=== PATIENT | female | born 1985 | race Caucasian/White ===

== ENCOUNTER → 2020-11-03 10:30 | Outpatient (BNVA) | payer MEDICAID, SELFPAY | PROVIDERS: PCP Student in an Organized Health Care Education/Training Program; Referring Provider Student in an Organized Health Care Education/Training Program; Visit Provider Student in an Organized Health Care Education/Training Program | DX: Z76.89 Persons encountering health services in other specified circumstances (principal) ==

== ENCOUNTER 2020-11-10 14:18 | Outpatient (REF) | payer MEDICAID, SELFPAY ==
[2020-11-10 16:01] LABS: Hematocrit 33.9 % (37-47); MANUAL DIFF FLAG NO; Mean Corpuscular Volume 71.2 fL (80-98); Red Blood Count 4.76 X10*6/uL (4.20-5.50); SCAN SMEAR FLAG 1
[2020-11-10 16:03] LABS: Basophils Percent Auto 0.5 % (0-2); Eosinophils Absolute Auto 0.2 X10*3/uL (0.0-0.4); Eosinophils Percent Auto 2.4 % (0-4); Hemoglobin 10.8 g/dl (12.0-16.0); Imm Gran Abs Auto 0.01 X10*3/uL (0.00-0.03); Imm Gran Pct Auto 0.2 % (0.0-0.4); Lymphocytes Absolute Auto 1.6 X10*3/uL (1.2-4.9); Lymphocytes Percent Auto 24.1 % (20-40); Mean Corpuscular HGB Conc 31.9 g/dl (31.0-35.0); Mean Corpuscular Hemoglobin 22.7 pg (27.0-33.0); Monocytes Absolute Auto 0.5 X10*3/uL (0.1-1.2); Monocytes Percent Auto 7.5 % (2-11); Neutrophils Absolute Auto 4.4 X10*3/uL (2.0-8.3); Neutrophils Percent Auto 65.3 % (45-73); Platelet Count 258 X10*3/uL (160-400); Red Cell Distribution Width 15.6 % (11.0-16.0); White Blood Count 6.7 X10*3/uL (4.8-10.8)
[2020-11-10 16:25] LABS: PLT ABN DIST 1
[2020-11-10 17:06] LABS: Alanine Aminotransferase 19 U/L (0-31); Albumin Level 4.7 g/dL (3.5-5.0); Alkaline Phosphatase 68 U/L (39-117); Anion Gap 14 (12-20); Aspartate Amino Transferase 19 U/L (5-31); Bilirubin Total 0.5 mg/dL (0.0-1.0); Blood Urea Nitrogen 11 mg/dL (9-16); C Reactive Protein 0.03 mg/dL (< or = 0.50); Calcium 8.7 mg/dL (8.4-10.2); Carbon Dioxide 24 mmol/L (22-29); Chloride 107 mmol/L (96-108); Estimated Glomerular Filt Rate > 60; Glucose Random 87 mg/dL (60-115); Potassium 4.3 mmol/l (3.3-5.1); Sodium 141 mmol/L (135-145)
[2020-11-10 17:19] LABS: Erythrocyte Sedimentation Rate 1 MM/HR (0-20)
== END 2020-11-10 14:19 | disposition home or self-care (01) ==
LOC: HO.LAB 14:18
PROVIDERS: PCP Student in an Organized Health Care Education/Training Program; Visit Provider Student in an Organized Health Care Education/Training Program
DX: M05.9 Rheumatoid arthritis with rheumatoid factor, unspecified (principal)
CPT/HCPCS: 36415; 80053; 85025; 85652; 86140

== ENCOUNTER 2021-02-02 10:13 | Outpatient (REF) | payer MEDICAID, SELFPAY ==
--- NOTE | ~2021-02-02 | XR_ITS ---
EXAMINATION: XR LUMBOSACRAL SPINE CLINICAL INFORMATION: Rheumatoid arthritis with rheumatoid factor COMPARISON: None TECHNIQUE: Three views of the lumbosacral spine. FINDINGS: No acute fracture or subluxation. Vertebral body height and alignment is maintained. Disc spaces are maintained. The sacroiliac joints are symmetric. The visualized sacrum is intact. XR/XR lumbar spine 2-3V IMPRESSION: Unremarkable appearance of the lumbar spine.
--- NOTE | ~2021-02-02 | XR_ITS ---
EXAMINATION: XR PELVIS CLINICAL INFORMATION: Rheumatoid arthritis with rheumatoid factor COMPARISON: None TECHNIQUE: AP view of the pelvis. FINDINGS: IUD in place. No fracture or dislocation. The hips are well aligned. The sacroiliac joints are symmetric. There may be very early sclerosis along the sacroiliac joints. The bowel gas pattern is unremarkable. XR/XR pelvis 1-2V IMPRESSION: There may be very early sclerosis along the sacroiliac joints. Otherwise unremarkable appearance of the pelvis.
[2021-02-02 11:34] LABS: Imm Gran Abs Auto 0.01 X10*3/uL (0.00-0.03); Imm Gran Pct Auto 0.2 % (0.0-0.4); MANUAL DIFF FLAG SCAN; Red Cell Distribution Width 16.8 % (11.0-16.0); SCAN SMEAR FLAG 1
[2021-02-02 11:36] LABS: Basophils Percent Auto 0.7 % (0-2); Eosinophils Absolute Auto 0.2 X10*3/uL (0.0-0.4); Eosinophils Percent Auto 2.9 % (0-4); Hematocrit 33.4 % (37-47); Hemoglobin 11.1 g/dl (12.0-16.0); Lymphocytes Percent Auto 18.5 % (20-40); Mean Corpuscular HGB Conc 33.2 g/dl (31.0-35.0); Mean Corpuscular Hemoglobin 23.7 pg (27.0-33.0); Mean Corpuscular Volume 71.2 fL (80-98); Monocytes Absolute Auto 0.4 X10*3/uL (0.1-1.2); Monocytes Percent Auto 7.7 % (2-11); Neutrophils Absolute Auto 3.8 X10*3/uL (2.0-8.3); Platelet Count 223 X10*3/uL (160-400); Red Blood Count 4.69 X10*6/uL (4.20-5.50); White Blood Count 5.5 X10*3/uL (4.8-10.8)
[2021-02-02 11:39] LABS: PLT ABN DIST 1
[2021-02-02 12:17] LABS: Alanine Aminotransferase 21 U/L (0-31); Albumin Level 4.7 g/dL (3.5-5.0); Alkaline Phosphatase 51 U/L (39-117); Anion Gap 13 (12-20); Aspartate Amino Transferase 20 U/L (5-31); Blood Urea Nitrogen 11 mg/dL (9-16); C Reactive Protein 0.03 mg/dL (< or = 0.50); Calcium 8.6 mg/dL (8.4-10.2); Carbon Dioxide 22 mmol/L (22-29); Chloride 106 mmol/L (96-108); Estimated Glomerular Filt Rate > 60; Glucose Random 97 mg/dL (60-115); Potassium 4.2 mmol/L (3.3-5.1); Sodium 137 mmol/L (135-145); Total Protein 7.8 g/dL (6.5-8.0)
[2021-02-02 13:43] LABS: Erythrocyte Sedimentation Rate 1 MM/HR (0-20)
== END 2021-02-02 10:14 | disposition home or self-care (01) ==
LOC: HO.LAB 10:13
PROVIDERS: PCP Student in an Organized Health Care Education/Training Program; Visit Provider Student in an Organized Health Care Education/Training Program
DX: M05.9 Rheumatoid arthritis with rheumatoid factor, unspecified (principal); B18.1 Chronic viral hepatitis B without delta-agent; Z79.899 Other long term (current) drug therapy
CPT/HCPCS: 36415; 72100; 72170; 80053; 85025; 85652; 86140; 99212

== ENCOUNTER 2021-07-20 11:13 | Outpatient (REF) | payer MEDICAID, SELFPAY ==
[2021-07-20 14:14] LABS: Basophils Percent Auto 0.4 % (0-2); MANUAL DIFF FLAG SCAN; Mean Corpuscular HGB Conc 32.5 g/dl (31.0-35.0); SCAN SMEAR FLAG 1
[2021-07-20 14:16] LABS: Eosinophils Absolute Auto 0.2 X10*3/uL (0.0-0.4); Hematocrit 32.9 % (37-47); Hemoglobin 10.7 g/dl (12.0-16.0); Imm Gran Abs Auto 0.02 X10*3/uL (0.00-0.03); Imm Gran Pct Auto 0.3 % (0.0-0.4); Lymphocytes Absolute Auto 1.2 X10*3/uL (1.2-4.9); Lymphocytes Percent Auto 16.6 % (20-40); Mean Corpuscular Hemoglobin 23.3 pg (27.0-33.0); Mean Corpuscular Volume 71.7 fL (80-98); Monocytes Absolute Auto 0.6 X10*3/uL (0.1-1.2); Neutrophils Percent Auto 71.7 % (45-73); Platelet Count 223 X10*3/uL (160-400); Red Blood Count 4.59 X10*6/uL (4.20-5.50); Red Cell Distribution Width 16.4 % (11.0-16.0)
[2021-07-20 14:22] LABS: PLT ABN DIST 1
[2021-07-20 14:40] LABS: Alanine Aminotransferase 15 U/L (0-31); Albumin Level 4.3 g/dL (3.5-5.0); Alkaline Phosphatase 44 U/L (39-117); Anion Gap 10 (12-20); Aspartate Amino Transferase 17 U/L (5-31); Bilirubin Total 0.9 mg/dL (0.0-1.0); Blood Urea Nitrogen 9 mg/dL (9-16); C Reactive Protein 0.04 mg/dL (< or = 0.50); Calcium 8.9 mg/dL (8.4-10.2); Carbon Dioxide 26 mmol/L (22-29); Chloride 107 mmol/L (96-108); Estimated Glomerular Filt Rate > 60; Glucose Random 89 mg/dL (60-115); Potassium 4.4 mmol/L (3.3-5.1); Sodium 139 mmol/L (135-145); Total Protein 7.2 g/dL (6.5-8.0)
[2021-07-20 15:03] LABS: Erythrocyte Sedimentation Rate 2 MM/HR (0-20)
== END 2021-07-20 11:14 | disposition home or self-care (01) ==
LOC: HO.LAB 11:13
PROVIDERS: PCP Student in an Organized Health Care Education/Training Program; Visit Provider Nurse Practitioner Family
DX: M05.9 Rheumatoid arthritis with rheumatoid factor, unspecified (principal); B18.1 Chronic viral hepatitis B without delta-agent; M54.5 Low back pain; Z79.899 Other long term (current) drug therapy
CPT/HCPCS: 36415; 80053; 85025; 85652; 86140; 99212

== ENCOUNTER 2021-10-04 10:00 | Outpatient (RCR) | payer MEDICAID, SELFPAY | END 2021-11-22 07:32 | disposition home or self-care (01) | LOC: HO.PTWFD 10:00 | PROVIDERS: PCP Student in an Organized Health Care Education/Training Program; Visit Provider Nurse Practitioner Family | DX: M54.5 Low back pain (principal) | CPT/HCPCS: 97110; 97140; 97161; 97530; 97535 ==

== ENCOUNTER 2021-10-25 09:28 | Outpatient (REF) | payer MEDICAID, SELFPAY ==
[2021-10-25 10:44] LABS: MANUAL DIFF FLAG NO
[2021-10-25 10:59] LABS: Basophils Percent Auto 0.8 % (0-2); Eosinophils Absolute Auto 0.1 X10*3/uL (0.0-0.4); Eosinophils Percent Auto 2.5 % (0-4); Hematocrit 32.7 % (37.0-47.0); Hemoglobin 10.5 g/dl (12.0-16.0); Imm Gran Abs Auto 0.02 X10*3/uL (0.00-0.03); Imm Gran Pct Auto 0.4 % (0.0-0.4); Lymphocytes Absolute Auto 1.2 X10*3/uL (1.2-4.9); Lymphocytes Percent Auto 22.2 % (20-40); Mean Corpuscular HGB Conc 32.1 g/dl (31.0-35.0); Mean Corpuscular Hemoglobin 23.1 pg (27.0-33.0); Mean Corpuscular Volume 71.9 fL (80.0-98.0); Monocytes Absolute Auto 0.4 X10*3/uL (0.1-1.2); Monocytes Percent Auto 7.5 % (2-11); Neutrophils Absolute Auto 3.5 x10*3/uL (2.0-8.3); Neutrophils Percent Auto 66.6 % (45-73); Platelet Count 222 X10*3/uL (160-400); Red Blood Count 4.55 X10*6/uL (4.20-5.50); Red Cell Distribution Width 16.5 % (11.0-16.0); White Blood Count 5.2 X10*3/uL (4.8-10.8)
[2021-10-25 11:29] LABS: Alanine Aminotransferase 16 U/L (0-31); Albumin Level 4.5 g/dL (3.5-5.0); Alkaline Phosphatase 41 U/L (39-117); Anion Gap 8 (12-20); Aspartate Amino Transferase 17 U/L (5-31); Blood Urea Nitrogen 8 mg/dL (9-16); C Reactive Protein 0.03 mg/dL (< or = 0.50); Calcium 9.6 mg/dL (8.4-10.2); Carbon Dioxide 28 mmol/L (22-29); Chloride 107 mmol/L (96-108); Estimated Glomerular Filt Rate > 60; Glucose Random 90 mg/dL (60-115); Iron 219 mcg/dL (30-160); Percent Iron Saturation 82 % (15-50); Sodium 139 mmol/L (135-145); Total Iron Binding Capacity 266 mcg/dL (228-428); Total Protein 7.5 g/dL (6.5-8.0); Unsaturated Iron Binding 47 ug/dL
[2021-10-25 11:39] LABS: Erythrocyte Sedimentation Rate 2 MM/HR (0-20)
[2021-10-25 11:55] LABS: Ferritin 272 ng/mL (10-122)
== END 2021-10-25 09:29 | disposition home or self-care (01) ==
LOC: HO.LAB 09:28
PROVIDERS: PCP Student in an Organized Health Care Education/Training Program; Visit Provider Nurse Practitioner Family
DX: M05.9 Rheumatoid arthritis with rheumatoid factor, unspecified (principal); B18.1 Chronic viral hepatitis B without delta-agent; M54.50 Low back pain, unspecified
CPT/HCPCS: 36415; 80053; 82728; 83540; 85025; 85652; 86140; 99212

== ENCOUNTER → 2021-11-03 14:34 | Outpatient (BNV) | payer MEDICAID, SELFPAY | PROVIDERS: PCP Student in an Organized Health Care Education/Training Program; Referring Provider Nurse Practitioner Family; Visit Provider Internal Medicine | DX: D64.9 Anemia, unspecified (principal) | CPT/HCPCS: 99203; 99213; 99214 ==

== ENCOUNTER 2021-12-29 12:59 | Outpatient (REF) | payer MEDICAID, SELFPAY ==
--- NOTE | ~2021-12-29 | XR_ITS ---
EXAMINATION: LEFT KNEE AND RIGHT HAND. CLINICAL INFORMATION: Rheumatoid arthritis with rheumatoid factor. COMPARISON: None TECHNIQUE: Left knee 4 views. Right hand 3 views. FINDINGS: Left knee: The tricompartment joint space is maintained normal. No visible acute fracture, dislocation or loose body seen. No abnormal joint effusion seen. The soft tissues are normal. Right hand: The PIP, DIP and MCP joint spaces are maintained normal. There is consent was short fifth metacarpal. No visible acute fracture, dislocation or subluxation seen. Especially as no abnormality involving the first digit. The intercarpal and radial-ulnar carpal joint space is maintained normal as well. XR/XR knee LT 3V IMPRESSION: Unremarkable left knee exam. 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
--- NOTE | ~2021-12-29 | XR_ITS ---
EXAMINATION: LEFT KNEE AND RIGHT HAND. CLINICAL INFORMATION: Rheumatoid arthritis with rheumatoid factor. COMPARISON: None TECHNIQUE: Left knee 4 views. Right hand 3 views. FINDINGS: Left knee: The tricompartment joint space is maintained normal. No visible acute fracture, dislocation or loose body seen. No abnormal joint effusion seen. The soft tissues are normal. Right hand: The PIP, DIP and MCP joint spaces are maintained normal. There is consent was short fifth metacarpal. No visible acute fracture, dislocation or subluxation seen. Especially as no abnormality involving the first digit. The intercarpal and radial-ulnar carpal joint space is maintained normal as well. XR/XR hand RT min 3V IMPRESSION: Unremarkable left knee exam. 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
[2021-12-29 14:37] LABS: MANUAL DIFF FLAG NO
[2021-12-29 14:58] LABS: Basophils Percent Auto 0.4 % (0-2); Imm Gran Abs Auto 0.02 X10*3/uL (0.00-0.03); Imm Gran Pct Auto 0.3 % (0.0-0.4); Mean Corpuscular Volume 71.2 fL (80.0-98.0); SCAN SMEAR FLAG 1
[2021-12-29 15:00] LABS: Eosinophils Absolute Auto 0.2 X10*3/uL (0.0-0.4); Eosinophils Percent Auto 2.4 % (0-4); Hematocrit 33.6 % (37.0-47.0); Hemoglobin 10.9 g/dl (12.0-16.0); Lymphocytes Absolute Auto 1.5 X10*3/uL (1.2-4.9); Mean Corpuscular HGB Conc 32.4 g/dl (31.0-35.0); Mean Corpuscular Hemoglobin 23.1 pg (27.0-33.0); Monocytes Absolute Auto 0.6 X10*3/uL (0.1-1.2); Monocytes Percent Auto 8.8 % (2-11); Neutrophils Absolute Auto 4.8 x10*3/uL (2.0-8.3); Neutrophils Percent Auto 67.1 % (45-73); Platelet Count 239 X10*3/uL (160-400); Red Blood Count 4.72 X10*6/uL (4.20-5.50); Red Cell Distribution Width 16.8 % (11.0-16.0); White Blood Count 7.2 X10*3/uL (4.8-10.8)
[2021-12-29 15:28] LABS: PLT ABN DIST 1
[2021-12-29 15:33] LABS: Alanine Aminotransferase 15 U/L (0-31); Albumin Level 4.6 g/dL (3.5-5.0); Alkaline Phosphatase 45 U/L (39-117); Anion Gap 10 (12-20); Aspartate Amino Transferase 18 U/L (5-31); Bilirubin Total 1.2 mg/dL (0.0-1.0); Blood Urea Nitrogen 12 mg/dL (9-16); C Reactive Protein 0.03 mg/dL (< or = 0.50); Calcium 9.6 mg/dL (8.4-10.2); Carbon Dioxide 27 mmol/L (22-29); Chloride 105 mmol/L (96-108); Estimated Glomerular Filt Rate > 60; Glucose Random 89 mg/dL (60-115); Potassium 4.2 mmol/L (3.3-5.1); Sodium 138 mmol/L (135-145)
[2021-12-29 15:35] LABS: Erythrocyte Sedimentation Rate 2 MM/HR (0-20)
== END 2021-12-29 13:00 | disposition home or self-care (01) ==
LOC: HO.LAB 12:59
PROVIDERS: PCP Student in an Organized Health Care Education/Training Program; Visit Provider Nurse Practitioner Family
DX: M05.9 Rheumatoid arthritis with rheumatoid factor, unspecified (principal); M25.562 Pain in left knee; M54.50 Low back pain, unspecified; B18.1 Chronic viral hepatitis B without delta-agent
CPT/HCPCS: 36415; 73130; 73562; 80053; 85025; 85652; 86140; 99212

== ENCOUNTER 2022-01-13 11:31 | Outpatient (REF) | payer MEDICAID, SELFPAY ==
[2022-01-13 12:42] LABS: MANUAL DIFF FLAG NO
[2022-01-13 13:37] LABS: Basophils Percent Auto 0.5 % (0-2); Eosinophils Absolute Auto 0.1 X10*3/uL (0.0-0.4); Eosinophils Percent Auto 2.2 % (0-4); Hemoglobin 10.5 g/dl (12.0-16.0); Imm Gran Abs Auto 0.01 X10*3/uL (0.00-0.03); Imm Gran Pct Auto 0.2 % (0.0-0.4); Lymphocytes Absolute Auto 1.4 X10*3/uL (1.2-4.9); Lymphocytes Percent Auto 22.8 % (20-40); Mean Corpuscular HGB Conc 31.8 g/dl (31.0-35.0); Mean Corpuscular Hemoglobin 23.1 pg (27.0-33.0); Mean Corpuscular Volume 72.5 fL (80.0-98.0); Monocytes Absolute Auto 0.4 X10*3/uL (0.1-1.2); Neutrophils Absolute Auto 4.1 x10*3/uL (2.0-8.3); Neutrophils Percent Auto 67.3 % (45-73); Platelet Count 230 X10*3/uL (160-400); Red Blood Count 4.55 X10*6/uL (4.20-5.50); Red Cell Distribution Width 16.6 % (11.0-16.0)
[2022-01-13 13:58] LABS: Alanine Aminotransferase 19 U/L (0-31); Albumin Level 4.5 g/dL (3.5-5.0); Alkaline Phosphatase 42 U/L (39-117); Anion Gap 10 (12-20); Aspartate Amino Transferase 20 U/L (5-31); Bilirubin Total 0.9 mg/dL (0.0-1.0); Blood Urea Nitrogen 10 mg/dL (9-16); Calcium 9.4 mg/dL (8.4-10.2); Carbon Dioxide 27 mmol/L (22-29); Chloride 106 mmol/L (96-108); Estimated Glomerular Filt Rate > 60; Glucose Random 96 mg/dL (60-115); Sodium 139 mmol/L (135-145); Total Protein 7.7 g/dL (6.5-8.0)
[2022-01-13 14:21] LABS: Ferritin 242 ng/mL (10-122)
[2022-01-13 14:39] LABS: Folate > 20.0 ng/mL (> or = 4.0); Vitamin B12 750 pg/mL (200-900)
[2022-01-16 04:39] LABS: HBS Num1 0.03 mIU/mL (0-7.99); HBc Num1 12.32 S/CO (0.00-0.79); ~HepC Num1 0.06 S/CO (0.00-0.79); ~Hepatitis B Surface Antibody NONREACTIVE (Nonreactive); ~Hepatitis C Antibody Nonreactive (Nonreactive)
[2022-01-16 05:25] LABS: HBc Num2 12.65 S/CO; HBc Num3 12.12 S/CO; Hepatitis B Core Antibody Reactive (Nonreactive)
[2022-01-16 05:41] LABS: HBsAGNum2 Reactive; HBsAGNum3 Reactive; Hepatitis B Surface Antigen Retest CNFM (Negative)
[2022-01-16 05:44] LABS: Hepatitis B Surface Antigen Rep Reactive (Negative)
[2022-01-16 14:46] LABS: Hepatitis B Viral DNA Qn - cp 3.89 Log IU/mL (NOT DETECTED); Hepatitis B Viral DNA Qn-IU/mL 7700 IU/mL (NOT DETECTED)
[2022-01-16 16:26] LABS: Transglutaminase Ab IgG <1.0 U/mL; Transglutaminase IgA <1.0 U/mL
[2022-01-16 20:21] LABS: HCV Log PCR <1.18 NOT DETECTED Log IU/mL (NOT DETECTED); HepC Viral Load <15 NOT DETECTED IU/mL (NOT DETECTED)
[2022-01-16 22:40] LABS: Hematocrit 34.4 % (35.0-45.0); Hemoglobin 10.5 g/dL (11.7-15.5); MCH 22.5 pg (27.0-33.0); MCV 73.8 fL (80.0-100.0); RBC 4.66 Million/uL (3.80-5.10); RDW 18.1 % (11.0-15.0)
[2022-01-18 04:18] LABS: Hepatitis A Antibody IgM 0.27 Index (0-0.79); ~Hepatitis A Antibody IgM Nonreactive (Nonreactive)
[2022-01-18 13:02] LABS: Hepatitis BE Antibody REACTIVE (NON-REACTIVE); Hepatitis BE Antigen NON-REACTIVE (NON-REACTIVE)
== END 2022-01-13 11:32 | disposition home or self-care (01) ==
LOC: HO.LAB 11:31
PROVIDERS: PCP Student in an Organized Health Care Education/Training Program; Visit Provider Internal Medicine Gastroenterology
DX: B18.1 Chronic viral hepatitis B without delta-agent (principal); D50.9 Iron deficiency anemia, unspecified; G89.29 Other chronic pain; R10.33 Periumbilical pain; K75.81 Nonalcoholic steatohepatitis (NASH)
CPT/HCPCS: 36415; 80053; 82607; 82728; 82746; 83020; 85014; 85018; 85025; 85041; 86364; 86704; 86706; 86707; 86709; 86803; 87340; 87350; 87517; 87522; 99202

== ENCOUNTER 2022-02-01 11:00 | Outpatient (RCR) | payer MEDICAID, SELFPAY ==
--- NOTE | 2022-01-16 14:57 | MHC.OT.OEV ---
[address] [phone] F: [phone] Occupational Therapy Evaluation Diagnosis: RIGHT HAND PAIN Date of Onset: 12/26/21 Attending Provider: KANWAL ARMENDARIZ Prescribed Treatment: EVAL AND TREAT History of Current Condition: PT REPORTS 2-3 WEEKS OF PAIN IN RIGHT HAND THAT RADIATES THROUGH THE ELBOW AND SHOULDER. PT RIGHT HAND X-RAY ON 12/29/21 SHOWS NORMAL JOINT SPACE IN PIPs, DIPs, AND MCPs AND SHORT 5TH METACARPAL. 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 DIFFICULTY WITH COOKING, CLEANING, OPENING JARS, AND LIFTING KIDS UP. Sleep: DIFFICULTY SLEEPING DUE TO PAIN Driving: DIFFICULTY DRIVING. PT REPORTS DRIVING WITH LEFT HAND ONLY Pain Assessment Pain Score: 4 Pain Scale Used: Numeric (0 - 10) Pain Location and Description: PAIN MAINLY IN THENAR EMINENCE, THUMB WEB SPACE, AND MCP JOINTS. WHEN PAIN BECOMES INTENSE IT RADIATES UP THROUGH LATERAL ELBOW AND SHOULDER. PAIN AT REST: 3-4/10 PAIN WHEN AGGRAVATED: 7-8/10 Aggravating Factors: GRIPPING/GRABBING, LIFTING CHILDREN, COOKING AND CLEANING Alleviating Factors: TRIALED IBEPROFEN AND TYLENOL FOR PAIN RELIEF, MINIMAL RELIEF TRIALED HEAT, SOME PAIN RELIEF TRAILED COLD, NO RELIEF Skin and Soft Tissue Assessment Skin and Soft Tissue: Swelling Comments: PT RIGHT D2 PIP LARGER THAN LEFT D2 PIP, PT REPORTS IT WAS FROM A CHILDHOOD INJURY. PT PRESENTS WITH SHORTENED B/L D5. Nerve assessment Ulnar Nerve: WNL Median Nerve: WNL Radial Nerve: WNL Comments: Sensory Assessment Temperature: Light Touch: Proprioception: Vibration: Comments: REPORTS SOME TINGLING IN RIGHT HAND. SEMMES JASMEET: RIGHT THENAR EMINENCE 3.61 LEFT THENAR EMINENCE 2.83 Edema Assessment Upper Extremity: Right Impaired Lower Extremity: Comments: SOME EDEMA IN RIGHT THENAR EMINENCE. Dexterity Assessment Dexterity: Not Tested Comments: DENIES DIFFICULTIES WITH FINE MOTOR TASKS WITH ADLs OR IADLs Special Tests Comments: FINKLESTEINS (+) EMPTY CAN TEST (+) AROM(PROM) Strength Cervical Cervical Flexion: Cervical Extension: Cervical Lateral Flexion: Cervical Rotation: Comments: WFL Shoulder Flexion: Extension: Abduction: Internal Rotation: External Rotation: Comments: WFL Flexion: Extension: Abduction: Internal Rotation: External Rotation: Comments: Elbow Flexion: Extension: Pronation: Supination: Comments: WFL Flexion: Extension: Pronation: Supination: Comments: Wrist Flexion: Extension: Ulnar Deviation: Radial Deviation: Comments: WFL Flexion: Extension: Ulnar Deviation: Radial Deviation: Comments: Thumb Thumb CMC Flexion: Thumb MCP Flexion: Thumb IP Flexion: Radial Abduction: Palmar Abduction: [place] (Kapandji 0-10): Comments: WFL Digits Index MCP: PIP: DIP: Long MCP: PIP: DIP: Ring MCP: PIP: DIP: Small MCP: PIP: DIP: Comments: WFL Gross Grasp: R 15 L 35 Lateral Pinch: R 10 L 14 Two-Point Pinch: Three-Jaw Roberto: Comments: Patient Education Primary Language: Nigerian Rn Home Care Required: Yes Current Knowledge: Understands information with skills for self-management Teaching Method: Audio/Video Demonstration Handouts Education Needs Identified on Evaluation: ADL's Disease Information Equipment Use Exercise Pain Safety How did patient/family demonstrate learning? Patient demonstrates Patient verbalizes Barriers to Learning: None Readiness for Learning: Accepting Who was educated? Patient Comments: [facility] [place] ENGINEER PRESENT FOR EVAL Plan of Care Assessment: 36 YO FEMALE REFERRED TO OT FOR RIGHT HAND PAIN. PT REPORTS PAIN HAS BEEN HIGH FOR THE PAST 3 WEEKS. PT HAD AN X-RAY ON 12/29/21 OF THE RIGHT HAND SHOWING NO FX OR DISLOCATION, AND NORMAL JOINT SPACE IN PIPs, DIPs AND MCPs. CURRENTLY, PT PRESENTS WITH RIGHT DECREASED WATCHER LOOKOUT TOWER STRENGTH AND PAIN THROUGHOUT THE RIGHT HAND, SPECIFICALLY IN THE THENAR EMINENCE, WEB SPACE AND MCPS. PT REPORTS SOMETIMES PAIN RADIATES THROUGH THE LATERAL ELBOW AND UP INTO THE SHOULDER, WITH SOME TINGLING IN THE RIGHT HAND. PT HAD (+) FINKLESTEINS TEST AND (+) EMPTY CAN TEST. 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 PT TO CONT OT SERVICES FOR PAIN MANAGEMENT, PT EDUCATION AND TO IMPROVE STRENGTH AND FUNCTION TO PROMOTE BEST ABILITY TO FUNCTION. STG Duration: 2 WEEKS Short Term Goals: IND WITH HEP PT TO REPORT IND WITH JOINT PROTECTION TECHNIQUES PT TO REPORT IND WITH HEAT MODALITY FOR PAIN RELIEF PT TO REPORT <2/10 PAIN AT REST PT WATCHER LOOKOUT TOWER STRENGTH >25 LBS LTG Duration: 4 WEEKS Logistics Officer Goals: PT TO REPORT PAIN <3/10 DURING LIGHT ACTIVITY PT WATCHER LOOKOUT TOWER STRENGTH >30 LBS QUICKDASH < 15 DEMO PROPER LIFTING TECHNIQUES UP TO 10 POUNDS WITH <4/10 PAIN Frequency and Duration: The patient will be seen 2X/WEEK FOR 4 WEEKS Treatment Plan: Therapeutic Exercise Therapeutic Activity Home Exercise Program Splinting Patient Education Edema Control ADL Training Ultrasound Iontophoresis Paraffin Fluidotherapy MHP Joint Mobilization Soft Tissue Mobilization Kinesiotaping EDUCATE AND PRACTICE TENDON GLIDES, TINNEL TEST TO LATERAL ELBOW FOR LATERAL EPICONDYLITIS Electronically Signed By: Christelle Marrero OT/s Reviewed/agree with student documentation: Yes Therapist: HANSA AGUIRRE OTR/L Please sign and return to therapist, Thank you for your referral.
--- NOTE | 2022-02-07 11:34 | MHC.OT.DC ---
[address] [phone] F: [phone] Occupational Therapy Discharge Note Provider: Inga Green Diagnosis: RIGHT HAND PAIN Date of Evaluation: 01/16/22 Date of Discharge: 02/07/22 Treatments to Date: 4 Cancellations to Date: 3 No Shows to Date: 0 Discharge Status: Improved Function Independent with HEP Patient Elected to Stop Discharge Summary: MS SAHU PRESENTED TO OT FOR HAND PAIN. A HAND BASED ORTHOSIS WAS FABRICATED FOR USE DURING IADLs, AND Pt WAS EDUCATED ON A HEP INCLUDING ISOMETRIC EXERCISES FOR THE HANDS AND PROXIMAL STRENGTHENING. Pt HAD DECREASED PAIN WITH USE OF HEAT MODALITIES, INCLUDING PARAFFIN WAX. Pt HAS ELECTED TO DISCONTINUE OT AND CONTINUE WITH A HOME BASED PROGRAM. D/C OT SERVICES. Electronically Signed By: GUNNER ROSAS/Katja Reviewed/agree with student documentation: N/A Therapist: Please Sign and return to therapist, thank you for your referral.
== END 2022-02-07 11:35 | disposition home or self-care (01) ==
LOC: HO.OT 11:00
PROVIDERS: PCP Student in an Organized Health Care Education/Training Program; Visit Provider Nurse Practitioner Family
DX: M05.9 Rheumatoid arthritis with rheumatoid factor, unspecified (principal); M79.641 Pain in right hand
CPT/HCPCS: 29130; 97110; 97140; 97165; 97760

== ENCOUNTER 2022-03-28 10:43 | Outpatient (REF) | payer MEDICAID, SELFPAY ==
[2022-03-28 13:36] LABS: Erythrocyte Sedimentation Rate 2 MM/HR (0-20)
[2022-03-28 13:44] LABS: Alanine Aminotransferase 14 U/L (0-31); Albumin Level 4.3 g/dL (3.5-5.0); Alkaline Phosphatase 43 U/L (39-117); Anion Gap 11 (12-20); Aspartate Amino Transferase 16 U/L (5-31); Bilirubin Total 0.7 mg/dL (0.0-1.0); Blood Urea Nitrogen 10 mg/dL (9-16); C Reactive Protein 0.04 mg/dL (< or = 0.50); Calcium 9.4 mg/dL (8.4-10.2); Carbon Dioxide 27 mmol/L (22-29); Chloride 106 mmol/L (96-108); Estimated Glomerular Filt Rate > 60; Glucose Random 86 mg/dL (60-115); Sodium 140 mmol/L (135-145); Total Protein 7.5 g/dL (6.5-8.0)
== END 2022-03-28 10:44 | disposition home or self-care (01) ==
LOC: HO.LAB 10:43
PROVIDERS: PCP Student in an Organized Health Care Education/Training Program; Visit Provider Nurse Practitioner Family
DX: M05.9 Rheumatoid arthritis with rheumatoid factor, unspecified (principal); M54.50 Low back pain, unspecified; M25.562 Pain in left knee; B18.1 Chronic viral hepatitis B without delta-agent
CPT/HCPCS: 36415; 80053; 85652; 86140; 99212

== ENCOUNTER 2022-07-27 12:42 | Outpatient (REF) | payer MEDICAID, SELFPAY ==
[2022-07-27 14:00] LABS: MANUAL DIFF FLAG NO
[2022-07-27 14:17] LABS: Basophils Absolute Auto 0.1 X10*3/uL (0.0-0.2); Basophils Percent Auto 0.7 % (0-2); Eosinophils Absolute Auto 0.2 X10*3/uL (0.0-0.4); Eosinophils Percent Auto 2.4 % (0-4); Hematocrit 32.7 % (37.0-47.0); Hemoglobin 10.7 g/dl (12.0-16.0); Imm Gran Abs Auto 0.02 X10*3/uL (0.00-0.03); Imm Gran Pct Auto 0.3 % (0.0-0.4); Lymphocytes Absolute Auto 1.7 X10*3/uL (1.2-4.9); Lymphocytes Percent Auto 22.2 % (20-40); Mean Corpuscular HGB Conc 32.7 g/dl (31.0-35.0); Mean Corpuscular Hemoglobin 22.9 pg (27.0-33.0); Monocytes Absolute Auto 0.6 X10*3/uL (0.1-1.2); Neutrophils Absolute Auto 5.1 x10*3/uL (2.0-8.3); Neutrophils Percent Auto 66.4 % (45-73); Platelet Count 267 X10*3/uL (160-400); Red Blood Count 4.67 X10*6/uL (4.20-5.50); Red Cell Distribution Width 16.5 % (11.0-16.0); White Blood Count 7.7 X10*3/uL (4.8-10.8)
[2022-07-27 14:26] LABS: Alanine Aminotransferase 16 U/L (0-31); Aspartate Amino Transferase 18 U/L (5-31); C Reactive Protein 0.13 mg/dL (< or = 0.50); Estimated Glomerular Filt Rate > 60
[2022-07-27 15:04] LABS: Erythrocyte Sedimentation Rate 5 MM/HR (0-20)
== END 2022-07-27 12:43 | disposition home or self-care (01) ==
LOC: HO.10HDL 12:42
PROVIDERS: Visit Provider Nurse Practitioner Family
DX: M05.9 Rheumatoid arthritis with rheumatoid factor, unspecified (principal); M25.562 Pain in left knee; B18.1 Chronic viral hepatitis B without delta-agent; M54.50 Low back pain, unspecified; Z79.899 Other long term (current) drug therapy
CPT/HCPCS: 36415; 82565; 84450; 84460; 85025; 85652; 86140; 99212

== ENCOUNTER 2022-10-23 12:35 | Outpatient (REF) | payer MEDICAID, SELFPAY ==
[2022-10-23 13:00] LABS: MANUAL DIFF FLAG NO
[2022-10-23 14:22] LABS: Basophils Percent Auto 0.4 % (0-2); Eosinophils Absolute Auto 0.1 X10*3/uL (0.0-0.4); Eosinophils Percent Auto 1.3 % (0-4); Hematocrit 30.9 % (37.0-47.0); Imm Gran Abs Auto 0.02 X10*3/uL (0.00-0.03); Imm Gran Pct Auto 0.3 % (0.0-0.4); Lymphocytes Absolute Auto 1.1 X10*3/uL (1.2-4.9); Lymphocytes Percent Auto 14.6 % (20-40); Mean Corpuscular HGB Conc 32.4 g/dl (31.0-35.0); Mean Corpuscular Hemoglobin 22.7 pg (27.0-33.0); Mean Corpuscular Volume 70.1 fL (80.0-98.0); Monocytes Absolute Auto 0.5 X10*3/uL (0.1-1.2); Neutrophils Absolute Auto 5.9 x10*3/uL (2.0-8.3); Neutrophils Percent Auto 76.4 % (45-73); Platelet Count 285 X10*3/uL (160-400); Red Blood Count 4.41 X10*6/uL (4.20-5.50); Red Cell Distribution Width 16.6 % (11.0-16.0); White Blood Count 7.7 X10*3/uL (4.8-10.8)
[2022-10-23 14:39] LABS: Alanine Aminotransferase 12 U/L (0-31); Albumin Level 4.2 g/dL (3.5-5.0); Alkaline Phosphatase 60 U/L (39-117); Anion Gap 10 (12-20); Aspartate Amino Transferase 15 U/L (5-31); Bilirubin Total 0.8 mg/dL (0.0-1.0); Blood Urea Nitrogen 10 mg/dL (9-16); Calcium 8.9 mg/dL (8.4-10.2); Carbon Dioxide 25 mmol/L (22-29); Chloride 108 mmol/L (96-108); Estimated Glomerular Filt Rate > 60; Glucose Random 88 mg/dL (60-115); Potassium 3.9 mmol/L (3.3-5.1); Sodium 139 mmol/L (135-145); Total Protein 7.6 g/dL (6.5-8.0)
[2022-10-24 16:03] LABS: Hepatitis B Viral DNA Qn - cp 3.59 Log IU/mL (NOT DETECTED); Hepatitis B Viral DNA Qn-IU/mL 3910 IU/mL (NOT DETECTED)
[2022-10-25 13:14] LABS: HBsAGNum2 Reactive; HBsAGNum3 Reactive
[2022-10-25 13:22] LABS: Hepatitis B Surface Antigen Reactive (Negative); Hepatitis B Surface Antigen Retest CNFM (Negative)
[2022-10-25 13:23] LABS: Neutralization % 97
[2022-10-25 23:23] LABS: Hepatitis BE Antibody REACTIVE (NON-REACTIVE); Hepatitis BE Antigen NON-REACTIVE (NON-REACTIVE)
[2022-10-28 10:48] LABS: Hepatitis B Core Antibody IgM NON-REACTIVE (NON-REACTIVE)
== END 2022-10-23 12:36 | disposition home or self-care (01) ==
LOC: HO.LAB 12:35
PROVIDERS: PCP Student in an Organized Health Care Education/Training Program; Visit Provider Internal Medicine Gastroenterology
DX: K75.81 Nonalcoholic steatohepatitis (NASH) (principal); B18.1 Chronic viral hepatitis B without delta-agent
CPT/HCPCS: 36415; 80053; 85025; 86705; 86707; 87340; 87350; 87517; 99212

== ENCOUNTER 2022-11-27 11:02 | Outpatient (REF) | payer MEDICAID, SELFPAY ==
[2022-11-27 13:36] LABS: C Reactive Protein < 0.10 mg/dL (< or = 0.50)
[2022-11-27 13:45] LABS: Erythrocyte Sedimentation Rate 2 MM/HR (0-20)
== END 2022-11-27 11:03 | disposition home or self-care (01) ==
LOC: HO.LAB 11:02
PROVIDERS: PCP Student in an Organized Health Care Education/Training Program; Visit Provider Nurse Practitioner Family
DX: M05.9 Rheumatoid arthritis with rheumatoid factor, unspecified (principal); M25.562 Pain in left knee; B18.1 Chronic viral hepatitis B without delta-agent
CPT/HCPCS: 36415; 85652; 86140; 99212

== ENCOUNTER 2022-12-04 09:10 | Outpatient (REF) | payer MEDICAID, SELFPAY ==
--- NOTE | ~2022-12-04 | US_ITS ---
EXAMINATION: US ABDOMEN LIMITED WITH LIVER ELASTOGRAPHY CLINICAL INFORMATION: Nonalcoholic steatohepatitis. COMPARISON: Abdominal ultrasound dated 09/24/1718. TECHNIQUE: Real-time imaging of the abdominal viscera. Noninvasive ultrasound liver fibrosis assessment is performed using Jerman ElastPQ point quantification shear wave elastography (2D-SWE) with a C5-2 MHz transducer. Multiple elastography samples are obtained. FINDINGS: PANCREAS: Normal. The visualized pancreatic head and body are normal in appearance. The remainder of the pancreas is obscured from visualization by the overlying bowel gas. LIVER: The liver demonstrates normal size, contour and generally increased echogenicity. No focal lesion or intrahepatic biliary duct dilatation. The right lobe measures 14.9 cm in length. The left lobe measures 9.4 cm in length. Portal flow is towards the liver (hepatopetal). Shear wave liver elastography median stiffness is 1.29 m/s (reference: normal median stiffness is 1.3 m/s or less). IQR/median stiffness to assess sampling precision is 0.13 (reference: good quality data set is IQR/median stiffness of 0.15 or less). GALLBLADDER: Normal. The gallbladder is physiologically distended without evidence of stones, sludge, polyps, wall thickening or pericholecystic fluid. COMMON BILE DUCT: Normal in caliber measuring 0.2 cm in diameter. RIGHT KIDNEY: Normal. No hydronephrosis. No renal calculi or focal parenchymal lesions. The kidney measures 12.4 cm in maximum dimension. FREE FLUID: None. US/US abdomen dockery w elastography IMPRESSION: 1. There is generalized increase in hepatic echotexture, consistent with fatty infiltration or hepatocellular disease. Please correlate clinically. No focal hepatic mass or intrahepatic biliary dilatation is seen. 2. Liver elastography: Measurements are consistent with a high probability of normal liver stiffness. REFERENCE: Society of Radiologists in Ultrasound Liver Stiffness Thresholds (2020): LIVER STIFFNESS THRESHOLDS: *Liver Stiffness equal or less than 1.3 m/s: High probability of being normal. *Liver Stiffness less than 1.7 m/s: In the absence of other known clinical signs, rules out compensated advanced chronic liver disease. *Liver Stiffness 1.7-2.1 m/s: Suggestive of compensated advanced chronic liver disease but need further test for confirmation. *Liver Stiffness over 2.1 m/s: Rules in compensated advanced chronic liver disease. *Liver Stiffness over 2.4 m/s: Suggestive of clinically significant portal hypertension. QUALITY OF DATA SET: *IQR/Median value equal or less than 0.15 implies a quality data set. *IQR/Median value over 0.15 implies a poor quality data set. SIGNIFICANT CHANGE FROM PRIOR EXAM: Significant change if liver stiffness measurement is 10% or greater from prior exam. OTHER CONSIDERATIONS: The stage of liver fibrosis may be overestimated in the setting of acute hepatitis, liver inflammation, elevated liver function tests, hepatic vascular congestion, obstructive cholestasis, non-fasting state, and infiltrative diseases such as amyloidosis and lymphoma. In some patients with NAFLD, the liver stiffness thresholds for compensated advanced chronic liver disease may be lower. In causes other than viral hepatitis and NAFLD, liver stiffness thresholds are not well established.
== END 2022-12-04 09:11 | disposition home or self-care (01) ==
LOC: HO.US 09:10
PROVIDERS: PCP Student in an Organized Health Care Education/Training Program; Visit Provider Internal Medicine Gastroenterology
DX: K75.81 Nonalcoholic steatohepatitis (NASH) (principal); K74.60 Unspecified cirrhosis of liver
CPT/HCPCS: 76705; 76981

== ENCOUNTER → 2023-01-15 11:55 | Outpatient (BNVA) | payer MEDICAID, SELFPAY | PROVIDERS: PCP Student in an Organized Health Care Education/Training Program; Visit Provider Nurse Practitioner Family | DX: M05.9 Rheumatoid arthritis with rheumatoid factor, unspecified (principal); M25.512 Pain in left shoulder; R20.0 Anesthesia of skin; R20.2 Paresthesia of skin; B18.1 Chronic viral hepatitis B without delta-agent | CPT/HCPCS: 99212 ==

== ENCOUNTER 2023-03-23 10:09 | Outpatient (REF) | payer MEDICAID, SELFPAY ==
[2023-03-23 11:29] LABS: MANUAL DIFF FLAG NO
[2023-03-23 12:08] LABS: Basophils Absolute Auto 0.1 X10*3/uL (0.0-0.2); Eosinophils Absolute Auto 0.5 X10*3/uL (0.0-0.4); Eosinophils Percent Auto 7.3 % (0-4); Hematocrit 31.5 % (37.0-47.0); Hemoglobin 10.3 g/dl (12.0-16.0); Imm Gran Abs Auto 0.02 X10*3/uL (0.00-0.03); Imm Gran Pct Auto 0.3 % (0.0-0.4); Lymphocytes Absolute Auto 1.1 X10*3/uL (1.2-4.9); Lymphocytes Percent Auto 17.2 % (20-40); Mean Corpuscular HGB Conc 32.7 g/dl (31.0-35.0); Mean Corpuscular Hemoglobin 23.1 pg (27.0-33.0); Mean Corpuscular Volume 70.8 fL (80.0-98.0); Monocytes Absolute Auto 0.5 X10*3/uL (0.1-1.2); Monocytes Percent Auto 8.3 % (2-11); Neutrophils Absolute Auto 4.1 x10*3/uL (2.0-8.3); Neutrophils Percent Auto 65.9 % (45-73); Platelet Count 238 X10*3/uL (160-400); Red Blood Count 4.45 X10*6/uL (4.20-5.50); Red Cell Distribution Width 16.4 % (11.0-16.0); White Blood Count 6.2 X10*3/uL (4.8-10.8)
[2023-03-23 12:48] LABS: Erythrocyte Sedimentation Rate 2 MM/HR (0-20)
[2023-03-23 13:11] LABS: Alanine Aminotransferase 15 U/L (0-31); Albumin Level 4.4 g/dL (3.5-5.0); Alkaline Phosphatase 48 U/L (39-117); Anion Gap 9 (12-20); Aspartate Amino Transferase 18 U/L (5-31); Bilirubin Total 0.8 mg/dL (0.0-1.0); Blood Urea Nitrogen 9 mg/dL (9-16); C Reactive Protein < 0.10 mg/dL (< or = 0.50); Calcium 9.7 mg/dL (8.4-10.2); Carbon Dioxide 27 mmol/L (22-29); Chloride 108 mmol/L (96-108); Estimated Glomerular Filt Rate > 60; Glucose Random 82 mg/dL (60-115); Potassium 4.1 mmol/L (3.3-5.1); Sodium 140 mmol/L (135-145); Total Protein 7.4 g/dL (6.5-8.0)
[2023-03-23 13:31] LABS: Folate > 20.0 ng/mL (> or = 4.0); Vitamin B12 1237 pg/mL (200-900)
[2023-03-26 04:38] LABS: HBc Num1 10.65 S/CO (0.00-0.79)
[2023-03-26 05:16] LABS: HBc Num2 10.52 S/CO; HBc Num3 10.47 S/CO; Hepatitis B Core Antibody Reactive (Nonreactive)
[2023-03-26 08:38] LABS: Hepatitis B Viral DNA Qn - cp 3.61 Log IU/mL (NOT DETECTED); Hepatitis B Viral DNA Qn-IU/mL 4070 IU/mL (NOT DETECTED)
[2023-03-26 23:28] LABS: Hepatitis BE Antibody REACTIVE (NON-REACTIVE)
[2023-03-27 01:24] LABS: Hepatitis BE Antigen NON-REACTIVE (NON-REACTIVE)
[2023-03-27 12:09] LABS: Hepatitis B Core Antibody IgM NON-REACTIVE (NON-REACTIVE)
== END 2023-03-23 10:10 | disposition home or self-care (01) ==
LOC: HO.LAB 10:09
PROVIDERS: Nurse Practitioner Family; PCP Student in an Organized Health Care Education/Training Program; Visit Provider Internal Medicine Gastroenterology
DX: K75.81 Nonalcoholic steatohepatitis (NASH) (principal); M05.9 Rheumatoid arthritis with rheumatoid factor, unspecified; B18.1 Chronic viral hepatitis B without delta-agent
CPT/HCPCS: 36415; 80053; 82607; 82746; 85025; 85652; 86140; 86704; 86705; 86707; 87350; 87517; 99212

== ENCOUNTER → 2023-03-29 09:43 | Outpatient (BNVA) | payer MEDICAID, SELFPAY | PROVIDERS: PCP Student in an Organized Health Care Education/Training Program; Visit Provider Nurse Practitioner Family | DX: M05.9 Rheumatoid arthritis with rheumatoid factor, unspecified (principal); B18.1 Chronic viral hepatitis B without delta-agent | CPT/HCPCS: 99212 ==

== ENCOUNTER 2023-09-13 08:35 | Outpatient (REF) | payer MEDICAID, SELFPAY ==
[2023-09-13 09:08] LABS: Eosinophils Absolute Auto 0.2 X10*3/uL (0.0-0.4); Monocytes Absolute Auto 0.5 X10*3/uL (0.1-1.2); SCAN SMEAR FLAG 1
[2023-09-13 09:10] LABS: Basophils Percent Auto 0.5 % (0-2); Eosinophils Percent Auto 2.9 % (0-4); Hematocrit 30.7 % (37.0-47.0); Hemoglobin 9.9 g/dl (12.0-16.0); Imm Gran Abs Auto 0.08 X10*3/uL (0.00-0.03); Imm Gran Pct Auto 1.1 % (0.0-0.4); Lymphocytes Percent Auto 13.1 % (20-40); Mean Corpuscular HGB Conc 32.2 g/dl (31.0-35.0); Mean Corpuscular Hemoglobin 22.9 pg (27.0-33.0); Mean Corpuscular Volume 71.1 fL (80.0-98.0); Monocytes Percent Auto 6.8 % (2-11); Neutrophils Absolute Auto 5.5 x10*3/uL (2.0-8.3); Neutrophils Percent Auto 75.6 % (45-73); Platelet Count 229 X10*3/uL (160-400); Red Blood Count 4.32 X10*6/uL (4.20-5.50); Red Cell Distribution Width 16.3 % (11.0-16.0); White Blood Count 7.3 X10*3/uL (4.8-10.8)
[2023-09-13 09:24] LABS: PLT ABN DIST 1
[2023-09-13 09:25] LABS: MANUAL DIFF FLAG NO
[2023-09-13 09:52] LABS: Erythrocyte Sedimentation Rate 2 MM/HR (0-20)
[2023-09-13 11:26] LABS: Alanine Aminotransferase 10 U/L (0-31); Aspartate Amino Transferase 16 U/L (5-31); C Reactive Protein < 0.10 mg/dL (< or = 0.50); Estimated Glomerular Filt Rate > 60
== END 2023-09-13 08:36 | disposition home or self-care (01) ==
LOC: HO.LAB 08:35
PROVIDERS: PCP Student in an Organized Health Care Education/Training Program; Visit Provider Nurse Practitioner Family
DX: M05.9 Rheumatoid arthritis with rheumatoid factor, unspecified (principal); Z79.899 Other long term (current) drug therapy
CPT/HCPCS: 36415; 82565; 84450; 84460; 85025; 85652; 86140

== ENCOUNTER 2023-09-18 09:45 | Outpatient (AMB) | payer MEDICAID, SELFPAY ==
[2023-09-18 09:47] VITALS: BP 98/86; PULSE 85; TEMP 36.1; O2SAT 97; BMI 22.3
--- NOTE | 2023-09-18 09:47 | MHC.OFFVIS ---
Intake Vital Signs 09/18/23 09:47 Height 5 ft 2 in Weight 122 lb BMI 22.3 BP 98/86 Blood Pressure Location Rt brachial Position Sitting Pulse 85 Pulse Source Pulse Oximeter Temp 97 F Temp Source Skin Pulse Oximetry (%) 97 Oxygen Delivery Method Room Air Intake Visit Reasons: rheumatoid arhritis Intake Note: Patient presents today to follow up on RA. Last seen by Inga Green on 03/29/23. c/o left knee pain Rocket Motor Tester Required: Yes Rocket Motor Tester Language: [place] Citizen Rocket Motor Tester Name: Ankit Pierce Information Interpreted: non-clinical & clinical Accompanied by: Self / Same As Patient Allergies dust Allergy (Mild, Uncoded 09/18/23 09:50) Itchy Eyes pollen Allergy (Mild, Uncoded 09/18/23 09:50) Itchy Eyes HPI HPI Comments History of Present Illness Details Patient is a 37yoF who presents for follow-up on seropositive RA (RF+ CCP+). Last seen in January 2023. On Plaquenil 200 mg daily. Up-to-date with Ophthalmology exam, last visit was July 2022 and she has an upcoming appointment scheduled. Patient states she is feeling well today. She denies any joint pain or swelling. At last visit she was having some numbness in both arms and hands after lifting heavy boxes while moving. She states her numbness and tingling have resolved. She did not end up purchasing the cock-up splints. She denies any concerns today. She follows with GI for chronic hepatitis-B. Follows with Hematology for microcytic anemia, beta thalassemia trait. [facility] Medical History (Updated 09/18/23 @ 13:34 by NACHO Patten) Long-term use of hydroxychloroquine Chronic hepatitis B Seropositive rheumatoid arthritis Surgical History No pertinent past surgical history Social History Household Members: Spouse and Children Housing: Apartment Are you a primary neonatal intensive care nurse to a significant other at home: No Do you presently have visiting nurse or other home services: No Alcohol intake: never Patient Tobacco Use Status: Never used Tobacco e-Cigarette/Vaping Use: Never Used service: No Current occupational status: unemployed Review of Systems Const All systems reviewed & are unremarkable except as noted in HPI and below Physical Exam Vital Signs: Last Vital Signs Temp 97 F 09/18/23 09:47 Pulse 85 09/18/23 09:47 BP 98/86 09/18/23 09:47 Pulse Ox 97 09/18/23 09:47 Oxygen Delivery Method Room Air 09/18/23 09:47 BMI result Body Mass Index 22.3 APPEARANCE: Patient in no acute distress EYES: no redness, pupils equal, round and reactive to light, eyelids normal EARS: External ear normal. NOSE/SINUS: Airflow through both nares, no nasal discharge, no bleeding THROAT: Oral mucosa moist, no ulcerations NECK: No thyromegaly or masses, no adenopathy, trachea midline. HEART: Regular rhythm, S1-S2 heard, no murmurs, rubs or gallops. LUNG: Clear to auscultation throughout bilaterally, respiratory rate regular and non-labored. EXTREMITIES: No edema, no calf tenderness, normal peripheral pulses. NEURO: Oriented and alert x3. No focal weakness. Gait normal. SKIN: No inflammatory or neoplastic lesions. Normal color and turgor JOINT EXAM:? Cervical Spine: Full range of motion without pain; no tenderness. Thoracic Spine:? No tenderness on palpation. Lumbar Spine:? Alignment normal.? Full range of motion without pain, no tenderness to palpation of the lumbar spine. Hands:? Normal pain-free range of motion without tenderness, swelling, increased warmth or erythema. Able to make a full fist and has a good ticket scheduler strength. Wrists:? Normal pain-free range of motion without tenderness, swelling, increased warmth or erythema. Elbows: Normal pain-free range of motion without tenderness, swelling, increased warmth or erythema. Shoulders:?? LEFT: Full range of motion without pain. No tenderness, weakness, swelling, increased warmth or erythema. RIGHT: Full range of motion without pain. No tenderness, weakness, swelling, increased warmth or erythema. Knees:??LEFT: Normal pain-free range of motion without tenderness. RIGHT: Normal pain-free range of motion without tenderness. Ankles:? Normal pain-free range of motion without tenderness, swelling, increased warmth or erythema. Feet: Normal pain-free range of motion without tenderness, swelling, increased warmth or erythema Results Reviewed Results Reviewed: Laboratory Tests 0403/23/23 03/23/23 13:53 11:27 11:27 Hgb Hct MCV MCH Immature Gran % (Auto) ESR Creatinine Ferritin 241 H AST ALT C-Reactive Protein Vitamin B12 1237 H Hep B DNA copies/mL 3.61 H Hep B DNA (IU/mL) 4070 H Hepatitis Be Antibody REACTIVE A 09/13/23 09/13/23 09/13/23 08:48 08:48 08:48 Hgb 9.9 L Hct 30.7 L MCV 71.1 L MCH 22.9 L Immature Gran % (Auto) 1.1 H ESR 2 Creatinine Ferritin AST 16 ALT 10 C-Reactive Protein < 0.10 Vitamin B12 Hep B DNA copies/mL Hep B DNA (IU/mL) Hepatitis Be Antibody 09/13/23 08:48 Hgb Hct MCV MCH Immature Gran % (Auto) ESR Creatinine 0.65 Ferritin AST ALT C-Reactive Protein Vitamin B12 Hep B DNA copies/mL Hep B DNA (IU/mL) Hepatitis Be Antibody Assessment & Plan Assessment & Plan (1) Seropositive rheumatoid arthritis: Comment: Plaquenil: November 2018-present Code(s): M05.9 - Rheumatoid arthritis with rheumatoid factor, unspecified (2) Chronic hepatitis B: Comment: Previously followed with ID, had been cleared to start DMARD therapy. Now following with GI. If in the future there is need to advance her Rheumatoid arthritis treatment to a biologic, she would require treatment to prevent acute hep B flare. Code(s): B18.1 - Chronic viral hepatitis B without delta-agent (3) Long-term use of hydroxychloroquine: Code(s): Z79.899 - Other adjunct faculty for medical terminology (current) drug therapy (4) Beta thalassemia trait: Code(s): D56.3 - Thalassemia minor (5) Microcytic anemia: Code(s): D50.9 - Iron deficiency anemia, unspecified Plan #Seropositive RA (RF+ CCP+). Ms Barragan has been taking Plaquenil 200 mg daily for approximately 3 years for RA. When I review her medical records, oral history and diagnostics, I could not identify active RA disease. Rheumatology workup labs from 2018 shows weakly positive CCP at 27 and +RF 17.7, all else WNL including ESR/CRP which continues to be WNL over the years. Subsequent Xrays of hand. knees and elbows were unremarkable. Patient denies all symptoms of RA to include prolonged morning stiffness, joint tenderness, swelling and redness to the hands, feet, knees, elbow or shoulders. She denies ever having respiratory concerns, joint swelling or joint tenderness. She has had thumb pain which started when she was moving and carry large boxes. This was helped and resolved by PT. What she also described is sciatic pain which she experienced mainly at night while laying on her side. She stated that the pain started from her left buttock (mild tenderness) and travels down to the side of her left knee where it hurts more. Since she started taking the Plaquenil she did say it does not wake her up at night anymore. She does continue to experience fatigue in her legs when she stands up for longer periods of time but she has no other significant complaint. I have discussed with the patient that since she finds improvement for her sciatic nerve pain using Plaquenil then it is reasonable that she should continue, though she seem asymptomatic for RA. In addition, she does have +CCP from 2018, The Anti-CCP has a high specificity to RA. It is also ashley to continue to HCQ which could be modulating the immune system and delaying active onset. She also has chronic Hep B infection. If this were to become symptomatic,, it is important to differentiate any HBV related arthropathy from that of RA. # Chronic hep B: Found to have chronic Hep B on screening labs and was previously cleared by ID to start DMARD therapy. ? Now following with GI. If in the future there is need to advance her Rheumatoid arthritis treatment to a biologic, she would require treatment to prevent acute hep B flare. #Seismographer Use of HCQ/Anmeia: Sometimes the use of HCQ can cause blood dyscrasias. There has been a slight in her hemoglobin from 10.3 to 9.9 since last visit. Given that she has longstanding anemia we will continue to keep an eye on this. She does follow with Hematology. Additionally, she needs annual eye exam with the drapery estimator. Patient is up-to-date with Ophthalmology exams. Patient is up-to-date with eye exam Follow-up in 6 months with labs prior or sooner if needed. Orders: Orders C Reactive Protein Today M05.9 - Rheumatoid arthritis with rheumatoid factor, unspecified Cyclic Citrullinated Peptide Today M05.9 - Rheumatoid arthritis with rheumatoid factor, unspecified Erythrocyte Sedimentation Rate Today M05.9 - Rheumatoid arthritis with rheumatoid factor, unspecified Complete Blood Count Auto Diff Today M05.9 - Rheumatoid arthritis with rheumatoid factor, unspecified Comprehensive Met. Panel Today M05.9 - Rheumatoid arthritis with rheumatoid factor, unspecified Rheumatoid Factor Today M05.9 - Rheumatoid arthritis with rheumatoid factor, unspecified Coding Level of Care Code Est Pt Level 4 (56406) Diagnoses Seropositive rheumatoid arthritis M05.9 Chronic hepatitis B B18.1 Long-term use of hydroxychloroquine Z79.899 Beta thalassemia trait D56.3 Microcytic anemia D50.9
== END 2023-09-18 10:40 | disposition home or self-care (01) ==
PROVIDERS: PCP Student in an Organized Health Care Education/Training Program; Visit Provider Nurse Practitioner Family
DX: M05.79 Rheumatoid arthritis with rheumatoid factor of multiple sites without organ or systems involvement (principal); B18.1 Chronic viral hepatitis B without delta-agent; Z79.899 Other long term (current) drug therapy; D56.3 Thalassemia minor; D50.9 Iron deficiency anemia, unspecified
CPT/HCPCS: 99214

== ENCOUNTER → 2023-09-18 09:45 | Outpatient (BNVA) | payer MEDICAID, SELFPAY | PROVIDERS: PCP Student in an Organized Health Care Education/Training Program; Visit Provider Nurse Practitioner Family | DX: M05.9 Rheumatoid arthritis with rheumatoid factor, unspecified (principal); B18.1 Chronic viral hepatitis B without delta-agent; D56.3 Thalassemia minor; D50.9 Iron deficiency anemia, unspecified; Z79.899 Other long term (current) drug therapy | CPT/HCPCS: 99212 ==

== ENCOUNTER 2023-11-12 10:32 | Outpatient (AMB) | payer MEDICAID, SELFPAY ==
[2023-11-12 10:38] VITALS: BP 101/59; PULSE 85; BMI 22.3
--- NOTE | 2023-11-12 10:38 | A.OFFVIS_ITS ---
Intake Vital Signs 11/12/23 10:38 Height 5 ft 2 in Weight 122 lb BMI 22.3 BP 101/59 L Blood Pressure Location Lt brachial Position Sitting Pulse 85 Intake Visit Reasons: follow up PT R/S from 07/20/23 Intake Note: Kiki presents in the office as a follow up. CC: She states that she is not having any concerns today. Patient seen the Retail Client Solutions Analyst and the notes state something to discuss with the GI provider. It Infrastructure Project Manager Required: Yes It Infrastructure Project Manager Name: Ankit Allergies dust Allergy (Mild, Uncoded 11/12/23 10:41) Itchy Eyes pollen Allergy (Mild, Uncoded 11/12/23 10:41) Itchy Eyes HPI follow up PT R/S from 07/20/23 HPI Details 38 yr old f with hx of RA being seen for f/u for Hep B RECAP: she has been on plaquenil for RA Hep b labs positive, Hep d negative LFT normal she says she knew she had hep b from she does not drink alcohol LABS: 01/2022--LFt nml, HBV VL--7700, HBe Ag--neg, Hep C neg US: 12/04/22 -normal elastography, increased echogenicity -- INTERIM: discussed US with likely fatty liver laureano mostly in her diet, niot much exercise she denies abdominal pain no nausea or vomiting denies rectal bleeding, no melena joints are okl with plaquenil she has blaoting a lot EXAM: GENERAL: The patient is well developed and nontoxic. VITAL SIGNS:see workflow HEENT: Nonicteric sclerae, PERRLA, EOMI. Oropharynx clear. Moist mucous membranes. Conjunctivae appear well perfused. No thyroid mass. CHEST: Chest wall is nontender. HEART: Regular rate and rhythm without murmurs. LUNGS: Clear to auscultation bilaterally. ABDOMEN: Soft, positive bowel sounds, nontender, no organomegaly.no flank tenderness SKIN: No rash, no excessive bruising, petechiae, or purpura. NEUROLOGIC: Cranial nerves II-XII intact without motor/sensory deficit. A/P: 1/ Chronic Hep B, e Ag neg, nml LFt -- i mmune tolerant phase. 2/ Chronic anemia, microcytosis, prob th alaseemia 3/ RA: On plaquenil and is controlling h er disease right now PLAN: 1/recheck labs today, make sure not ente ring immune active phase 2/ As noted before---If she has to escal ate RA treatment to biologics then she would need treatment to prevent acute hep B flare 3/ US liver for monitoring 4/ given diet advise, low fat diet, more fish less red meat also increase black coffee or green tea intake 2-4 cups to reduce risks of liver fibrosis in future, vacc 5/ bloating --trial of rifaximin, advise d to watch for dairy intolerance [facility] Medical History Long-term use of hydroxychloroquine Chronic hepatitis B Seropositive rheumatoid arthritis Surgical History No pertinent past surgical history Social History Household Members: Spouse and Children Housing: Apartment Are you a primary student career development specialist to a significant other at home: No Do you presently have visiting nurse or other home services: No Alcohol intake: never Patient Tobacco Use Status: Never used Tobacco e-Cigarette/Vaping Use: Never Used service: No Current occupational status: unemployed Physical Exam Vital Signs: Last Vital Signs Pulse 85 11/12/23 10:38 BP 101/59 L 11/12/23 10:38 BMI result Body Mass Index 22.3 Assessment & Plan Assessment & Plan (1) Chronic hepatitis B: Comment: Code(s): B18.1 - Chronic viral hepatitis B without delta-agent Plan: PLAN: 1/recheck labs today, make sure not entering immune active phase 2/ As noted before---If she has to escalate RA treatment to biologics then she would need treatment to prevent acute hep B flare 3/ US liver for monitoring 4/ given diet advise, low fat diet, more fish less red meat also increase black coffee or green tea intake 2-4 cups to reduce risks of liver fibrosis in future, vacc 5/ bloating --trial of rifaximin, advised to watch for dairy intolerance Orders: Orders Complete Blood Count Auto Diff 11/12/23 B18.1 - Chronic viral hepatitis B without delta-agent US abdomen dockery w elastography 11/12/23 B18.1 - Chronic viral hepatitis B without delta-agent, K74.60 - Unspecified cirrhosis of liver, K75.81 - Nonalcoholic steatohepatitis (CHENG) Comprehensive Met. Panel 11/12/23 B18.1 - Chronic viral hepatitis B without delta-agent, K75.81 - Nonalcoholic steatohepatitis (CHENG) Hepatitis B Viral DNA Qn 11/12/23 B18.1 - Chronic viral hepatitis B without delta-agent Medications: New rifaximin 550 mg PO TID 2 weeks 42 tabs 0RF Coding Level of Care Code Est Pt Level 4 (19038) Diagnoses Chronic hepatitis B B18.1
== END 2023-11-12 11:24 | disposition home or self-care (01) ==
PROVIDERS: PCP Student in an Organized Health Care Education/Training Program; Referring Provider Student in an Organized Health Care Education/Training Program; Visit Provider Internal Medicine Gastroenterology
DX: B18.1 Chronic viral hepatitis B without delta-agent (principal)
CPT/HCPCS: 99214

== ENCOUNTER → 2023-11-12 10:32 | Outpatient (BNVA) | payer MEDICAID, SELFPAY | PROVIDERS: PCP Student in an Organized Health Care Education/Training Program; Visit Provider Internal Medicine Gastroenterology | DX: B18.1 Chronic viral hepatitis B without delta-agent (principal) | CPT/HCPCS: 99212 ==

== ENCOUNTER 2023-12-14 09:46 | Outpatient (REF) | payer MEDICAID, SELFPAY ==
--- NOTE | ~2023-12-14 | US_ITS ---
EXAMINATION: US ABDOMEN LIMITED WITH LIVER ELASTOGRAPHY CLINICAL INFORMATION: Nonalcoholic steatohepatitis. COMPARISON: None available. TECHNIQUE: Real-time imaging of the abdominal viscera. Noninvasive ultrasound liver fibrosis assessment is performed using Jerman ElastPQ point quantification shear wave elastography (2D-SWE) with a C5-2 MHz transducer. Multiple elastography samples are obtained. FINDINGS: PANCREAS: Normal. The visualized pancreatic head and body are normal in appearance. The remainder of the pancreas is obscured from visualization by the overlying bowel gas. LIVER: Normal. The liver demonstrates normal size, contour and echogenicity. No focal lesion or intrahepatic biliary duct dilatation. The right lobe measures 14.2 cm in length. The left lobe measures 11.1 cm in length. Portal flow is towards the liver (hepatopetal). Shear wave liver elastography median stiffness is 1.27 m/s (reference: normal median stiffness is 1.3 m/s or less). IQR/median stiffness to assess sampling precision is 0.09 (reference: good quality data set is IQR/median stiffness of 0.15 or less). GALLBLADDER: Multiple nonmobile polyps are seen, the largest measuring 3 mm. The gallbladder is physiologically distended without evidence of stones, sludge, polyps, wall thickening or pericholecystic fluid. COMMON BILE DUCT: Normal in caliber measuring 0.6 cm in diameter. RIGHT KIDNEY: Normal. No hydronephrosis. No renal calculi or focal parenchymal lesions. The kidney measures 13.0 cm in maximum dimension. FREE FLUID: None. US/US abdomen dockery w elastography IMPRESSION: 1. Multiple tiny gallbladder polyps are seen, likely cholesterol polyps. The largest of these measures only 3 mm. No specific imaging follow-up is recommended. 2. Liver elastography: Measurements are consistent with a high probability of normal liver stiffness. REFERENCE: Society of Radiologists in Ultrasound Liver Stiffness Thresholds (2020): LIVER STIFFNESS THRESHOLDS: *Liver Stiffness equal or less than 1.3 m/s: High probability of being normal. *Liver Stiffness less than 1.7 m/s: In the absence of other known clinical signs, rules out compensated advanced chronic liver disease. *Liver Stiffness 1.7-2.1 m/s: Suggestive of compensated advanced chronic liver disease but need further test for confirmation. *Liver Stiffness over 2.1 m/s: Rules in compensated advanced chronic liver disease. *Liver Stiffness over 2.4 m/s: Suggestive of clinically significant portal hypertension. QUALITY OF DATA SET: *IQR/Median value equal or less than 0.15 implies a quality data set. *IQR/Median value over 0.15 implies a poor quality data set. SIGNIFICANT CHANGE FROM PRIOR EXAM: Significant change if liver stiffness measurement is 10% or greater from prior exam. OTHER CONSIDERATIONS: The stage of liver fibrosis may be overestimated in the setting of acute hepatitis, liver inflammation, elevated liver function tests, hepatic vascular congestion, obstructive cholestasis, non-fasting state, and infiltrative diseases such as amyloidosis and lymphoma. In some patients with NAFLD, the liver stiffness thresholds for compensated advanced chronic liver disease may be lower. In causes other than viral hepatitis and NAFLD, liver stiffness thresholds are not well established.
[2023-12-14 10:41] LABS: MANUAL DIFF FLAG NO
[2023-12-14 11:10] LABS: Basophils Percent Auto 0.6 % (0-2); Eosinophils Absolute Auto 0.1 X10*3/uL (0.0-0.4); Eosinophils Percent Auto 1.3 % (0-4); Hematocrit 29.7 % (37.0-47.0); Hemoglobin 9.6 g/dl (12.0-16.0); Imm Gran Abs Auto 0.03 X10*3/uL (0.00-0.03); Imm Gran Pct Auto 0.5 % (0.0-0.4); Lymphocytes Absolute Auto 1.3 X10*3/uL (1.2-4.9); Lymphocytes Percent Auto 20.5 % (20-40); Mean Corpuscular HGB Conc 32.3 g/dl (31.0-35.0); Mean Corpuscular Hemoglobin 22.7 pg (27.0-33.0); Mean Corpuscular Volume 70.4 fL (80.0-98.0); Mean Platelet Volume 11.6 fL (9.4-12.3); Monocytes Absolute Auto 0.5 X10*3/uL (0.1-1.2); Monocytes Percent Auto 7.6 % (2-11); Neutrophils Absolute Auto 4.4 x10*3/uL (2.0-8.3); Neutrophils Percent Auto 69.5 % (45-73); Platelet Count 229 X10*3/uL (160-400); Red Blood Count 4.22 X10*6/uL (4.20-5.50); Red Cell Distribution Width 16.1 % (11.0-16.0); White Blood Count 6.4 X10*3/uL (4.8-10.8)
[2023-12-14 11:37] LABS: Alanine Aminotransferase 16 U/L (0-31); Albumin Level 4.1 g/dL (3.5-5.0); Alkaline Phosphatase 47 U/L (39-117); Anion Gap 11 (12-20); Aspartate Amino Transferase 17 U/L (5-31); Bilirubin Total 0.5 mg/dL (0.0-1.0); Blood Urea Nitrogen 7 mg/dL (9-16); Carbon Dioxide 26 mmol/L (22-29); Chloride 106 mmol/L (96-108); Estimated Glomerular Filt Rate > 60; Glucose Random 84 mg/dL (60-115); Potassium 3.8 mmol/L (3.3-5.1); Sodium 139 mmol/L (135-145); Total Protein 7.7 g/dL (6.5-8.0)
[2023-12-18 14:48] LABS: Hepatitis B Viral DNA Qn - cp 3.69 Log IU/mL (NOT DETECTED); Hepatitis B Viral DNA Qn-IU/mL 4910 IU/mL (NOT DETECTED)
== END 2023-12-14 09:47 | disposition home or self-care (01) ==
LOC: HO.US 09:46
PROVIDERS: PCP Student in an Organized Health Care Education/Training Program; Visit Provider Internal Medicine Gastroenterology
DX: K75.81 Nonalcoholic steatohepatitis (NASH) (principal); K74.60 Unspecified cirrhosis of liver; B18.1 Chronic viral hepatitis B without delta-agent
CPT/HCPCS: 36415; 76705; 76981; 80053; 85025; 87517

== ENCOUNTER 2024-01-16 09:44 | Outpatient (REF) | payer MEDICAID, SELFPAY ==
[2024-01-16 14:18] LABS: MANUAL DIFF FLAG NO
[2024-01-16 14:40] LABS: Basophils Percent Auto 0.6 % (0-2); Eosinophils Absolute Auto 0.2 X10*3/uL (0.0-0.4); Eosinophils Percent Auto 2.4 % (0-4); Hematocrit 31.4 % (37.0-47.0); Hemoglobin 10.4 g/dl (12.0-16.0); Imm Gran Abs Auto 0.02 X10*3/uL (0.00-0.03); Imm Gran Pct Auto 0.3 % (0.0-0.4); Lymphocytes Absolute Auto 1.5 X10*3/uL (1.2-4.9); Lymphocytes Percent Auto 22.4 % (20-40); Mean Corpuscular HGB Conc 33.1 g/dl (31.0-35.0); Mean Corpuscular Hemoglobin 23.3 pg (27.0-33.0); Mean Corpuscular Volume 70.4 fL (80.0-98.0); Monocytes Absolute Auto 0.6 X10*3/uL (0.1-1.2); Monocytes Percent Auto 9.2 % (2-11); Neutrophils Absolute Auto 4.4 x10*3/uL (2.0-8.3); Neutrophils Percent Auto 65.1 % (45-73); Red Blood Count 4.46 X10*6/uL (4.20-5.50); Red Cell Distribution Width 17.6 % (11.0-16.0); White Blood Count 6.7 X10*3/uL (4.8-10.8)
[2024-01-16 15:08] LABS: Thyroid Stimulating Hormone 1.41 uIU/mL (0.32-4.0)
[2024-01-16 16:05] LABS: Platelet Count 269 X10*3/uL (160-400)
[2024-01-17 04:33] LABS: ~HepC Num1 0.12 S/CO (0.00-0.79); ~Hepatitis C Antibody Nonreactive (Nonreactive)
[2024-01-19 17:58] LABS: HIV RNA PCR Qn Copies Not Detected Copies/mL; HIV RNA PCR Qn Log Copies Not Detected Log cps/mL
== END 2024-01-16 09:45 | disposition home or self-care (01) ==
LOC: HO.CHCLDS 09:44
PROVIDERS: Visit Provider Student in an Organized Health Care Education/Training Program
DX: Z00.00 Encounter for general adult medical examination without abnormal findings (principal); L65.8 Other specified nonscarring hair loss
CPT/HCPCS: 36415; 84443; 85025; 86803; 87536; 87900

== ENCOUNTER 2024-02-01 09:11 | Outpatient (REF) | payer MEDICAID, SELFPAY ==
--- NOTE | ~2024-02-01 | MM_ITS ---
EXAMINATION: MM SCREENING DIGITAL BREAST TOMOSYNTHESIS, BILATERAL CLINICAL INFORMATION: Screening. Asymptomatic. COMPARISON: Mammography: This is a baseline mammogram. TECHNIQUE: Digital breast tomosynthesis is performed in both the craniocaudal and mediolateral oblique views along with computer-aided detection (CAD). Synthesized 2D images are generated from the tomosynthesis. FINDINGS: The breasts are heterogeneously dense, which may obscure small masses (ACR BI-RADS breast composition Category c). There are no significant masses, abnormal calcifications, or other abnormalities. MM/MM tomosynthesis screening BI IMPRESSION: No mammographic evidence of malignancy. ASSESSMENT: BI-RADS BI-RADS 1 - Negative RECOMMENDATION: Routine annual mammography screening. 1 year F/U This examination should not preclude the clinical evaluation of a suspicious palpable abnormality. This patient's information was entered into a reminder system with a target due date for their next mammogram.
== END 2024-02-01 09:12 | disposition home or self-care (01) ==
LOC: HO.MAMMO 09:11
PROVIDERS: PCP Student in an Organized Health Care Education/Training Program; Visit Provider Student in an Organized Health Care Education/Training Program
DX: Z12.31 Encounter for screening mammogram for malignant neoplasm of breast (principal)
CPT/HCPCS: 77063; 77067

== ENCOUNTER → 2024-02-01 09:15 | Outpatient (BNV) | payer MEDICAID, SELFPAY | PROVIDERS: PCP Student in an Organized Health Care Education/Training Program; Visit Provider Radiology Diagnostic Radiology | DX: Z12.31 Encounter for screening mammogram for malignant neoplasm of breast (principal) | CPT/HCPCS: 77063; 77067 ==

== ENCOUNTER 2024-02-05 11:27 | Outpatient (REF) | payer MEDICAID, SELFPAY ==
[2024-02-07 05:48] LABS: C. trachomatis RNA TMA NOT DETECTED (NOT DETECTED); Candida glabrata RNA NOT DETECTED (NOT DETECTED); Candida species RNA NOT DETECTED (NOT DETECTED); N. gonorrhoeae RNA TMA NOT DETECTED (NOT DETECTED); Trichomonas vaginalis RNA NOT DETECTED (NOT DETECTED)
[2024-02-12 04:18] LABS: HPV mRNA E6/E7 rflx Not Detected (Not Detected)
== END 2024-02-05 11:28 | disposition home or self-care (01) ==
LOC: HO.CHCLDS 11:27
PROVIDERS: Visit Provider Advanced Practice Midwife
DX: N89.8 Other specified noninflammatory disorders of vagina (principal); N91.5 Oligomenorrhea, unspecified
CPT/HCPCS: 36415; 81513; 84443; 87481; 87491; 87591; 87624; 87661; 88142

== ENCOUNTER 2024-04-04 13:41 | Outpatient (REF) | payer MEDICAID, SELFPAY ==
[2024-04-04 13:53] LABS: MANUAL DIFF FLAG NO
[2024-04-04 14:07] LABS: Basophils Absolute Auto 0.1 X10*3/uL (0.0-0.2); Basophils Percent Auto 0.7 % (0-2); Eosinophils Absolute Auto 0.3 X10*3/uL (0.0-0.4); Eosinophils Percent Auto 3.3 % (0-4); Hematocrit 30.5 % (37.0-47.0); Hemoglobin 10.4 g/dl (12.0-16.0); Imm Gran Abs Auto 0.03 X10*3/uL (0.00-0.03); Imm Gran Pct Auto 0.4 % (0.0-0.4); Lymphocytes Absolute Auto 1.6 X10*3/uL (1.2-4.9); Lymphocytes Percent Auto 21.7 % (20-40); Mean Corpuscular HGB Conc 34.1 g/dl (31.0-35.0); Mean Corpuscular Hemoglobin 23.7 pg (27.0-33.0); Mean Corpuscular Volume 69.6 fL (80.0-98.0); Monocytes Absolute Auto 0.6 X10*3/uL (0.1-1.2); Monocytes Percent Auto 7.4 % (2-11); Neutrophils Percent Auto 66.5 % (45-73); Platelet Count 251 X10*3/uL (160-400); Red Blood Count 4.38 X10*6/uL (4.20-5.50); White Blood Count 7.6 X10*3/uL (4.8-10.8)
[2024-04-04 14:28] LABS: Rheumatoid Factor 32.8 IU/mL (<15.0)
[2024-04-04 14:36] LABS: Alanine Aminotransferase 13 U/L (0-31); Albumin Level 4.5 g/dL (3.5-5.0); Alkaline Phosphatase 44 U/L (39-117); Anion Gap 10 (12-20); Aspartate Amino Transferase 18 U/L (5-31); Bilirubin Total 0.8 mg/dL (0.0-1.0); Blood Urea Nitrogen 11 mg/dL (9-16); C Reactive Protein < 0.04 mg/dL (< or = 0.50); Calcium 9.3 mg/dL (8.4-10.2); Carbon Dioxide 26 mmol/L (22-29); Chloride 106 mmol/L (96-108); Estimated Glomerular Filt Rate > 60; Glucose Random 99 mg/dL (60-115); Potassium 3.5 mmol/L (3.3-5.1); Sodium 138 mmol/L (135-145); Total Protein 7.8 g/dL (6.5-8.0)
[2024-04-04 14:45] LABS: Erythrocyte Sedimentation Rate 3 MM/HR (0-20)
[2024-04-07 16:38] LABS: Cyclic Citrullinated Peptide <16 UNITS
== END 2024-04-04 13:42 | disposition home or self-care (01) ==
LOC: HO.LAB 13:41
PROVIDERS: PCP Student in an Organized Health Care Education/Training Program; Visit Provider Nurse Practitioner Family
DX: M05.9 Rheumatoid arthritis with rheumatoid factor, unspecified (principal)
CPT/HCPCS: 36415; 80053; 85025; 85652; 86140; 86200; 86431

== ENCOUNTER 2024-04-09 09:25 | Outpatient (AMB) | payer MEDICAID, SELFPAY ==
[2024-04-09 09:29] VITALS: BP 104/62; PULSE 70; O2SAT 99; BMI 22.8
--- NOTE | 2024-04-09 09:29 | MHC.OFFVIS ---
Vital Signs 04/09/24 09:29 Height 5 ft 2 in Weight 124 lb 8.979 oz BMI 22.8 BP 104/62 Blood Pressure Location Rt brachial Position Sitting Pulse 70 Pulse Source Pulse Oximeter Pulse Oximetry (%) 99 Oxygen Delivery Method Room Air Intake Visit Reasons: +CCP, Beta Thal Anemia, Chronic Hep B. Intake Note: Patient last seen 09/18/23 by Darren, presents today for follow up and test results. Theater Projectionist Required: Yes Theater Projectionist Name: Ankit Pierce Information Interpreted: non-clinical & clinical Accompanied by: Child Allergies dust Allergy (Mild, Uncoded 04/09/24 09:37) Itchy Eyes pollen Allergy (Mild, Uncoded 04/09/24 09:37) Itchy Eyes HPI Comments Details: Ms. Barragan 37yoF presents for follow-up on seropositive RA (RF+ CCP+). She remains on Plaquenil 200 mg daily. Patient states she is feeling well today. She does get sciatic pain and fatigue when she works too hard. The pain is helped by OTC medications, tylenol or NSAIDs. She also expresses fatigue that is worrisome to her. She would like to stop the HCQ given she never had RA symptoms and watch to see what happens. She would also like to do labs for B12 and D. She follows with GI for chronic hepatitis-B. Follows with Hematology for microcytic anemia, beta thalassemia trait. --elevated B12 - 03/2023; 09/18/2023: Dimple Patient is a 37yoF who presents for follow-up on seropositive RA (RF+ CCP+). Last seen in January 2023. On Plaquenil 200 mg daily. Up-to-date with Ophthalmology exam, last visit was July 2022 and she has an upcoming appointment scheduled. Patient states she is feeling well today. She denies any joint pain or swelling. At last visit she was having some numbness in both arms and hands after lifting heavy boxes while moving. She states her numbness and tingling have resolved. She did not end up purchasing the cock-up splints. She denies any concerns today. She follows with GI for chronic hepatitis-B. Follows with Hematology for microcytic anemia, beta thalassemia trait. [facility], [facility] Medical History Long-term use of hydroxychloroquine Chronic hepatitis B Seropositive rheumatoid arthritis Surgical History No pertinent past surgical history Social History Household Members: Spouse and Children Housing: Apartment Are you a primary neonatal intensive care nurse to a significant other at home: No Do you presently have visiting nurse or other home services: No Alcohol intake: never Patient Tobacco Use Status: Never used Tobacco e-Cigarette/Vaping Use: Never Used service: No Current occupational status: unemployed Review of Systems Const All systems reviewed & are unremarkable except as noted in HPI and below Physical Exam Vital Signs: Last Vital Signs Pulse 70 04/09/24 09:29 BP 104/62 04/09/24 09:29 Pulse Ox 99 04/09/24 09:29 Oxygen Delivery Method Room Air 04/09/24 09:29 BMI result Body Mass Index 22.8 APPEARANCE: Patient in no acute distress EYES: no redness, eyelids normal EARS: External ear normal. NOSE/SINUS: Airflow through both nares, no nasal discharge, no bleeding THROAT: Oral mucosa moist, no ulcerations NECK: No thyromegaly or masses, no adenopathy, trachea midline. HEART: Regular rhythm, S1-S2 heard, no murmurs, rubs or gallops. LUNG: Clear to auscultation throughout bilaterally, respiratory rate regular and non-labored. EXTREMITIES: No edema, no calf tenderness, normal peripheral pulses. NEURO: Oriented and alert x3. No focal weakness. Gait normal. SKIN: No inflammatory or neoplastic lesions. Normal color and turgor JOINT EXAM:? Cervical Spine: Full range of motion without pain; no tenderness. Thoracic Spine:? No tenderness on palpation. Lumbar Spine:? Alignment normal.? Full range of motion without pain, no tenderness to palpation of the lumbar spine. Hands:? Normal pain-free range of motion without tenderness, swelling, increased warmth or erythema. Able to make a full fist and has a good automatic buffer strength. Wrists:? Normal pain-free range of motion without tenderness, swelling, increased warmth or erythema. Elbows: Normal pain-free range of motion without tenderness, swelling, increased warmth or erythema. Shoulders:?? LEFT: Full range of motion without pain. No tenderness, weakness, swelling, increased warmth or erythema. RIGHT: Full range of motion without pain. No tenderness, weakness, swelling, increased warmth or erythema. Knees:??LEFT: Normal pain-free range of motion without tenderness. RIGHT: Normal pain-free range of motion without tenderness. Ankles:? Normal pain-free range of motion without tenderness, swelling, increased warmth or erythema. Feet: Normal pain-free range of motion without tenderness, swelling, increased warmth or erythema Results Reviewed Results Reviewed: Laboratory Tests 04/04/24 13:53 WBC 7.6 RBC 4.38 Hgb 10.4 L Hct 30.5 L MCV 69.6 L MCH 23.7 L ESR 3 Creatinine 0.67 AST 18 ALT 13 C-Reactive Protein < 0.04 Total Protein 7.8 Albumin 4.5 Rheumatoid Factor 32.8 H Cycl Citrul Peptide IgG <16 Assessment & Plan Assessment & Plan (1) Seropositive rheumatoid arthritis: Comment: Plaquenil: November 2018-present Code(s): M05.9 - Rheumatoid arthritis with rheumatoid factor, unspecified Category: Medical (2) Chronic hepatitis B: Comment: Code(s): B18.1 - Chronic viral hepatitis B without delta-agent Category: Medical (3) Long-term use of hydroxychloroquine: Code(s): Z79.899 - Other termite treater helper (current) drug therapy Category: Medical (4) Beta thalassemia trait: Code(s): D56.3 - Thalassemia minor Category: Medical (5) Microcytic anemia: Code(s): D50.9 - Iron deficiency anemia, unspecified Category: Medical Plan #Seropositive RA (RF+ CCP+). Today, at this point we are agreeing to hold the HCQ and monitor for RA Symptoms. #Microcytic Anemia:--elevated B12 - 03/2023; Currently takes Cyanocobalamin 1000 mcg QD. I will order labs B12 and Vitamin D. I recommend she discuss the fatigue with Heme and see what her options are. I spent 20 minutes reviewing chart, evaluating patient and documenting. f/u 6 months Prior Assessment: Ms Barragan has been taking Plaquenil 200 mg daily for approximately 3 years for RA. When I review her medical records, oral history and diagnostics, I could not identify active RA disease. Rheumatology workup labs from 2018 shows weakly positive CCP at 27 and +RF 17.7, all else WNL including ESR/CRP which continues to be WNL over the years. Subsequent Xrays of hand. knees and elbows were unremarkable. Patient denies all symptoms of RA to include prolonged morning stiffness, joint tenderness, swelling and redness to the hands, feet, knees, elbow or shoulders. She denies ever having respiratory concerns, joint swelling or joint tenderness. She has had thumb pain which started when she was moving and carry large boxes. This was helped and resolved by PT. What she also described is sciatic pain which she experienced mainly at night while laying on her side. She stated that the pain started from her left buttock (mild tenderness) and travels down to the side of her left knee where it hurts more. Since she started taking the Plaquenil she did say it does not wake her up at night anymore. She does continue to experience fatigue in her legs when she stands up for longer periods of time but she has no other significant complaint. I have discussed with the patient that since she finds improvement for her sciatic nerve pain using Plaquenil then it is reasonable that she should continue, though she seem asymptomatic for RA. In addition, she does have +CCP from 2018, The Anti-CCP has a high specificity to RA. It is also ashley to continue to HCQ which could be modulating the immune system and delaying active onset. She also has chronic Hep B infection. If this were to become symptomatic, it is important to differentiate any HBV related arthropathy from that of RA. #Chronic hep B: Found to have chronic Hep B on screening labs and was previously cleared by ID to start DMARD therapy. ? Now following with GI. If in the future there is need to advance her Rheumatoid arthritis treatment to a biologic, she would require treatment to prevent acute hep B flare. #Donor Processor Use of HCQ/Anmeia: Sometimes the use of HCQ can cause blood dyscrasias. There has been a slight drop in her hemoglobin from 10.3 to 9.9 since last visit. Given that she has longstanding anemia we will continue to keep an eye on this. She does follow with Hematology. Additionally, she needs annual eye exam with the high school coordinator. Patient is up-to-date with Ophthalmology exams. Patient is up-to-date with eye exam Follow-up in 6 months with labs prior or sooner if needed. Orders: Orders Vitamin B12 Today D56.3 - Thalassemia minor, E55.9 - Vitamin D deficiency, unspecified, Z79.899 - Other retirement (current) drug therapy Vitamin D 25-OH (D2 and D3) Today D56.3 - Thalassemia minor, E55.9 - Vitamin D deficiency, unspecified, Z79.899 - Other retirement (current) drug therapy Coding Level of Care Code Est Pt Level 3 (43821) Complex EM visit Add On G2211 Diagnoses Seropositive rheumatoid arthritis M05.9 Chronic hepatitis B B18.1 Long-term use of hydroxychloroquine Z79.899 Beta thalassemia trait D56.3 Microcytic anemia D50.9
== END 2024-04-09 10:01 | disposition home or self-care (01) ==
PROVIDERS: PCP Student in an Organized Health Care Education/Training Program; Visit Provider Nurse Practitioner Family
DX: M05.79 Rheumatoid arthritis with rheumatoid factor of multiple sites without organ or systems involvement (principal); B18.1 Chronic viral hepatitis B without delta-agent; Z79.899 Other long term (current) drug therapy; D56.3 Thalassemia minor; D50.9 Iron deficiency anemia, unspecified
CPT/HCPCS: 99213; G2211

== ENCOUNTER → 2024-04-09 09:25 | Outpatient (BNVA) | payer MEDICAID, SELFPAY | PROVIDERS: PCP Student in an Organized Health Care Education/Training Program; Visit Provider Nurse Practitioner Family | DX: M05.9 Rheumatoid arthritis with rheumatoid factor, unspecified (principal); B18.1 Chronic viral hepatitis B without delta-agent; D56.3 Thalassemia minor; D50.9 Iron deficiency anemia, unspecified; Z79.899 Other long term (current) drug therapy | CPT/HCPCS: 99212 ==

== ENCOUNTER 2024-04-09 10:22 | Outpatient (REF) | payer MEDICAID, SELFPAY ==
[2024-04-09 14:27] LABS: Vitamin B12 666 pg/mL (200-900)
[2024-04-13 17:10] LABS: Vitamin D 25-OH, D2 <4 ng/mL; Vitamin D 25-OH, D3 13 ng/mL; Vitamin D 25-OH, Total 13 ng/mL (30-100)
== END 2024-04-09 10:23 | disposition home or self-care (01) ==
LOC: HO.10HDL 10:22
PROVIDERS: Visit Provider Nurse Practitioner Family
DX: D56.3 Thalassemia minor (principal); E55.9 Vitamin D deficiency, unspecified; Z79.899 Other long term (current) drug therapy
CPT/HCPCS: 36415; 82306; 82607; 99212

== ENCOUNTER 2024-05-12 10:50 | Outpatient (AMB) | payer MEDICAID, SELFPAY ==
[2024-05-12 11:04] VITALS: BP 98/47; PULSE 70; BMI 22.7
--- NOTE | 2024-05-12 11:04 | A.OFFVIS_ITS ---
Vital Signs 05/12/24 11:04 Height 5 ft 2 in Weight 124 lb BMI 22.7 BP 98/47 L Blood Pressure Location Lt brachial Position Sitting Pulse 70 Intake Visit Reasons: 6 month f/u Intake Note: Patient follow up chronic Hep B Patient cc: abdominal bloating with or with out eating at night time, denies any other GI issues. Safety Director Required: Yes Safety Director Name: Torsten [id number] Allergies dust Allergy (Mild, Uncoded 04/09/24 09:37) Itchy Eyes pollen Allergy (Mild, Uncoded 04/09/24 09:37) Itchy Eyes HPI HPI 6 month f/u: Details: 38 yr old f with hx of RA being seen for f/u for Hep B RECAP: she conts on plaquenil for RA Hep b labs positive, Hep d negative LFT normal she says she knew she had hep b from she does not drink alcohol LABS: 01/2022--LFt nml, HBV VL--7700, HBe Ag--neg, Hep C neg US: 12/04/22 -normal elastography, increased echogenicity -- INTERIM: discussed US with likely fatty liver but repeat was normal she denies abdominal pain no nausea or vomiting denies rectal bleeding, no melena she never got the rifaximin prescribed for bloating last time, still has bloating EXAM: GENERAL: The patient is well developed and nontoxic. VITAL SIGNS:see workflow HEENT: Nonicteric sclerae, PERRLA, EOMI. Oropharynx clear. Moist mucous membranes. Conjunctivae appear well perfused. No thyroid mass. CHEST: Chest wall is nontender. HEART: Regular rate and rhythm without murmurs. LUNGS: Clear to auscultation bilaterally. ABDOMEN: Soft, positive bowel sounds, nontender, no organomegaly.no flank tenderness SKIN: No rash, no excessive bruising, petechiae, or purpura. NEUROLOGIC: Cranial nerves II-XII intact without motor/sensory deficit. A/P: 1/ Chronic Hep B, e Ag neg, nml LFt -- immune tolerant phase. 2/ Chronic anemia, microcytosis, prob thalaseemia 3/ RA: On plaquenil and is controlling her disease right now PLAN: 1/recheck labs today, make sure not entering immune active phase 2/ As noted before---If she has to escalate RA treatment to biologics then she would need treatment to prevent acute hep B flare 3/ liver for monitoring --will get in 2024 4/ resent rifaximin, if no response then will try FODMAP diet [facility] Medical History (Updated 04/09/24 @ 09:54 [facility] Hypovitaminosis D Long-term use of hydroxychloroquine Chronic hepatitis B Seropositive rheumatoid arthritis Surgical History No pertinent past surgical history Social History Household Members: Spouse and Children Housing: Apartment Are you a primary personal carer to a significant other at home: No Do you presently have visiting nurse or other home services: No Alcohol intake: never Patient Tobacco Use Status: Never used Tobacco e-Cigarette/Vaping Use: Never Used service: No Current occupational status: unemployed Physical Exam Vital Signs: Last Vital Signs Pulse 70 05/12/24 11:04 BP 98/47 L 05/12/24 11:04 BMI result Body Mass Index 22.7 Assessment & Plan Assessment & Plan (1) Chronic hepatitis B: Comment: Code(s): B18.1 - Chronic viral hepatitis B without delta-agent Category: Medical Plan: see above Orders: Orders Hepatitis B Viral DNA Qn Today B18.1 - Chronic viral hepatitis B without delta- agent Comprehensive Met. Panel Today B18.1 - Chronic viral hepatitis B without delta- agent, K75.81 - Nonalcoholic steatohepatitis (CHENG) Hepatitis BE Antigen Today B18.1 - Chronic viral hepatitis B without delta- agent Complete Blood Count Auto Diff Today B18.1 - Chronic viral hepatitis B without delta-agent Hepatitis BE Antibody Today B18.1 - Chronic viral hepatitis B without delta- agent Hepatitis A,B,C Profile Today B18.1 - Chronic viral hepatitis B without delta- agent Medications: New rifaximin 550 mg PO TID 2 weeks 42 tabs 0RF Coding Level of Care Code Est Pt Level 3 (19008) Diagnoses Chronic hepatitis B B18.1
== END 2024-05-12 11:28 | disposition home or self-care (01) ==
PROVIDERS: PCP Student in an Organized Health Care Education/Training Program; Referring Provider Student in an Organized Health Care Education/Training Program; Visit Provider Internal Medicine Gastroenterology
DX: B18.1 Chronic viral hepatitis B without delta-agent (principal)
CPT/HCPCS: 99213

== ENCOUNTER 2024-05-12 10:50 | Outpatient (REF) | payer MEDICAID, SELFPAY ==
[2024-05-12 11:48] LABS: MANUAL DIFF FLAG NO
[2024-05-12 12:00] LABS: Basophils Percent Auto 0.7 % (0-2); Eosinophils Absolute Auto 0.1 X10*3/uL (0.0-0.4); Eosinophils Percent Auto 1.3 % (0-4); Hematocrit 31.9 % (37.0-47.0); Hemoglobin 10.5 g/dl (12.0-16.0); Imm Gran Abs Auto 0.01 X10*3/uL (0.00-0.03); Imm Gran Pct Auto 0.2 % (0.0-0.4); Lymphocytes Absolute Auto 1.1 X10*3/uL (1.2-4.9); Lymphocytes Percent Auto 20.2 % (20-40); Mean Corpuscular HGB Conc 32.9 g/dl (31.0-35.0); Mean Corpuscular Hemoglobin 23.4 pg (27.0-33.0); Monocytes Absolute Auto 0.4 X10*3/uL (0.1-1.2); Monocytes Percent Auto 7.3 % (2-11); Neutrophils Absolute Auto 3.8 x10*3/uL (2.0-8.3); Neutrophils Percent Auto 70.3 % (45-73); Platelet Count 236 X10*3/uL (160-400); Red Blood Count 4.49 X10*6/uL (4.20-5.50); Red Cell Distribution Width 16.8 % (11.0-16.0); White Blood Count 5.4 X10*3/uL (4.8-10.8)
[2024-05-12 12:31] LABS: Alanine Aminotransferase 18 U/L (0-31); Albumin Level 4.4 g/dL (3.5-5.0); Alkaline Phosphatase 47 U/L (39-117); Anion Gap 10 (12-20); Aspartate Amino Transferase 19 U/L (5-31); Bilirubin Total 0.7 mg/dL (0.0-1.0); Blood Urea Nitrogen 9 mg/dL (9-16); Calcium 8.9 mg/dL (8.4-10.2); Carbon Dioxide 29 mmol/L (22-29); Chloride 106 mmol/L (96-108); Estimated Glomerular Filt Rate > 60; Glucose Random 89 mg/dL (60-115); Potassium 4.1 mmol/L (3.3-5.1); Sodium 141 mmol/L (135-145); Total Protein 7.6 g/dL (6.5-8.0)
[2024-05-12 12:55] LABS: HBS Num1 0.23 mIU/mL (0-7.99); HBc Num1 5.88 S/CO (0.00-0.79); Hepatitis A Antibody IgM 0.37 Index (0-0.79); ~HepC Num1 0.09 S/CO (0.00-0.79); ~Hepatitis A Antibody IgM Nonreactive (Nonreactive); ~Hepatitis B Surface Antibody NONREACTIVE (Nonreactive); ~Hepatitis C Antibody Nonreactive (Nonreactive)
[2024-05-13 11:58] LABS: Hepatitis B Viral DNA Qn - cp 3.86 Log IU/mL (NOT DETECTED); Hepatitis B Viral DNA Qn-IU/mL 7250 IU/mL (NOT DETECTED)
[2024-05-13 12:01] LABS: HBc Num2 6.08 S/CO; HBc Num3 5.75 S/CO; Hepatitis B Core Antibody Reactive (Nonreactive)
[2024-05-14 19:39] LABS: Hepatitis B Core Antibody IgM NON-REACTIVE (NON-REACTIVE)
[2024-05-15 05:43] LABS: Hepatitis BE Antibody REACTIVE (NON-REACTIVE); Hepatitis BE Antigen NON-REACTIVE (NON-REACTIVE)
== END 2024-05-12 10:51 | disposition home or self-care (01) ==
LOC: HO.LAB 10:50
PROVIDERS: PCP Student in an Organized Health Care Education/Training Program; Visit Provider Internal Medicine Gastroenterology
DX: B18.1 Chronic viral hepatitis B without delta-agent (principal); K75.81 Nonalcoholic steatohepatitis (NASH); R14.0 Abdominal distension (gaseous)
CPT/HCPCS: 36415; 80053; 85025; 86704; 86705; 86706; 86707; 86709; 86803; 87340; 87350; 87517; 99212

== ENCOUNTER 2024-06-10 13:09 | Outpatient (REF) | payer MEDICAID, SELFPAY | END 2024-06-10 13:10 | disposition home or self-care (01) | LOC: HO.CHCLNP 13:09 | PROVIDERS: Visit Provider Internal Medicine | DX: J02.9 Acute pharyngitis, unspecified (principal) | CPT/HCPCS: 36415; 87255 ==

== ENCOUNTER 2024-07-02 10:59 | Outpatient (REF) | payer MEDICAID, SELFPAY ==
[2024-07-02 15:20] LABS: Vitamin D 25-OH Total 31.5 ng/mL (>30)
== END 2024-07-02 11:00 | disposition home or self-care (01) ==
LOC: HO.CHCLDS 10:59
PROVIDERS: Visit Provider Student in an Organized Health Care Education/Training Program
DX: E55.9 Vitamin D deficiency, unspecified (principal)
CPT/HCPCS: 36415; 82306

== ENCOUNTER 2024-08-27 07:09 | Outpatient (AMB) | payer MEDICAID, SELFPAY ==
--- NOTE | 2024-08-27 07:26 | A.OFFVIS_ITS ---
Vital Signs 08/27/24 07:37 Height 5 ft 2 in Weight 128 lb 8.472 oz BMI 23.5 BP 90/54 L Blood Pressure Location Lt brachial Position Sitting Pulse 78 Pulse Source Pulse Oximeter Pulse Oximetry (%) 98 Oxygen Delivery Method Room Air Intake Visit Reasons: RT LEG PAIN Intake Note: Patient presents for right leg pain. Mechanic General Operational Test Required: Yes Mechanic General Operational Test Language: Persian Mechanic General Operational Test Services: Mechanic General Operational Test Present Mechanic General Operational Test Name: Ankit DOBBINS Information Interpreted: non-clinical & clinical Flotation Tender: Flotation Tender Present Allergies ibuprofen Allergy (Severe, Verified 08/27/24 07:34) Unknown dust Allergy (Mild, Uncoded 04/09/24 09:37) Itchy Eyes pollen Allergy (Mild, Uncoded 04/09/24 09:37) Itchy Eyes Medication List - Last Reconciled 08/27/24 by Ada Bennett MD cetirizine (Allergy Relief (cetirizine)) 10 mg PO QAM PRN cholecalciferol (vitamin D3) 50 mcg PO DAILY cyanocobalamin (vitamin B-12) (Vitamin B-12) 1,000 mcg PO DAILY folic acid 1 mg PO DAILY HPI Comments Details: Patient is a 37-year-old female with chronic hepatitis-B who is following up for seropositive rheumatoid arthritis (RF and CCP positive) Interval History: Last seen 04/09/2024 with Dimple Banks. At that time the discussion about continuing versus stopping Plaquenil and the decision was made to hold Plaquenil. Today patient reports that she has been well since her last visit. Has new complaints of right lower leg pain. Right lower leg pain: She states that she gets pain in her right lower leg after sitting for prolonged period of time or standing for prolonged period of time. The pain starts in the back of the knee and we will sometimes radiate down to the ankle or even up from the knee to the low back. This pain will improve with rest. Sometimes she does note that the pain is worse at the end of the day and makes it difficult for her to get comfortable to sleep. 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 Patient denies prolonged morning stiffness, swelling to the hands or feet. Rheumatologic History: Patient was 1st seen back in 2019. At that time she came with a diagnosis of rheumatoid arthritis and was started on Plaquenil 200 mg daily. She had been taking Plaquenil 200 mg daily for approximately 3 years for RA. However on review of the medical records there was no evidence of active RA disease. Rheumatology labs from 2018 showed weakly positive CCP at 27 and RF 17.7 with all other labs within normal limits including ESR/CRP. Subsequent x- rays of hands, knees and elbows were unremarkable and patient continues to deny any symptoms of prolonged morning stiffness, joint tenderness, swelling to hands, feet, knees, elbows shoulders. Plaquenil stopped 04/09/2024 Current Rheumatology Medication(s): [facility] Medical History (Updated 08/27/24 @ 08:42 by Ada Bennett MD) Knee pain Hypovitaminosis D Chronic hepatitis B Seropositive rheumatoid arthritis Surgical History No pertinent past surgical history Social History Household Members: Spouse and Children Housing: Apartment Are you a primary child care specialist to a significant other at home: No Do you presently have visiting nurse or other home services: No Alcohol intake: never Patient Tobacco Use Status: Never used Tobacco e-Cigarette/Vaping Use: Never Used service: No Current occupational status: unemployed Review of Systems Const Details: Review of Systems Constitutional: Denies fever, chills, weight loss ENT: Denies vision changes, eye pain or eye redness, dental caries, dry mouth GI: Denies nausea, vomiting, diarrhea, abdominal pain, change in BM Pulm: Denies SOB, GABRIEL, hemoptysis, wheezing Cards: Denies chest pain, palpitations Skin: Denies Raynaud's, rash, nail changes, photosensitivity, COURSE DEVELOPER: Denies headaches, weakness, paresthesias, recurrent falls MSK: as per HPI All other systems reviewed and are unremarkable except noted above Physical Exam Vital Signs: Last Vital Signs Pulse 78 08/27/24 07:37 BP 90/54 L 08/27/24 07:37 Pulse Ox 98 08/27/24 07:37 Oxygen Delivery Method Room Air 08/27/24 07:37 BMI result Body Mass Index 23.5 Physical Examination Patient well appearing and in no apparent painful distress Able to rise from chair without support. ?Gait normal. Constitutional Mucous membranes pink and moist patient alert and cooperative HEENT Conjunctiva and sclera clear. ?Pupils equal round and reactive to light. ?No lymphadenopathy. ?Normal dentition. Respiratory System Normal respiratory effort and able to speak in complete sentences. ?Clear to au scultation bilaterally. ?No crackles, rales, rhonchi, wheezes heard. Cardiac System Regular rate and rhythm. ?S1 and S2 heard no murmurs. ?Radial pulses intact bilaterally MSK No deformity, swelling, abnormalities noted to bilateral hands. ?No evidence of synovitis. ?Able to move all joints with full range of motion, without limitation. Hands:.??Normal pain-free range of motion without tenderness, swelling, increased warmth or erythema. 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 Wrists: Normal pain-free range of motion without tenderness, swelling, increased warmth or erythema. Elbows: Full range of motion without pain. No tenderness, weakness, swelling, increased warmth or erythema. Shoulders: Full range of motion without pain. No tenderness, weakness, swelling, increased warmth or erythema. Hips: Full range of motion without pain. Hip bursa:.??No tenderness. Knees:.???Normal pain-free range of motion without tenderness, swelling, increased warmth or erythema.?No effusion or crepitations Ankles:.??Normal pain-free range of motion without tenderness, swelling, increased warmth or erythema. Feet:.??Normal pain-free range of motion without tenderness, swelling, increased warmth or erythema. Tender points:??No tenderness to digital palpation at the occiput, trapezius, second rib, lateral epicondyle, knees, greater trochanter bilaterally, and left gluteal. Negative straight leg raise Results Reviewed Results Reviewed: Laboratory Tests 04/04/24 04/09/24 05/12/24 13:53 10:25 11:46 Sodium 141 Potassium 4.1 Chloride 106 Carbon Dioxide 29 BUN 9 Creatinine 0.64 Total Bilirubin 0.7 AST 19 ALT 18 Alkaline Phosphatase 47 C-Reactive Protein < 0.04 25-OH Vitamin D Total 13 L Rheumatoid Factor 32.8 H Cycl Citrul Peptide IgG <16 07/02/24 11:00 Sodium Potassium Chloride Carbon Dioxide BUN Creatinine Total Bilirubin AST ALT Alkaline Phosphatase C-Reactive Protein 25-OH Vitamin D Total 31.5 Rheumatoid Factor Cycl Citrul Peptide IgG Assessment & Plan Assessment & Plan (1) Low back pain: Code(s): M54.5 - Low back pain Category: Medical Qualifiers: Chronicity: chronic Back pain laterality: right Sciatica presence: without sciatica Qualified Code(s): M54.50 - Low back pain, unspecified; G89.29 - Other chronic pain Plan: #Low back pain/Knee pain Her pain sounds mechanical at this time. We will recommend physical therapy. Ordered placed. Meloxicam 7.5 mg p.r.n. for pain. Compression stockings while patient is on her feet all day. We will check x-rays of her back and also her knees. (2) Seropositive rheumatoid arthritis: Comment: Plaquenil: November 2018-April 2024 Code(s): M05.9 - Rheumatoid arthritis with rheumatoid factor, unspecified Category: Medical Plan: #RF positive Patient is RF positive without any signs or symptoms concerning for rheumatoid arthritis. She has been off her Plaquenil since April and has not had any prolonged morning stiffness or pain or swelling to her hands. We will continue to monitor. Plan I spent 25 minutes reviewing the record and labs, seeing the patient, discussing the treatment plan and documenting in the medical record ? For next visit: * Review if conservative management of her pain Orders: Orders XR lumbar spine 4V min Today M25.569 - Pain in unspecified knee, M54.5 - Low back pain XR knee LT 3V Today M25.569 - Pain in unspecified knee, M54.5 - Low back pain PT Evaluation and Treatment Today M25.569 - Pain in unspecified knee, M54.5 - Low back pain XR knee RT 3V Today M25.569 - Pain in unspecified knee, M54.5 - Low back pain Medications: New meloxicam 7.5 mg PO DAILY 60 days PRN 30 tabs 0RF pain Coding Level of Care Code Est Pt Level 3 (20274) Diagnoses Chronic right-sided low back pain without sciatica M54.50; G89.29 Chronicity: chronic Back pain laterality: right Sciatica presence: without sciatica Seropositive rheumatoid arthritis M05.9
[2024-08-27 07:37] VITALS: BP 90/54; PULSE 78; O2SAT 98; BMI 23.5
== END 2024-08-27 08:20 | disposition home or self-care (01) ==
PROVIDERS: PCP Student in an Organized Health Care Education/Training Program; Visit Provider Student in an Organized Health Care Education/Training Program
DX: M54.50 Low back pain, unspecified (principal); G89.29 Other chronic pain; M05.79 Rheumatoid arthritis with rheumatoid factor of multiple sites without organ or systems involvement
CPT/HCPCS: 99214

== ENCOUNTER 2024-08-27 07:09 | Outpatient (REF) | payer MEDICAID, SELFPAY | END 2024-08-27 07:10 | disposition home or self-care (01) | LOC: HO.XRAY 07:09 | PROVIDERS: PCP Student in an Organized Health Care Education/Training Program; Visit Provider Student in an Organized Health Care Education/Training Program | DX: M05.9 Rheumatoid arthritis with rheumatoid factor, unspecified (principal); M54.50 Low back pain, unspecified; G89.29 Other chronic pain; M79.604 Pain in right leg; M25.569 Pain in unspecified knee | CPT/HCPCS: 72110; 73562; 99212 ==

== ENCOUNTER 2024-09-15 11:38 | Outpatient (AMB) | payer MEDICAID, SELFPAY ==
--- NOTE | 2024-09-15 11:39 | A.OFFVIS_ITS ---
Vital Signs 09/15/24 11:41 Height 5 ft 2 in Weight 130 lb 1.164 oz BMI 23.8 BP 110/51 L Blood Pressure Location Lt brachial Position Sitting Pulse 79 Intake Visit Reasons: 4 month follow up Intake Note: Shahab presents in the office as a 4 month follow up. CC: She states that she is not having any concerns today. Allergies ibuprofen Allergy (Severe, Verified 09/15/24 11:41) Unknown dust Allergy (Mild, Uncoded 09/15/24 11:41) Itchy Eyes pollen Allergy (Mild, Uncoded 09/15/24 11:41) Itchy Eyes HPI HPI 4 month follow up: Details: 38 yr old f with hx of RA being seen for f/u for Hep B RECAP: she conts on plaquenil for RA Hep b labs positive, Hep d negative LFT normal she says she knew she had hep b from she does not drink alcohol LABS: 01/2022--LFt nml, HBV VL--7700, HBe Ag--neg, Hep C neg US: 12/04/22 -normal elastography, increased echogenicity -- INTERIM: she denies abdominal pain no nausea or vomiting denies rectal bleeding, no melena joints are playing up some times EXAM: GENERAL: The patient is well developed and nontoxic. VITAL SIGNS:see workflow HEENT: Nonicteric sclerae, PERRLA, EOMI. Oropharynx clear. Moist mucous membranes. Conjunctivae appear well perfused. No thyroid mass. CHEST: Chest wall is nontender. HEART: Regular rate and rhythm without murmurs. LUNGS: Clear to auscultation bilaterally. ABDOMEN: Soft, positive bowel sounds, nontender, no organomegaly.no flank tenderness SKIN: No rash, no excessive bruising, petechiae, or purpura. NEUROLOGIC: Cranial nerves II-XII intact without motor/sensory deficit. A/P: 1/ Chronic Hep B, e Ag neg, nml LFt -- immune tolerant phase. 2/ Chronic anemia, microcytosis, prob thalaseemia 3/ RA: On plaquenil PLAN: 1/recheck labs today, make sure not entering immune active phase 2/ As noted before---If she has to escalate RA treatment to biologics then she would need treatment to prevent acute hep B flare 3/ US liver for monitoring -- 4/ check vitamin levels PFSH Medical History Knee pain Hypovitaminosis D Chronic hepatitis B Seropositive rheumatoid arthritis Surgical History No pertinent past surgical history Social History Household Members: Spouse and Children Housing: Apartment Are you a primary manager medicare to a significant other at home: No Do you presently have visiting nurse or other home services: No Alcohol intake: never Patient Tobacco Use Status: Never used Tobacco e-Cigarette/Vaping Use: Never Used service: No Current occupational status: unemployed Physical Exam Vital Signs: Last Vital Signs Pulse 79 09/15/24 11:41 BP 110/51 L 09/15/24 11:41 BMI result Body Mass Index 23.8 Assessment & Plan Assessment & Plan (1) Chronic hepatitis B: Comment: Code(s): B18.1 - Chronic viral hepatitis B without delta-agent Category: Medical Plan: see above Orders: Orders US abdomen dockery w elastography Today K74.60 - Unspecified cirrhosis of liver, K75.81 - Nonalcoholic steatohepatitis (CHENG) Complete Blood Count Auto Diff Today B18.1 - Chronic viral hepatitis B without delta-agent Comprehensive Met. Panel Today B18.1 - Chronic viral hepatitis B without delta- agent, K75.81 - Nonalcoholic steatohepatitis (CHENG) C Reactive Protein Today B18.1 - Chronic viral hepatitis B without delta-agent Vitamin A Today B18.1 - Chronic viral hepatitis B without delta-agent Vitamin B1 Today B18.1 - Chronic viral hepatitis B without delta-agent Vitamin C Today B18.1 - Chronic viral hepatitis B without delta-agent Vitamin E Today B18.1 - Chronic viral hepatitis B without delta-agent Vitamin K1 Today B18.1 - Chronic viral hepatitis B without delta-agent Hepatitis BE Antibody Today B18.1 - Chronic viral hepatitis B without delta- agent Hepatitis B Core Antibody Today B18.1 - Chronic viral hepatitis B without delta-agent Vitamin B12 and Folate Today B18.1 - Chronic viral hepatitis B without delta- agent Vitamin B3 (Niacin) Today B18.1 - Chronic viral hepatitis B without delta-agent Vitamin B5 (Pantothenic Acid) Today B18.1 - Chronic viral hepatitis B without delta-agent Vitamin B6 Today B18.1 - Chronic viral hepatitis B without delta-agent Vitamin D 25-OH Total Today B18.1 - Chronic viral hepatitis B without delta- agent Zinc Today B18.1 - Chronic viral hepatitis B without delta-agent Ferritin Today B18.1 - Chronic viral hepatitis B without delta-agent Hepatitis B Viral DNA Qn Today B18.1 - Chronic viral hepatitis B without delta- agent Hepatitis BE Antigen Today B18.1 - Chronic viral hepatitis B without delta- agent Coding Level of Care Code Est Pt Level 4 (87481) Diagnoses Chronic hepatitis B B18.1
[2024-09-15 11:41] VITALS: BP 110/51; PULSE 79; BMI 23.8
== END 2024-09-15 12:47 | disposition home or self-care (01) ==
PROVIDERS: PCP Student in an Organized Health Care Education/Training Program; Visit Provider Internal Medicine Gastroenterology
DX: B18.1 Chronic viral hepatitis B without delta-agent (principal)
CPT/HCPCS: 99214

== ENCOUNTER 2024-09-15 11:38 | Outpatient (REF) | payer MEDICAID, SELFPAY ==
[2024-09-15 13:09] LABS: MANUAL DIFF FLAG NO
[2024-09-15 13:42] LABS: Basophils Percent Auto 0.7 % (0-2); Eosinophils Absolute Auto 0.2 X10*3/uL (0.0-0.4); Hematocrit 31.5 % (37.0-47.0); Hemoglobin 10.7 g/dl (12.0-16.0); Imm Gran Abs Auto 0.02 X10*3/uL (0.00-0.03); Imm Gran Pct Auto 0.4 % (0.0-0.4); Lymphocytes Absolute Auto 1.2 X10*3/uL (1.2-4.9); Lymphocytes Percent Auto 20.3 % (20-40); Mean Corpuscular Hemoglobin 23.9 pg (27.0-33.0); Mean Corpuscular Volume 70.5 fL (80.0-98.0); Monocytes Absolute Auto 0.5 X10*3/uL (0.1-1.2); Monocytes Percent Auto 7.9 % (2-11); Neutrophils Absolute Auto 3.8 x10*3/uL (2.0-8.3); Neutrophils Percent Auto 67.7 % (45-73); Platelet Count 225 X10*3/uL (160-400); Red Blood Count 4.47 X10*6/uL (4.20-5.50); Red Cell Distribution Width 17.2 % (11.0-16.0); White Blood Count 5.7 X10*3/uL (4.8-10.8)
[2024-09-15 14:01] LABS: Alanine Aminotransferase 22 U/L (0-31); Albumin Level 4.5 g/dL (3.5-5.0); Alkaline Phosphatase 43 U/L (39-117); Anion Gap 10 (12-20); Aspartate Amino Transferase 21 U/L (5-31); Bilirubin Total 0.9 mg/dL (0.0-1.0); Blood Urea Nitrogen 9 mg/dL (9-16); C Reactive Protein < 0.04 mg/dL (< or = 0.50); Calcium 9.2 mg/dL (8.4-10.2); Carbon Dioxide 24 mmol/L (22-29); Chloride 108 mmol/L (96-108); Estimated Glomerular Filt Rate > 60; Glucose Random 86 mg/dL (60-115); Potassium 4.2 mmol/L (3.3-5.1); Sodium 138 mmol/L (135-145); Total Protein 7.7 g/dL (6.5-8.0)
[2024-09-15 14:17] LABS: Ferritin 157 ng/mL (10-250); Vitamin D 25-OH Total 28.1 ng/mL (>30)
[2024-09-15 14:30] LABS: Folate 16.8 ng/mL (> or = 4.0); Vitamin B12 662 pg/mL (200-900)
[2024-09-16 08:21] LABS: HBc Num1 8.05 S/CO (0.00-0.79)
[2024-09-16 09:32] LABS: HBc Num3 7.93 S/CO; Hepatitis B Core Antibody Reactive (Nonreactive)
[2024-09-16 13:39] LABS: Hepatitis B Viral DNA Qn - cp 3.86 Log IU/mL (NOT DETECTED); Hepatitis B Viral DNA Qn-IU/mL 7170 IU/mL (NOT DETECTED)
[2024-09-17 18:24] LABS: Zinc 64 mcg/dL (60-130)
[2024-09-18 00:49] LABS: Hepatitis BE Antibody REACTIVE (NON-REACTIVE); Hepatitis BE Antigen NON-REACTIVE (NON-REACTIVE)
[2024-09-18 00:53] LABS: Hepatitis B Core Antibody IgM NON-REACTIVE (NON-REACTIVE)
[2024-09-19 11:28] LABS: Vitamin A 33 mcg/dL (38-98)
[2024-09-19 13:09] LABS: Vitamin C 1.1 mg/dL (0.3-2.7)
[2024-09-19 16:43] LABS: Vitamin B1 27 nmol/L (8-30); Vitamin B6 11.9 ng/mL (2.1-21.7)
[2024-09-19 18:58] LABS: Alpha-Tocopherol 6.5 mg/L (5.7-19.9); Beta-Gamma Tocopherol <1.0 mg/L (<=4.3)
[2024-09-19 21:07] LABS: Vitamin K1 742 pg/mL (130-1500)
[2024-09-20 15:43] LABS: Nicotinamide <20 ng/mL (see note); Vit B3 - Nicotinic Acid <20 ng/mL (see note); Vitamin B5 (Pantothenic Acid) <=40 ng/mL (<275)
== END 2024-09-15 11:39 | disposition home or self-care (01) ==
LOC: HO.LAB 11:38
PROVIDERS: PCP Student in an Organized Health Care Education/Training Program; Visit Provider Internal Medicine Gastroenterology
DX: K74.60 Unspecified cirrhosis of liver (principal); B18.1 Chronic viral hepatitis B without delta-agent; K75.81 Nonalcoholic steatohepatitis (NASH)
CPT/HCPCS: 36415; 80053; 82180; 82306; 82607; 82728; 82746; 84207; 84425; 84446; 84590; 84591; 84597; 84630; 85025; 86140; 86704; 86705; 86707; 87350; 87517; 99212

== ENCOUNTER 2024-10-27 08:08 | Outpatient (REF) | payer MEDICAID, SELFPAY | END 2024-10-27 08:09 | disposition home or self-care (01) | LOC: HO.US 08:08 | PROVIDERS: PCP Student in an Organized Health Care Education/Training Program; Visit Provider Internal Medicine Gastroenterology | DX: K75.81 Nonalcoholic steatohepatitis (NASH) (principal); K74.60 Unspecified cirrhosis of liver | CPT/HCPCS: 76705; 76981 ==

== ENCOUNTER → 2024-10-27 08:10 | Outpatient (BNV) | payer MEDICAID, SELFPAY | PROVIDERS: PCP Student in an Organized Health Care Education/Training Program; Visit Provider Radiology Diagnostic Radiology | DX: K75.81 Nonalcoholic steatohepatitis (NASH) (principal) | CPT/HCPCS: 76705 ==

== ENCOUNTER 2024-11-03 16:58 | Outpatient (RCR) | payer MEDICAID, SELFPAY ==
--- NOTE | 2024-09-19 13:10 | MHC.PT.EP ---
[facility] [place] Office [place] Office [place] Office [address] [phone] F: [phone] F: [phone] F: [phone] F: [phone] Physical Therapy Plan of Care Date of Evaluation: 09/18/24 Date of Surgery: Diagnosis: Knee pain (MD Dx) PT diagnosis is bilateral knee instability and bilateral sciatica (R worse than L) (PT Dx) RS Assessment: Shahab is a 38 yo Tajik speaking female who was referred by Ada Bennett MD of Rheumatology Clinic for Dx of bilateral knee pain. PT diagnosis is bilateral knee instability and bilateral sciatica (R worse than L). Impairments include painful and limited lumbar ROM, positive SLR, increased lateral trunk sway during gait, and weakness of glutes and quads resulting in her inability to run, stand, squat, or sit for long periods of time. 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 Pt will benefit from skilled PT to address impairments and meet their goals. Frequency and Duration: The patient will be seen 1-2x/week for 4 weeks Short Term Goals: 1 weeks Patient will be able to perform HEP to independently manage condition. Patient will be able to demonstrate proper squat form while lifting from the ground to decrease pain in low back. Nursing Home Goals: 4 weeks Patient will increase lumbar flexion ROM to 100 deg to be able to pickle cutter her kids without limitation. Patient will increase glute strength to 4/5 B to be able to stand for 20 minutes at a time without limitation. Treatment Plan: Modalities to reduce pain, spasms and effusion. Manual therapy to restore motion and function. Therapeutic exercise to improve strength and flexibility. Neuromuscular re-education for posture and balance. Therapeutic activities to return to functional activities of daily living. Electronically signed by: Kriss Coles, PT, DPT Please sign and return to therapist. Thank you for your referral.
--- NOTE | 2024-12-10 13:04 | MHC.PT.DC ---
[facility] [place] Office [place] Office [place] Office [address] [phone] F: [phone] F: [phone] F: [phone] F: [phone] Physical Therapy Discharge Report Diagnosis: Knee pain (MD Dx) PT diagnosis is bilateral knee instability and bilateral sciatica (R worse than L) (PT Dx) RS Date of Surgery: Date of Evaluation: 09/18/24 Date of Discharge: 12/10/24 Treatments to Date: 6 Cancellations to Date: 2 No Shows to Date: 0 Discharge Status: Independent with HEP Patient Elected to Stop Discharge Summary: Shahab was last treated in PT on 11/03/24, the assessment on that date reads, pt continued w/ strengthening program to daryl. She reported no increase in pain. Continue w/ plan. She cancelled her remaining PT visits after this session and is therefore discharged from PT at this time. Electronically signed by: Kriss Coles, PT, DPT Please sign and return to therapist. Thank you for your referral.
== END 2024-12-10 13:05 | disposition home or self-care (01) ==
LOC: HO.PT 16:58
PROVIDERS: PCP Student in an Organized Health Care Education/Training Program; Visit Provider Student in an Organized Health Care Education/Training Program
DX: M54.50 Low back pain, unspecified (principal); M25.561 Pain in right knee; M25.562 Pain in left knee
CPT/HCPCS: 97110; 97112; 97140; 97161; 97530; 97535

== ENCOUNTER 2024-11-27 16:11 | Outpatient (AMB) | payer MEDICAID, SELFPAY ==
--- NOTE | 2024-11-27 16:13 | A.OFFVIS_ITS ---
Vital Signs 11/27/24 16:26 Height 5 ft 2 in Weight 124 lb 12.506 oz BMI 22.8 BP 100/58 L Blood Pressure Location Lt brachial Position Sitting Pulse 77 Pulse Source Pulse Oximeter Pulse Oximetry (%) 98 Oxygen Delivery Method Room Air Intake Visit Reasons: follow up Intake Note: Patient presents for follow up. Diaper Machine Tender Required: Yes Diaper Machine Tender Language: British Diaper Machine Tender Services: Diaper Machine Tender Offered & Declined Diaper Machine Tender Name: Ankit Information Interpreted: non-clinical & clinical Svp Of Digital: Svp Of Digital Present (Ankit) Accompanied by: Diaper Machine Tender Allergies ibuprofen Allergy (Severe, Verified 11/27/24 16:18) Unknown almond Allergy (Severe, Uncoded 11/27/24 16:20) Swelling dust Allergy (Mild, Uncoded 09/15/24 11:41) Itchy Eyes pollen Allergy (Mild, Uncoded 09/15/24 11:41) Itchy Eyes Medication List - Last Reconciled 11/27/24 by Ada Bennett MD cetirizine (Allergy Relief (cetirizine)) 10 mg PO QAM PRN cholecalciferol (vitamin D3) (Vitamin D3) 50 mcg PO DAILY cyanocobalamin (vitamin B-12) (Vitamin B-12) 1,000 mcg PO DAILY folic acid 1 mg PO DAILY meloxicam 7.5 mg PO DAILY PRN multivitamin 1 tab PO DAILY oxybutynin chloride ER 5 mg PO DAILY HPI Comments Details: Patient is a 37-year-old female with chronic hepatitis-B who is following up for seropositive rheumatoid arthritis (RF and CCP positive) Interval History: Patient last seen 08/27/2024 with me. At that time she was off Plaquenil for several months without any worsening joint pain or stiffness to her hands. She was complaining of low back/knee pain at that time which sounded mechanical and I recommended physical therapy an order was placed. I also gave her meloxicam 7.5 mg p.r.n. for pain. Today, Patient remains off the plaquenil Meloxicam 7.5mg helped Also PT helped When the cold arrived the pain returned to the back of her leg Rheumatologic History: Patient was 1st seen back in 2019. At that time she came with a diagnosis of rheumatoid arthritis and was started on Plaquenil 200 mg daily. She had been taking Plaquenil 200 mg daily for approximately 3 years for RA. However on review of the medical records there was no evidence of active RA disease. Rheumatology labs from 2018 showed weakly positive CCP at 27 and RF 17.7 with all other labs within normal limits including ESR/CRP. Subsequent x- rays of hands, knees and elbows were unremarkable and patient continues to deny any symptoms of prolonged morning stiffness, joint tenderness, swelling to hands, feet, knees, elbows shoulders. Plaquenil stopped 04/09/2024 Current Rheumatology Medication(s): Meloxicam 7.5 mg p.r.n. [facility] Medical History Knee pain Hypovitaminosis D Chronic hepatitis B Seropositive rheumatoid arthritis Surgical History No pertinent past surgical history Social History Household Members: Spouse and Children Housing: Apartment Are you a primary care services manager to a significant other at home: No Do you presently have visiting nurse or other home services: No Alcohol intake: never Patient Tobacco Use Status: Never used Tobacco e-Cigarette/Vaping Use: Never Used service: No Current occupational status: unemployed Review of Systems Const Details: Review of Systems Constitutional: Denies fever, chills, weight loss ENT: Denies vision changes, eye pain or eye redness, dental caries, dry mouth GI: Denies nausea, vomiting, diarrhea, abdominal pain, change in BM Pulm: Denies SOB, GABRIEL, hemoptysis, wheezing Cards: Denies chest pain, palpitations Skin: Denies Raynaud's, rash, nail changes, photosensitivity, METAL HANGING 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 Well appearing and in no apparent painful distress HEENT Conjunctiva and sclera clear. ?Pupils equal round and reactive to light. ?No lymphadenopathy. ? CHEST/RESPIRATORY SYSTEM Normal respiratory effort and able to speak in complete sentences. ?Clear to auscultation bilaterally. ?No crackles, rales, rhonchi, wheezes heard. CARDIAC SYSTEM Regular rate and rhythm. ?S1 and S2 heard no murmurs. ?Radial pulses intact bilaterally MSK Hands: ?Good ladle filler strength bilaterally. No deformities noted. ?No synovitis noted to the MCPs, PIPs or DIPs. ?No tenderness to palpation of these joints. Wrists: ?Full range of motion at the wrists without pain. ?No tenderness to palpation or synovitis noted to the wrists. Elbows: Full range of motion without pain. No tenderness, weakness, swelling, increased warmth or erythema. Shoulders: Full range of motion without pain. No tenderness, weakness, swelling, increased warmth or erythema. Hips: Full range of motion without pain. Hip bursa: No tenderness to palpation Knees: ?Full range of motion. ?No tenderness, swelling, increased warmth or erythema.?No effusion or crepitations Ankles: Full range of motion. ?No tenderness, swelling, increased warmth or erythema.? Feet: ?Negative squeeze test. ?No tenderness to palpation or swelling of the MTPs. Tender points:?No tenderness to palpation of the bilateral trapezius, supraspinatus, greater trochanters, anterior costochondral junctions, bilateral gluteal areas, bilateral suboccipital muscle insertions SKIN Skin intact without rashes. Results Reviewed Results Reviewed: Laboratory Tests 04/04/24 04/09/24 05/12/24 13:53 10:25 11:46 Sodium 141 Potassium 4.1 Chloride 106 Carbon Dioxide 29 BUN 9 Creatinine 0.64 Total Bilirubin 0.7 AST 19 ALT 18 Alkaline Phosphatase 47 C-Reactive Protein < 0.04 25-OH Vitamin D Total 13 L Rheumatoid Factor 32.8 H Cycl Citrul Peptide IgG <16 07/02/24 11:00 Sodium Potassium Chloride Carbon Dioxide BUN Creatinine Total Bilirubin AST ALT Alkaline Phosphatase C-Reactive Protein 25-OH Vitamin D Total 31.5 Rheumatoid Factor Cycl Citrul Peptide IgG Assessment & Plan Assessment & Plan (1) Low back pain: Code(s): M54.5 - Low back pain Category: Medical Qualifiers: Chronicity: chronic Back pain laterality: right Sciatica presence: without sciatica Qualified Code(s): M54.50 - Low back pain, unspecified; G89.29 - Other chronic pain Plan: #Low back pain/Knee pain Patient's pain responded well to meloxicam p.r.n. and physical therapy Does report sometimes that she feels a swelling in the back of her knee which could be related to a Kiran's cyst. Sometimes the Kiran's cyst we will resolve spontaneously and does not require further treatment. I discussed with the patient that if the cyst ever remains she should contact the office for an aspiration procedure. Plan - RTC 1 year or sooner - Continue meloxicam 7.5mg (2) Seropositive rheumatoid arthritis: Comment: Plaquenil: November 2018-April 2024 Code(s): M05.9 - Rheumatoid arthritis with rheumatoid factor, unspecified Category: Medical Plan: #RF positive Patient is RF positive without any signs or symptoms concerning for rheumatoid arthritis. She has been off her Plaquenil since April and has not had any prolonged morning stiffness or pain or swelling to her hands. We will continue to monitor. Plan I spent 20 minutes reviewing the record and labs, seeing the patient, discussing the treatment plan and documenting in the medical record ? Medications: Refilled meloxicam 7.5 mg PO DAILY PRN 30 tabs 5RF for pain M05.9 - Rheumatoid arthritis with rheumatoid factor, unspecified Coding Level of Care Code Est Pt Level 3 (77048) Diagnoses Chronic right-sided low back pain without sciatica M54.50; G89.29 Chronicity: chronic Back pain laterality: right Sciatica presence: without sciatica Seropositive rheumatoid arthritis M05.9
[2024-11-27 16:26] VITALS: BP 100/58; PULSE 77; O2SAT 98; BMI 22.8
== END 2024-11-27 16:48 | disposition home or self-care (01) ==
PROVIDERS: PCP Student in an Organized Health Care Education/Training Program; Visit Provider Student in an Organized Health Care Education/Training Program
DX: M54.50 Low back pain, unspecified (principal); G89.29 Other chronic pain; M05.79 Rheumatoid arthritis with rheumatoid factor of multiple sites without organ or systems involvement
CPT/HCPCS: 99213

== ENCOUNTER → 2024-11-27 16:11 | Outpatient (BNVA) | payer MEDICAID, SELFPAY | PROVIDERS: PCP Student in an Organized Health Care Education/Training Program; Visit Provider Student in an Organized Health Care Education/Training Program | DX: M05.9 Rheumatoid arthritis with rheumatoid factor, unspecified (principal); M54.50 Low back pain, unspecified; M25.569 Pain in unspecified knee; G89.29 Other chronic pain | CPT/HCPCS: 99212 ==

== ENCOUNTER 2025-01-12 14:51 | Outpatient (AMB) | payer MEDICAID, SELFPAY ==
--- NOTE | 2025-01-12 15:09 | A.OFFVIS_ITS ---
Vital Signs 01/12/25 15:10 Height 5 ft 2 in Weight 122 lb 9.232 oz BMI 22.4 BP 113/52 L Blood Pressure Location Rt brachial Position Sitting Pulse 63 Intake Visit Reasons: 3 months follow up Intake Note: Patient in office today in follow up of constipation. 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 Required: Yes High School Admissions Representative Services: High School Admissions Representative Present Accompanied by: Self / Same As Patient Allergies ibuprofen Allergy (Severe, Verified 01/12/25 15:20) Unknown almond Allergy (Severe, Uncoded 11/27/24 16:20) Swelling dust Allergy (Mild, Uncoded 09/15/24 11:41) Itchy Eyes pollen Allergy (Mild, Uncoded 09/15/24 11:41) Itchy Eyes HPI HPI 3 months follow up: Details: 39 yr old f with hx of RA being seen for f/u for Hep B RECAP: she conts on plaquenil for RA Hep b labs positive, Hep d negative LFT normal she says she knew she had hep b from she does not drink alcohol LABS: 01/2022--LFt nml, HBV VL--7700, HBe Ag--neg, Hep C neg LFT nml, HBV VL--7000, Hbe neg 10/28-- nml INTERIM: her only problem is constipation had for few years, runs in the family she never tried any laxatives, just honey she denies abdominal pain no nausea or vomiting denies rectal bleeding, no melena EXAM: GENERAL: The patient is well developed and nontoxic. VITAL SIGNS:see workflow HEENT: Nonicteric sclerae, PERRLA, EOMI. Oropharynx clear. Moist mucous membranes. Conjunctivae appear well perfused. No thyroid mass. CHEST: Chest wall is nontender. HEART: Regular rate and rhythm without murmurs. LUNGS: Clear to auscultation bilaterally. ABDOMEN: Soft, positive bowel sounds, nontender, no organomegaly.no flank tenderness SKIN: No rash, no excessive bruising, petechiae, or purpura. NEUROLOGIC: Cranial nerves II-XII intact without motor/sensory deficit. A/P: 1/ Chronic Hep B, e Ag neg, nml LFt -- immune tolerant phase. 2/ Chronic anemia, microcytosis, prob thalaseemia 3/ RA: On plaquenil PLAN: 1/recheck labs today, make sure not entering immune active phase 2/ As noted before---If she has to escalate RA treatment to biologics then she would need treatment to prevent acute hep B flare 3/ liver for monitoring -- in 6 months 4/ try miralax --if worsening or no better then colonoscopy--check TSH PFS Medical History Knee pain Hypovitaminosis D Chronic hepatitis B Seropositive rheumatoid arthritis Surgical History No pertinent past surgical history Social History Household Members: Spouse and Children Housing: Apartment Are you a primary summer child caregiver to a significant other at home: No Do you presently have visiting nurse or other home services: No Alcohol intake: never Patient Tobacco Use Status: Never used Tobacco e-Cigarette/Vaping Use: Never Used service: No Current occupational status: unemployed Physical Exam Vital Signs: Last Vital Signs Pulse 63 01/12/25 15:10 BP 113/52 L 01/12/25 15:10 BMI result Body Mass Index 22.4 Assessment & Plan Assessment & Plan (1) Chronic hepatitis B: Comment: Code(s): B18.1 - Chronic viral hepatitis B without delta-agent Category: Medical Plan: as above Orders: Orders Comprehensive Met. Panel Today B18.1 - Chronic viral hepatitis B without delta- agent, K75.81 - Nonalcoholic steatohepatitis (CHENG) Vitamin D 25-OH Total Today B18.1 - Chronic viral hepatitis B without delta- agent Complete Blood Count Auto Diff Today B18.1 - Chronic viral hepatitis B without delta-agent Vitamin A Today B18.1 - Chronic viral hepatitis B without delta-agent Hepatitis B Viral DNA Qn Today B18.1 - Chronic viral hepatitis B without delta- agent Hepatitis BE Antibody Today B18.1 - Chronic viral hepatitis B without delta- agent Hepatitis BE Antigen Today B18.1 - Chronic viral hepatitis B without delta- agent TSH reflex Free T4 Today B18.1 - Chronic viral hepatitis B without delta-agent Medications: New polyethylene glycol 3350 (Miralax) 17 grams PO DAILY 100 ea 0RF Coding Level of Care Code Est Pt Level 4 (76041) Diagnoses Chronic hepatitis B B18.1
[2025-01-12 15:10] VITALS: BP 113/52; PULSE 63; BMI 22.4
--- OUTSIDE RECORDS SUMMARY | 2025-01-12 17:01 | XMS_ITS | Encounter Summary ---
Author Organization [employer] Address [address] [place] [address] Care Team Providers Care [employer] Name Role Phone Andria Gomez MD Primary Care Provider [phone] Reason for Visit * Reason Onset Date Comments pain and root left in gum 06/04/2024 Encounter Details Date Type Department Care Team (Late st Contact Info) Description 06/04/2024 Telephone [facility] [address], [place] [phone] Pravin Dykes DDS [address], [place] [phone] pain and root left in gum Social History Tobacco Use Types Packs/Day Years Used Date Smoking Tobacco: Never Smokeless Tobacco: Never Alcohol Use Standard Drinks/Week Comments Never 0 (1 standard drink = 0.6 oz pur e alcohol) Depression Answer Date Recorded Patient Health Questionnaire-9 Score 0 01/16/2024 Patient Health Questionnaire-9 Score 0 01/16/2024 Last PHQ-9: Questionnaire Data Not on file 0 01/16/2024 Housing Stability Answer Date Recorded What is your housing situation today? I have ramiro sullivan 01/16/[address] you li ve. Do you have problems with any of the following? None of the above 01/16/2024 Food Insecurity Answer Date Recorded Within the past 12 months, y ou worried that your food would run out before you got money to buy more: Never True 01/16/2024 Within the past 12 months,th e food you bought just didn't last and you didn't have enough money to get more: Never True Transportation Answer Date Recorded In the past 12 months, has l ack of transportation kept you from medical appts, meetings, work or from getting things needed for daily living? No 01/16/2024 Utilities Answer Date Recorded In the past 12 months, has t he electric, gas, oil or water company threatened to shut off services in your home? No 01/16/2024 Depression Answer Date Recorded Patient Health Questionnaire-2 Score 0 01/16/2024 Comments No Sex and Gender Information Value Date Recorded Sex Assigned at Female 09/04/2022 10:25 AM EDT Legal Sex Female 10:25 AM EDT Gender Identity Female 09/04/2022 10:25 AM EDT Sexual Orientation Straight 09/04/2022 10 :25 AM EDT documented as of this encounter Miscellaneous Notes * Telephone Encounter - Ramila Porter - 06/04/2024 2:[address] PM [address]T Message for Dr. Dykes Patient calling in stating that they had an extraction yesterday and states that root was still left in her gum. She is in pain . I informed patient that I would send message to provider as a follow up but that she is also able to call in early tomorrow morning to get on as an emergency patient. documented in this encounter Plan of Treatment Not on file documented as of this encounter Visit Diagnoses Not on filedocumented in this encounter Additional Health Concerns Assessment Noted Time PHQ-9 Depression Total Score: 0 01/16/20 24 9:16 AM EDT documented as of this encounter Care Teams [employer] Relationship Specialty Start Date End Date Andria Gomez MD [address] [place] [address] PCP - General Family Medicine 09/09/13 documented as of this encounter
--- OUTSIDE RECORDS SUMMARY | 2025-01-12 17:01 | XMS_ITS | Encounter Summary ---
Author Organization [employer] Address [address] [place] [address] Care Team Providers Care Amusement Ride Operator Name Role Phone Andria Gomez MD Primary Care Provider [phone] Encounter Details Date Type Department Care Team ([facility] st Contact Info) Description 12/07/2023 Telephone [facility] [address] [place] [address] Andria Gomez MD [address] [place], [place] [phone] Social History Tobacco Use Types Packs/Day Years Used Date Smoking Tobacco: Never Smokeless Tobacco: Never Comments Unknown Sex and Gender Information Value Date Recorded Sex Assigned at Female 09/04/2022 10:25 AM EDT Legal Sex Female 10:25 AM EDT Gender Identity Female 09/04/2022 10:25 AM EDT Sexual Orientation Straight 09/04/2022 10 :25 AM EDT documented as of this encounter Plan of Treatment Not on file documented as of this encounter Visit Diagnoses Not on filedocumented in this encounter Care Teams Amusement Ride Operator Relationship Specialty Start Date End Date Andria Gomez MD [address] [place] [address] PCP - General Family Medicine 09/09/13 documented as of this encounter
--- OUTSIDE RECORDS SUMMARY | 2025-01-12 17:01 | XMS_ITS | Clinical Summary ---
Author Organization [employer] Address [address] [place] [address] Care Team Providers Care Underground Utility Locator Name Role Phone Andria Gomez MD Primary Care Provider [phone] Allergies Active Allergy Reactions Criticality Noted Date Comments Dust Mite Extract 02/05/2024 Gramineae Pollens 09/17/2023 Medications hydroxychloroqu ine (Plaquenil) 200 MG tablet Take 1 tablet by mouth in the morning. 3 Active cyanocobalamin (Vitamin B-12) 1000 MCG tablet Take 1,000 mcg by mouth in the morning. 3 Active albuterol 108 (90 Base) MCG/ACT inhalerIndicati ons:Acute cough Inhale 2 puffs every 4 (four) hours if needed for wheezing. 18 g 3 Active biotin 10 MG capsule Take 1 capsule (10 mg) by mouth 2 times daily. 30 capsule 11 4 Active folic acid (Folvite) 1 MG tablet TAKE 1 TABLET BY MOUTH EVERY DAY 90 tablet 6 4 Active chlorhexidine (Peridex) 0.12 % solution Swish 15 mL morning and night for 1 minute. Spit, do not swallow. Do not eat or drink for 30 minutes following use. 473 mL 4 Active diphenhydrAMINE (BENADryl) 25 MG tablet Take 1 tablet (25 mg) by mouth every 8 (eight) hours if needed (mild allergic reaction). 30 tablet 3 4 Active fexofenadine (Kari) 180 MG tablet Take 1 tablet (180 mg) by mouth if needed each day (Allergies). 90 tablet 2 4 07/02/20 25 Active Active Problems Problem Noted Date Diagnosed Date Retained dental root 06/05/2024 Gingivitis, acute, plaque induced 04/04/2024 Acute pericoronitis 04/04/2024 Anemia affecting in third trimester Chronic hepatitis B 02/05/2024 exam 02/05/2024 High blood hemoglobin F 09/17/2023 09/17/20 Rheumatoid arteritis 09/17/2023 09/17/2023 Encounters Date Type Department Care Team Description 10/27/2024 Orders Only [facility] External Provider, [facility] from Last 3 Months Immunizations Name Administration Dates Next Due Influenza, IIV3, injectable 07/21/2019, 2 Tdap 05/05/2019,01/14/2018,02/12/2013 Social History Tobacco Use Types Packs/Day Years Used Date Smoking Tobacco: Never Passive Smoke Exposure: Never Smokeless Tobacco: Never Tobacco Cessation:Counseling Given: Not Answered Alcohol Use Standard Drinks/Week Comments Never 0 (1 standard drink = 0.6 oz pur e alcohol) Depression Answer Date Recorded Patient Health Questionnaire-9 Score 0 01/16/2024 Patient Health Questionnaire-9 Score 0 01/16/2024 Last PHQ-9: Questionnaire Data Not on file 0 01/16/2024 Housing Stability Answer Date Recorded What is your housing situation today? I have ramiroashley sullivan 01/16/[address] you [...] Orientation Straight 09/04/2022 10 :25 AM EDT Last Filed Vital Signs Vital Sign Reading Time Taken Comments Blood Pressure 109/66 07/02/2024 10:36 AM EDT Pulse 59 07/02/2024 10:36 AM EDT Temperature 37.1 ??C (98.7 ??F) 07/02/2024 10:36 AM E DT Respiratory Rate 16 07/02/2024 10:36 AM EDT Oxygen Saturation 100% 07/02/2024 10:36 AM EDT Inhaled Oxygen Concentration - - Weight 57.2 kg (126 lb) 07/02/2024 10:36 AM EDT Height 157.5 cm (5' 2 ) 07/02/2024 10:36 AM EDT Body Mass Index 23.05 07/02/2024 10:36 AM EDT Plan of Treatment Health Maintenance Due Date Last Done Comments HIV Screening 1985 Alcohol/Substance Use Screening 1995 Hepatitis A Vaccines (1 of 2 - Risk 2-dose series) 2002 Hepatitis B Vaccines (1 of 3 - 19+ 3-dose series) 2002 Pneumococcal Vaccine: Pediatrics (0 to 5 Years) and At-Risk Patients (6 to 49) Years) (1 of 2 - PCV) 2002 COVID-19 Vaccine ( - season) 2024 03/03/2021, 02/03/2021 Influenza Vaccine (#1) 2024 07/21/2019, 2011 Dental Oral Exam 11/01/2024 05/01/2024, 12/2016, 09/28/2015 Dental Prophylaxis 11/01/2024 05/01/2024, 0 06/06/2017, 12/22/2015 Depression Screening 01/15/2025 01/16/2024, 01/16/20 SDOH Screening 01/15/2025 01/16/2024 Mammogram 01/31/2025 02/01/2024 Family Planning (PISQ) 02/04/2025 02/05/2024 Dental X-Ray: Bitewings 05/02/2025 05/01/20 24, 08/06/2017, 06/06/2017, Additional history exists Tobacco Screening 07/02/2025 07/02/2024 Pap Smear 02/04/2027 02/05/2024 Dental X-Ray: Full Mouth 04/05/2027 024, 06/06/2017, 09/28/2015 Cervical Cancer Screening 02/04/2029 HPV/Cotest 02/04/2029 02/05/2024, 02/13/2017 DTaP/Tdap/Td Vaccines (4 - Td or Tdap) 05/05/2029 05/05/2019, 01/14/2018, 02/12/2013 Zoster Vaccines (1 of 2) 2033 RSV Patients and Patients Aged 60 years or older (1 - 1-dose 75+ series) 2058 Hepatitis C Screening Completed 05/12/2024 , 01/16/2024, 01/13/2022, Additional history exists HIB Vaccines Aged Out No longer eligi ble based on patient's age to complete this topic HPV Vaccines Aged Out No longer eligi ble based on patient's age to complete this topic IPV Vaccines Aged Out No longer eligi ble based on patient's age to complete this topic Meningococcal Vaccine Aged Out No mildred jhon eligible based on patient's age to complete this topic RSV under 20 months Aged Out No longe r eligible based on patient's age to complete this topic Rotavirus Vaccines Aged Out No longer eligible based on patient's age to complete this topic Procedures Procedure Name Priority Date/Time Associated Diagnosis Comments US ABDOMEN OROZCO W ELASTOGRAPHY Routine 10/27/2024 8:30 AM EST HEPATITIS PANEL, GENERAL Routine 05/12/2024 11:46 AM EDT PROPHYLAXIS - ADULT Routine 05/01/2024 1 :00 PM EDT Dental plaque Dental calculus BITEWINGS - 4 RADIOGRAPHIC IMAGES Routine 05/01/2024 1:00 PM EDT PERIODIC ORAL EVALUATION - ESTABLISHED PATIENT Routine 05/01/2024 1:00 PM EDT Dental plaque Dental calculus Encounter for dental examination Dental caries PANORAMIC RADIOGRAPHIC IMAGE Routine 04/04/2024 2:30 PM EDT HPV MRNA E6/E7 REFLEX TO HPV 16, 18/45 Routine 02/05/2024 11:20 AM EDT PAP SMEAR Routine 02/05/2024 11:20 AM EDT Cervical cancer screening BI MAMMOGRAM SCREENING TOMOSYNTHESIS BILATERAL Routine 02/01/2024 9:35 AM EDT from Last 3 Months or Most Recently Relevant to Health Maintenance Results * US ABDOMEN OROZCO W ELASTOGRAPHY (10/27/2024 8:30 AM EST) Anatomical Region Laterality Modality Abdomen Ultrasound 10/27/2024 8:30 AM EST Narrative 11/19/2024 10:56 AM EST ? [facility] ?[address] ?[place] [address] ? Ultrasound Report ? Signed ? Patient: Aylinzllisandra,Jewela ?MR#: [id number] ? : 1985 ?Acct:[id number] ? Age/Sex: 38 / F ?ADM Date: 10/27/24 ? Loc: HO.US ? Attending Dr: Cory Sanchez MD ? Ordering Physician: Cory Sanchez MD ?? Date of Service: 10/27/24 ?? Procedure(s): US abdomen orozco w elastography ?? Accession Number(s): [id number] ? cc: Cory Sanchez MD; Andria Gomez MD ? EXAMINATION: ??US ABDOMEN LIMITED WITH LIVER ELASTOGRAPHY ? HISTORY: K75.81 - Nonalcoholic steatohepatitis (CHENG) ? TECHNIQUE: Real-time grayscale ultrasound imaging of the abdomen was ?? performed and images were reviewed. ? COMPARISON: Comparison is made with the prior examination dated ?? 12/14/2023. ? FINDINGS: ?? Liver: ??The liver is normal in size and demonstrates homogeneous ?? echotexture. ??No focal mass or intrahepatic biliary ductal dilatation ?? is identified. ??There is normal hepatopedal flow in the portal vein. ? Ultrasound elastography of the liver was performed with 10 separate ?? measurements of the liver parenchyma with the patient in the supine ?? position. ??Measurements were obtained approximately 2 cm below ?? Faviola's capsule and perpendicular to the capsule. ??Images are of ?? satisfactory quality. ? The median shear wave velocity is 1.39 m/s. ?? The interquartile range/median (IQR/median) is 0.36. ? Gallbladder and biliary tree: The gallbladder is unremarkable, without ?? evidence of calculi, wall thickening, or pericholecystic fluid. ??There ?? is no sonographic Ordonez sign. ??The common bile duct is normal in ?? caliber measuring 2 mm. ? Kidneys: ??The right kidney measures 11.9 cm in length. ??The right ?? kidney is unremarkable, without evidence of masses, hydronephrosis, or ?? calculi. ? Pancreas: The pancreatic head, neck, and body are unremarkable. The ?? pancreatic tail is obscured by bowel gas. ? Abdominal aorta and inferior vena cava: The visualized portions of the ?? abdominal aorta and inferior vena cava are normal in caliber. ? There is no free fluid in the abdomen. ? US/US abdomen orozco w elastography ?? IMPRESSION: ? Unremarkable right upper quadrant ultrasound. ? The median shear wave velocity is 1.39 m/s, corresponding to a median ?? liver stiffness of 5.87 kPa. ??The IQR/median value is 0.06. ??This is ?? indicative of a quality data set. ?? Findings are indicative of a low elastography value which rules out ?? advanced chronic liver disease in asymptomatic patients. ? REFERENCE: ?? Society of Radiologists in Ultrasound Liver Stiffness Thresholds (2020): ? LIVER STIFFNESS THRESHOLDS: ?? *Shear wave velocity less than 1.3 m/s (Liver Stiffness equal or less ?? than 5 kPa): ??High probability of being normal. ?? *Shear wave velocity less than 1.7 m/s (Liver Stiffness less than 9 ?? kPa): ??In the absence of other known clinical signs, rules out ?? compensated advanced chronic liver disease. ?? *Shear wave velocity between 1.7-2.1 m/s (Liver Stiffness 9-13 kPa): ? Suggestive of compensated advanced chronic liver disease but need ?? further test for confirmation. ?? *Shear wave velocity between 2.1-2.4 m/s (Liver Stiffness 13-17 kPa): ? Rules in compensated advanced chronic liver disease. ?? *Shear wave velocity ??greater than 2.4 m/s (Liver Stiffness over 17 ?? kPa): ??Suggestive of clinically significant portal hypertension. ? QUALITY OF DATA SET: ?? *IQR/Median value equal or less than 0.15 implies a quality data set. ?? *IQR/Median value over 0.15 implies a poor quality data set. ? SIGNIFICANT CHANGE FROM PRIOR EXAM: ?? Significant change if liver stiffness measurement is 10% or greater ?? from prior exam. ? OTHER CONSIDERATIONS: ?? The stage of liver fibrosis may be overestimated in the setting of ?? acute hepatitis, liver inflammation, elevated liver function tests, ?? hepatic vascular congestion, obstructive cholestasis, non-fasting ?? state, and infiltrative diseases such as amyloidosis and lymphoma. ??In ?? some patients with NAFLD, the liver stiffness thresholds for ?? compensated advanced chronic liver disease may be lower. ??In causes ?? other than viral hepatitis and NAFLD, liver stiffness thresholds are ?? not well established. ? Electronically signed by: ??Arian Felton MD ??11/19/2024 10:53 AM EST ?? RP ? Dictated By: ?Arian Felton MD ? Signed By: ?<Electronically signed by Arian Felton MD in OV> ?11/19/24 1053 ? DD/ 0830 ? TD/TT: 10/27/24 0900 ? News Reel Cameraman: ? Procedure Note Brigida, Image - 11/19/[address] [address] Ultrasound Report Signed Patient: Liliane Barragan#: [id number] : 1985Acct:[id number] Age/Sex: 38 / FADM Date: 10/27/24 Loc: HO.US Attending Dr: Cory Sanchez MD Ordering Physician: Cory Sanchez MD Date of Service: 10/27/24 Procedure(s): US abdomen orozco w elastography Accession Number(s): [id number] cc: Cory Sanchez MD; Andria Gomez MD EXAMINATION: US ABDOMEN LIMITED WITH LIVER ELASTOGRAPHY HISTORY: K75.81 - Nonalcoholic steatohepatitis (CHENG) TECHNIQUE: Real-time grayscale ultrasound imaging of the abdomen was performed and images were reviewed. COMPARISON: Comparison is made with the prior examination dated 12/14/2023. FINDINGS: Liver: The liver is normal in size and demonstrates homogeneous echotexture. No focal mass or intrahepatic biliary ductal dilatation is identified. There is normal hepatopedal flow in the portal vein. Ultrasound elastography of the liver was performed with 10 separate measurements of the liver parenchyma with the patient in the supine position. Measurements were obtained approximately 2 cm below Faviola's capsule and perpendicular to the capsule. Images are of satisfactory quality. The median shear wave velocity is 1.39 m/s. The interquartile range/median (IQR/median) is 0.36. Gallbladder and biliary tree: The gallbladder is unremarkable, without evidence of calculi, wall thickening, or pericholecystic fluid. There is no sonographic Ordonez sign. The common bile duct is normal in caliber measuring 2 mm. Kidneys: The right kidney measures 11.9 cm in length. The right kidney is unremarkable, without evidence of masses, hydronephrosis, or calculi. Pancreas: The pancreatic head, neck, and body are unremarkable. The pancreatic tail is obscured by bowel gas. Abdominal aorta and inferior vena cava: The visualized portions of the abdominal aorta and inferior vena cava are normal in caliber. There is no free fluid in the abdomen. US/US abdomen orozco w elastography IMPRESSION: Unremarkable right upper quadrant ultrasound. The median shear wave velocity is 1.39 m/s, corresponding to a median liver stiffness of 5.87 kPa. The IQR/median value is 0.06. This is indicative of a quality data set. Findings are indicative of a low elastography value which rules out advanced chronic liver disease in asymptomatic patients. REFERENCE: Society of Radiologists in Ultrasound Liver Stiffness Thresholds (2020): LIVER STIFFNESS THRESHOLDS: *Shear wave velocity less than 1.3 m/s (Liver Stiffness equal or less than 5 kPa): High probability of being normal. *Shear wave velocity less than 1.7 m/s (Liver Stiffness less than 9 kPa): In the absence of other known clinical signs, rules out compensated advanced chronic liver disease. *Shear wave velocity between 1.7-2.1 m/s (Liver Stiffness 9-13 kPa): Suggestive of compensated advanced chronic liver disease but need further test for confirmation. *Shear wave velocity between 2.1-2.4 m/s (Liver Stiffness 13-17 kPa): Rules in compensated advanced chronic liver disease. *Shear wave velocity greater than 2.4 m/s (Liver Stiffness over 17 kPa): Suggestive of clinically significant portal hypertension. QUALITY OF DATA SET: *IQR/Median value equal or less than 0.15 implies a quality data set. *IQR/Median value over 0.15 implies a poor quality data set. SIGNIFICANT CHANGE FROM PRIOR EXAM: Significant change if liver stiffness measurement is 10% or greater from prior exam. OTHER CONSIDERATIONS: The stage of liver fibrosis may be overestimated in the setting of acute hepatitis, liver inflammation, elevated liver function tests, hepatic vascular congestion, obstructive cholestasis, non-fasting state, and infiltrative diseases such as amyloidosis and lymphoma. In some patients with NAFLD, the liver stiffness thresholds for compensated advanced chronic liver disease may be lower. In causes other than viral hepatitis and NAFLD, liver stiffness thresholds are not well established. Electronically signed by: Arian Felton MD 11/19/2024 10:53 AM EST Dictated By: Arian Felton MD Signed By: <Electronically signed by Arian Felton MD in OV> 11/19/24 1053 DD/ 0830 TD/TT: 10/27/24 0900 News Reel Cameraman: us [facility] External Provider IMG US PROCEDURES Final Result * Hepatitis Panel, General (05/12/2024 11:46 AM EDT) Hepatitis A IgM Nonreactive Nonreactive [facility] Comment:IgM antibodies to DUGGAN V not detected; does not exclude earlyacute or recovered HAV infection. ~Hepatitis B Surface Antibody NONREACTIVE Nonreactive [facility] Comment:Nonreactive: < 8.00 mIU/mL Hepatitis B Core Antibody Reactive Nonreactive [facility] Comment:Presumptive evidence of anti-HBc. Hepatitis C Antibody Nonreactive Nonreactive [facility] Comment:Antibodies to HCV no t detected; does not exclude early acuteHCV infection. 05/12/2024 11:4 6 AM EDT 05/12/2024 11:46 AM EDT us Generic External Data Provider LAB BLOOD ORDERAB LES Final Result Performing Organization Address [facility]/ZIP Co de Phone Number [facility] [address] [place] [address] [phone] * HPV mRNA E6/E7 w/Reflex to HPV Genotypes 16, 18/45 (02/05/2024 11:20 AM EDT) HPV nRNA E6/E7 Not Detected Not Detected [facility] Comment:Methodology: Transcr iption-Mediated AmplificationThis assay detects E6/E7 viral messenger RNA (mRNA) from 14high-risk HPV types (16,18,31,33,35,39,45,51,52,56,58,59,66,68).Cervical sources are required for HPV testing.If a vaginal source from a patient who has had atotal hysterectomy with removal of cervix wassubmitted, please contact the testing laboratoryfor alternative testing options.For additional information, please refer tohttp://education.[employer]/faq/YDP344h8(This link if provided for information/educational purposes only.)THIS TEST WAS PERFORMED AT:[facility] [place] [phone] NAGY MD HPV mRNA E6/E7 [facility] HPV 16 RNA [facility] HPV 18/45 RNA [facility] 02/05/2024 11:2 0 AM EDT 02/07/2024 6:30 AM EDT Sabas Manuel CNM LAB CYTOLOGY ORDERABLES F inal Result Performing Organization Address [facility]/ZIP Co de Phone Number [facility] [address] [place] [address] [phone] * Pap Smear (02/05/2024 11:20 AM EDT) Swab Cervix uteri structure / Unknown 02/05/2024 11:20 AM EDT 02/07/2024 6:30 AM EDT Narrative [facility] - 02/23/2024 4:23 PM EDT ----- ------- Name: Shahab Barragan ? Age/Sex: 38/F ? : 1985 Unit#: [id number] ?? Attend Dr: SABAS MANUEL CNM ?Re02/05/24 ?Status: DEP REF ? [facility] ? Disch: ? ----- ------- SPEC : [id number] ? RECD: 02/07/24-629 ? STATUS: ??SOUT ? REQ NUM: [id number] ? CANDIE: 02/05/24 ? SUBM DR: SABAS MANUEL CNM ? ENTERED: ??02/07/24 ?SP TYPE: Pap Smr ?OTHR DR: ? ORDERED: ??Pap Smear ? Interpretation ?? Satisfactory for evaluation. ?? No endocervical cells seen. ?? Negative for intraepithelial lesion or malignancy. ?? Moderate inflammation. ? HPV mRNA E6/E7: ?NOT DETECTED ? This assay detects E6/E7 viral messenger RNA (mRNA) from 14 high-risk HPV types (16, 18, ?? 31, 33, 35, 39, 45, 51, 52, 56, 58, 59, 66, 68) ? HPV testing performed by [facility], [place], [place]. ??See reference laboratory ?? portion of the EMR for entire report. ?Clinical Information LMP: Unknown date Previous PAP test: 2017, WNL ? Material Received ?? ThinPrep-Cervical ----- ------- Signed (signature on file) Jerri A Jacques 02/23/24 1623 ? ----- ------- ? END OF REPORT ? us Sabas Manuel CN LAB CYTOLOGY ORDERABLES F inal Result [facility] [address] [place] [address] [phone] * BI Mammogram Screening Tomosynthesis Bilateral (02/01/2024 9:35 AM EDT) Anatomical Region Laterality Modality Breast Bilateral Mammography 02/01/2024 9:35 AM EDT Narrative 02/16/2024 5:00 PM EDT ? [facility] ? [address] [facility] ?[place] [address] ? Mammography Report ? Signed ? Patient: Gizli,Meliha ?MR#: [id number] ? : 1985 ?Acct:[id number] ? Age/Sex: 38 / F ?ADM Date: 03/29/24 ? Loc: HO.MAMMO ? Attending Dr: Andria S Jason MD ? Ordering Physician: Jason,Andria S MD ?Results: 1Negati ?? ve ? Date of Service: 02/01/24 ?Follow Up: 1 Year From Orig ?? inal Mammogram ? Procedure(s): MM tomosynthesis screening BI ?? Accession Number(s): [id number] ? cc: Andria Gomez MD ? EXAMINATION: ?? MM SCREENING DIGITAL BREAST TOMOSYNTHESIS, BILATERAL ? CLINICAL INFORMATION: ? Screening. Asymptomatic. ? COMPARISON: ?? Mammography: This is a baseline mammogram. ? TECHNIQUE: ?? Digital breast tomosynthesis is performed in both the craniocaudal and ?? mediolateral oblique views along with computer-aided detection (CAD). ?? Synthesized 2D images are generated from the tomosynthesis. ? FINDINGS: ?? The breasts are heterogeneously dense, which may obscure small masses ?? (ACR BI-RADS breast composition Category c). ? There are no significant masses, abnormal calcifications, or other ?? abnormalities. ? MM/MM tomosynthesis screening BI ?? IMPRESSION: ?? No mammographic evidence of malignancy. ? ASSESSMENT: ? BI-RADS BI-RADS 1 - Negative ? RECOMMENDATION: ?? Routine annual mammography screening. ? 1 year F/U ? This examination should not preclude the clinical evaluation of a ?? suspicious palpable abnormality. ? This patient's information was entered into a reminder system with a ?? target due date for their next mammogram. ? Dictated By: ?Julieta Arias MD ? Signed By: ?<Electronically signed by Julieta Arias MD in OV> ? 02/16/241656 ? DD/ 4 ? TD/TT: ? News Reel Cameraman: ? Procedure Note Brigida, Jian - 02/16/2024 [facility] [address] [place], [place] [address] Mammography Report Signed Patient: Jaz BarraganR#: [id number] : 1985Acct:[id number] Age/Sex: 38 / FADM Date: 02/01/24 Loc: HO.MAMMO Attending Dr: Andria Gomez MD Ordering Physician: Andria Gomez MDResults: 1Negati ve Date of Service: 02/01/24Follow Up: 1 Year From Orig inal Mammogram Procedure(s): MM tomosynthesis screening BI Accession Number(s): [id number] cc: Andria Gomez MD EXAMINATION: MM SCREENING DIGITAL BREAST TOMOSYNTHESIS, BILATERAL CLINICAL INFORMATION: Screening. Asymptomatic. COMPARISON: Mammography: This is a baseline mammogram. TECHNIQUE: Digital breast tomosynthesis is performed in both the craniocaudal and mediolateral oblique views along with computer-aided detection (CAD). Synthesized 2D images are generated from the tomosynthesis. FINDINGS: The breasts are heterogeneously dense, which may obscure small masses (ACR BI-RADS breast composition Category c). There are no significant masses, abnormal calcifications, or other abnormalities. MM/MM tomosynthesis screening BI IMPRESSION: No mammographic evidence of malignancy. ASSESSMENT: BI-RADS BI-RADS 1 - Negative RECOMMENDATION: Routine annual mammography screening. 1 year F/U This examination should not preclude the clinical evaluation of a suspicious palpable abnormality. This patient's information was entered into a reminder system with a target due date for their next mammogram. Dictated By: Julieta Arias MD Signed By: <Electronically signed by Julieta Arias MD in OV> 02/16/24 1657 DD/ 0935 TD/TT: News Reel Cameraman: Andria Gomez MD IMG BI PROCEDURES Edited Result - Final from Last 3 Months or Most Recently Relevant to Health Maintenance Insurance [place] [facility] MEDICAID STAND ADULT Care Teams Underground Utility Locator Relationship Specialty Start Date End Date Andria Gomez MD [address] [place] [phone] PCP - General Family Medicine 09/09/13
--- OUTSIDE RECORDS SUMMARY | 2025-01-12 17:01 | XMS_ITS | Encounter Summary ---
Author Organization [employer] Address [address] [place] [address] [address] [place] [address] Care Team Providers Care Business Test Analyst Name Role Phone Andria Gomez MD Primary Care Provider [phone] Reason for Visit * Reason Onset Date Comments Appointment Request 12/07/2023 Encounter Details Date Type Department Care Team ([facility] st Contact Info) Description 12/07/2023 Telephone [facility] [address] [place] [phone] Andria Gomez MD [address] [place] [phone] Appointment Request Social History Tobacco Use Types Packs/Day Years [...] encounter Miscellaneous Notes * Telephone Encounter - Sofya Blunt - 12/07/2023 9:07 AM EST Tc from pt requesting PE appt with PCP, pt stated don't want to see any other provider. documented in this encounter Plan of Treatment Not on file documented as of this encounter Visit Diagnoses Not on filedocumented in this encounter Care Teams Business Test Analyst Relationship Specialty Start Date End Date Andria Gomez MD [address] [place] [address] PCP - General Family Medicine 09/09/13 documented as of this encounter
== END 2025-01-13 08:40 | disposition home or self-care (01) ==
PROVIDERS: PCP Student in an Organized Health Care Education/Training Program; Visit Provider Internal Medicine Gastroenterology
DX: B18.1 Chronic viral hepatitis B without delta-agent (principal)
CPT/HCPCS: 99214

== ENCOUNTER 2025-01-12 14:51 | Outpatient (REF) | payer MEDICAID, SELFPAY ==
[2025-01-12 16:07] LABS: MANUAL DIFF FLAG NO
[2025-01-12 17:14] LABS: Basophils Percent Auto 0.5 % (0-2); Eosinophils Absolute Auto 0.1 X10*3/uL (0.0-0.4); Eosinophils Percent Auto 2.3 % (0-4); Hematocrit 30.9 % (37.0-47.0); Hemoglobin 10.3 g/dl (12.0-16.0); Imm Gran Abs Auto 0.01 X10*3/uL (0.00-0.03); Imm Gran Pct Auto 0.2 % (0.0-0.4); Lymphocytes Absolute Auto 1.6 X10*3/uL (1.2-4.9); Lymphocytes Percent Auto 25.9 % (20-40); Mean Corpuscular HGB Conc 33.3 g/dl (31.0-35.0); Mean Corpuscular Hemoglobin 23.1 pg (27.0-33.0); Mean Corpuscular Volume 69.3 fL (80.0-98.0); Monocytes Absolute Auto 0.5 X10*3/uL (0.1-1.2); Monocytes Percent Auto 8.4 % (2-11); Neutrophils Absolute Auto 3.8 x10*3/uL (2.0-8.3); Neutrophils Percent Auto 62.7 % (45-73); Platelet Count 247 X10*3/uL (160-400); Red Blood Count 4.46 X10*6/uL (4.20-5.50); Red Cell Distribution Width 17.7 % (11.0-16.0)
[2025-01-12 17:39] LABS: Alanine Aminotransferase 22 U/L (0-31); Albumin Level 4.5 g/dL (3.5-5.0); Alkaline Phosphatase 52 U/L (39-117); Anion Gap 9 (12-20); Aspartate Amino Transferase 22 U/L (5-31); Bilirubin Total 0.9 mg/dL (0.0-1.0); Blood Urea Nitrogen 12 mg/dL (9-16); Carbon Dioxide 24 mmol/L (22-29); Chloride 110 mmol/L (96-108); Estimated Glomerular Filt Rate > 60; Glucose Random 72 mg/dL (60-115); Potassium 3.9 mmol/L (3.3-5.1); Sodium 139 mmol/L (135-145); Total Protein 8.3 g/dL (6.5-8.0)
--- OUTSIDE RECORDS SUMMARY | 2025-01-12 17:48 | XMS_ITS | Encounter Summary ---
Author Organization [employer] Address [address] [place] [address] 7t [place] [address] Care Team Providers Care Roving Department End Finder Name Role Phone Andria Gomez MD Primary Care Provider [phone] Reason for Visit * Reason Onset Date Comments Appointment Request 12/07/2023 Encounter Details Date Type Department Care Team ([facility] st Contact Info) Description 12/07/2023 Telephone [facility] [address] [place] [address] Andria Gomez MD [address] [place] [phone] Appointment Request Social History Tobacco Use Types [...] on filedocumented in this encounter Care Teams Roving Department End Finder Relationship Specialty Start Date End Date Andria Gomez MD [address] [place] [address] PCP - General Family Medicine 09/09/13 documented as of this encounter
--- OUTSIDE RECORDS SUMMARY | 2025-01-12 17:48 | XMS_ITS | Encounter Summary ---
Author Organization [employer] Address [address] [facility] [address] 7[address] [place] [address] Care Team Providers Care Recruiting Consultant Name Role Phone Andria Gomez MD Primary Care Provider [phone] Encounter Details Date Type Department Care Team ([facility] st Contact Info) Description 01/12/2025 Orders Only GENERIC EXTERNAL DATA DEPARTMENT Provider, Generic External Data Social History Tobacco Use Types Packs/Day Years Used Date Smoking Tobacco: Never Passive Smoke Exposure: Never Smokeless Tobacco: Never Alcohol Use Standard [...] as of this encounter Plan of Treatment Pending Results Name Type Priority Associated Diagnoses Date /Time Comprehensive Metabolic Panel Lab Routine 01/12/2025 4:06 PM EDT documented as of this encounter Procedures Procedure Name Priority Date/Time Associated Diagnosis Comments CBC WITH AUTO DIFFERENTIAL Routine 01/12/2025 4:06 PM EDT COMPREHENSIVE METABOLIC PANEL Routine 01/12/2025 4:06 PM EDT documented in this encounter Results * (ABNORMAL) CBC auto differential (01/12/2025 4:06 PM EDT) White Blood Count 6.0 4.8 - 10.8 X10*3/uL [facility] Red Blood Count 4.46 4.20 - 5.50 X10*6/uL [facility] Hemoglobin 10.3(L) 12.0 - 16.0 g/dl [facility] Hematocrit 30.9(L) 37.0 - 47.0 % [facility] Mean Corpuscular Volume 69.3(L) 80.0 - 98.0 fL [facility] Mean Corpuscular Hemoglobin 23.1(L) 27.0 - 33.0 pg [facility] Mean Corpuscular HGB Conc 33.3 31.0 - 35.0 g/dl [facility] Red Cell Distribution Width 17.7(H) 11.0 - 16.0 % [facility] Platelet Count 247 160 - 400 X10*3/uL [facility] Neutrophils Percent Auto 62.7 45 - 73 % [facility] Imm Gran Pct Auto 0.2 0.0 - 0.4 % [facility] Lymphocytes Percent Auto 25.9 20 - 40 % [facility] Monocytes Percent Auto 8.4 2 - 11 % [facility] Eosinophils Percent Auto 2.3 0 - 4 % [facility] Basophils Percent Auto 0.5 0 - 2 % [facility] NRBC Pct Auto 0.0 0.0 - 0.2 /100WBC [facility] Neutrophils Absolute Auto 3.8 2.0 - 8.3 x10*3/uL [facility] Imm Gran Abs Auto 0.01 0.00 - 0.03 X10*3/uL [facility] Lymphocytes Absolute Auto 1.6 1.2 - 4.9 X10*3/uL [facility] Monocytes Absolute Auto 0.5 0.1 - 1.2 X10*3/uL [facility] Eosinophils Absolute Auto 0.1 0.0 - 0.4 X10*3/uL [facility] Basophils Absolute Auto 0.0 0.0 - 0.2 X10*3/uL [facility] NRBC Abs Auto 0.000 0.0 - 0.012 X10*3/uL [facility] 01/12/2025 4:06 PM EDT 01/12/2025 4:06 PM EDT us Generic External Data Provider LAB BLOOD ORDERAB LES Final Result Performing Organization Address City/State/[facility] Co de Phone Number [facility] [address] [place] [phone] documented in this encounter Visit Diagnoses Not on filedocumented in this encounter Additional Health Concerns Assessment Noted Time PHQ-9 Depression Total Score: 0 01/16/20 24 9:16 AM EDT documented as of this encounter Care Teams Recruiting Consultant Relationship Specialty Start Date End Date Andria Gomez MD [address] [place] [phone] PCP - General Family Medicine 09/09/13 documented as of this encounter
--- OUTSIDE RECORDS SUMMARY | 2025-01-12 17:48 | XMS_ITS | Encounter Summary ---
Author Organization [employer] Address [address] [facility] 7t [place] [address] Care Team Providers Care Disintegrator Operator Name Role Phone Andria Gomez MD Primary Care Provider [phone] Encounter Details Date Type Department Care Team ([facility] st Contact Info) Description 12/07/2023 Telephone [facility] [address] [place] [address] Andria Gomez MD [address] [place], [place] [phone] Social History Tobacco Use Types Packs/Day Years [...] on filedocumented in this encounter Care Teams Disintegrator Operator Relationship Specialty Start Date End Date Andria Gomez MD [address] [place] [address] PCP - General Family Medicine 09/09/13 documented as of this encounter
--- OUTSIDE RECORDS SUMMARY | 2025-01-12 17:48 | XMS_ITS | Clinical Summary ---
Author Organization [employer] Address [address] [facility] [address] 7[address] [place] [address] Care Team Providers Care Distillery Worker Name Role Phone Andria Gomez MD Primary Care Provider [phone] Allergies Active Allergy Reactions Criticality Noted Date [...] 02/05/2024 High blood hemoglobin F 09/17/2023 09/17/20 23 Rheumatoid arteritis 09/17/2023 09/17/2023 Encounters Date Type Department Care Team Description 01/12/2025 Orders Only GENERIC EXTERNAL DATA DEPARTMENT Provider, Generic External Data 10/27/2024 Orders Only [facility] External Provider, [facility] from Last 3 Months Immunizations Name Administration [...] t he electric, gas, oil or water amaysim threatened to shut off services in your [...] 2 - PCV) 2002 COVID-19 Vaccine ( season) 2024 03/03/2021, 02/03/2021 Influenza Vaccine (#1) [...] Procedure Name Priority Date/Time Associated Diagnosis Comments COMPREHENSIVE METABOLIC PANEL Routine 01/12/2025 4:06 PM EDT CBC WITH AUTO DIFFERENTIAL Routine 01/12/2025 4:06 PM EDT US ABDOMEN OROZCO W ELASTOGRAPHY Routine 10/27/2024 [...] Recently Relevant to Health Maintenance Results * (ABNORMAL) CBC auto differential (01/12/2025 4:06 PM EDT) White Blood Count 6.0 4.8 - 10.8 X10*3/uL [facility] Red Blood Count 4.46 4.20 - 5.50 X10*6/uL [facility] Hemoglobin 10.3(L) 12.0 - 16.0 g/dl [facility] Hematocrit 30.9(L) 37.0 - 47.0 % [facility] Mean Corpuscular Volume 69.3(L) 80.0 - 98.0 fL [facility] Mean Corpuscular Hemoglobin 23.1(L) 27.0 - 33.0 pg [facility] Mean Corpuscular HGB Conc 33.3 31.0 - 35.0 g/dl [facility] Red Cell Distribution Width 17.7(H) 11.0 - 16.0 % [facility] Platelet Count 247 160 - 400 X10*3/uL [facility] Neutrophils Percent Auto 62.7 45 - 73 % [facility] Imm Gran Pct Auto 0.2 0.0 - 0.4 % [facility] Lymphocytes Percent Auto 25.9 20 - 40 % [facility] Monocytes Percent Auto 8.4 2 - 11 % [facility] Eosinophils Percent Auto 2.3 0 - 4 % [facility] Basophils Percent Auto 0.5 0 - 2 % [facility] NRBC Pct Auto 0.0 0.0 - 0.2 /100WBC [facility] Neutrophils Absolute Auto 3.8 2.0 - 8.3 x10*3/uL [facility] Imm Gran Abs Auto 0.01 0.00 - 0.03 X10*3/uL [facility] Lymphocytes Absolute Auto 1.6 1.2 - 4.9 X10*3/uL [facility] Monocytes Absolute Auto 0.5 0.1 - 1.2 X10*3/uL [facility] Eosinophils Absolute Auto 0.1 0.0 - 0.4 X10*3/uL [facility] Basophils Absolute Auto 0.0 0.0 - 0.2 X10*3/uL [facility] NRBC Abs Auto 0.000 0.0 - 0.012 X10*3/uL [facility] 01/12/2025 4:06 PM EDT 01/12/2025 4:06 PM EDT us Generic External Data Provider LAB BLOOD ORDERAB LES Final Result Performing Organization Address [facility]/State/[place] Co de Phone Number [facility] [address] [place] [phone] * US ABDOMEN OROZCO W ELASTOGRAPHY (10/27/2024 8:30 AM EST) Anatomical Region Laterality Modality Abdomen Ultrasound 10/27/2024 8:30 AM EST Narrative 11/19/2024 10:56 AM EST ? [facility] ?[address] ?[place] [address] ? Ultrasound Report ? Signed ? Patient: Gizli,Meliha ?MR#: [id number] ? : 1985 ?Acct:[id number] ? Age/Sex: 38 / F ?ADM Date: 12/23/24 ? Loc: HO.US ? Attending Dr: Cory Sanchez MD ? Ordering Physician: Cory Sanchez MD ?? Date of Service: 10/27/24 ?? Procedure(s): US abdomen orozco w elastography ?? Accession Number(s): [id number] ? cc: Cory Sanchez MD; Andria Gomez [...] of Radiologists in Ultrasound Liver Stiffness Thresholds (2019): ? LIVER STIFFNESS THRESHOLDS: ?? *Shear wave [...] DD/ 0830 ? TD/TT: 10/27/24 0900 ? Vice President Media Relations: ? Procedure Note Donotuseinterpreter, Image - 11/19/[address] [address] Ultrasound Report Signed Patient: Liliane Barragan#: [id number] : 1985Acct:[id number] Age/Sex: 38 / FADM Date: 10/27/24 Loc: HO.US Attending Dr: Cory Sanchez MD Ordering Physician: Cory Sanchez MD Date of Service: 10/27/24 Procedure(s): US abdomen orozco w elastography Accession Number(s): [id number] cc: Cory Sanchez MD; Andria Gomez MD [...] not well established. Electronically signed by: Arian Fleton MD 11/19/2024 10:53 AM EST RP Dictated By: Arian Felton MD Signed By: <Electronically signed by Arian Felton MD in OV> 11/19/24 1053 DD/ 0830 TD/TT: 10/27/24 0900 Vice President Media Relations: [facility] External Provider IMG US PROCEDURES Final Result * Hepatitis Panel, General (05/12/2024 11:46 AM EDT) Hepatitis A IgM Nonreactive Nonreactive [facility] Comment:IgM antibodies to DUGGAN V not detected; does not exclude earlyacute or recovered HAV infection. ~Hepatitis B Surface Antibody NONREACTIVE Nonreactive [facility] Comment:Nonreactive: < 8.00 mIU/mL Hepatitis B Core Antibody Reactive Nonreactive [facility] Comment:Presumptive evidence of anti-HBc. Hepatitis C Antibody Nonreactive Nonreactive [facility] Comment:Antibodies to HCV no t detected; does not exclude early acuteHCV infection. 05/12/2024 11:4 6 AM EDT 05/12/2024 11:46 AM EDT Generic External Data Provider LAB BLOOD ORDERAB LES Final Result [facility] [address] [place] [phone] * HPV mRNA E6/E7 w/Reflex to HPV Genotypes 16, 18/45 (02/05/2024 11:20 AM EDT) HPV nRNA E6/E7 Not Detected Not Detected [facility] Comment:Methodology: Transcr iption-Mediated AmplificationThis assay detects E6/E7 viral messenger RNA (mRNA) from 14high-risk HPV types (16,18,31,33,35,39,45,51,52,56,58,59,66,68).Cervical sources are required for HPV testing.If a vaginal source from a patient who has had atotal hysterectomy with removal of cervix wassubmitted, please contact the testing laboratoryfor alternative testing options.For additional information, please refer [email or web address](This link if provided for information/educational purposes only.)THIS TEST WAS PERFORMED AT:[employer] [place] [phone] NAGY MD HPV mRNA E6/E7 TNP [facility] HPV 16 RNA TNP [facility] HPV 18/45 RNA TNP [facility] 02/05/2024 11:2 0 AM EDT 02/07/2024 6:30 AM EDT Sabas Manuel CNM LAB CYTOLOGY ORDERABLES F inal Result [facility] [address] [place] [phone] * Pap Smear (02/05/2024 11:20 AM EDT) Swab Cervix uteri structure / Unknown 02/05/2024 11:20 AM EDT 02/07/2024 6:30 AM EDT Narrative [facility] - 02/23/2024 4:23 PM EDT ----- ------- Name: Shahab Barragan ? Age/Sex: 38/F ? : 1985 Unit#: [id number] ?? Attend Dr: SABAS MANUEL CNM ?Re02/05/24 ?Status: DEP REF ? [facility] ? Disch: ? ----- ------- SPEC : [id number] ? RECD: 02/07/24 ? STATUS: ??SOUT ? REQ NUM: [id number] ? CANDIE: 02/05/24 ? SUBM DR: SABAS MANUEL CNJuli ? ENTERED: ??02/07/24 ?SP TYPE: Pap Smr [...] 66, 68) ? HPV testing performed by [facility], [place], [place]. ??See reference laboratory ?? portion of the EMR for entire report. ?Clinical Information LMP: Unknown date Previous PAP test: 2017, WNL ? Material Received ?? ThinPrep-Cervical ----- ------- Signed (signature on file) Jerri Carlos Hanna 02/23/241622 ? ----- ------- ? END OF REPORT ? us Sabas Manuel [facility] LAB CYTOLOGY ORDERABLES F inal Result [facility] [address] [place] [phone] [phone] * BI Mammogram Screening Tomosynthesis Bilateral (02/01/2024 9:35 AM EDT) Anatomical Region Laterality Modality Breast Bilateral Mammography 02/01/2024 9:35 AM EDT Narrative 02/16/2024 5:00 PM EDT ? [facility] ? [address] ?[place] [address] ? Mammography Report ? Signed ? Patient: Gizli,Meliha ?MR#: [id number] ? : 1985 ?Acct:[id number] ? Age/Sex: 38 / F ?ADM Date: 02/01/24 ? Loc: HO.MAMMO ? Attending Dr: Andria Gomez MD ? Ordering Physician: Andria Gomez MD ?Results: 1Negati ?? ve ? Date of Service: 02/01/24 ?Follow Up: 1 Year From Orig ?? inal Mammogram ? Procedure(s): MM tomosynthesis screening BI ?? Accession Number(s): [id number] ? cc: Andria Gomez MD ? EXAMINATION: [...] MD in OV> ? 02/16/241656 ? DD/ 0935 ? TD/TT: ? Vice President Media Relations: ? Procedure Note Donkatelinter, Image - 02/16/2024 [facility] [address] [place] [address] Mammography Report Signed Patient: Liliane Barragan#: [id number] : 1985Acct:[id number] Age/Sex: 38 / FADM Date: 02/01/24 Loc: HO.MAMMO Attending Dr: Andria Gomez MD Ordering Physician: Andria Gomez MDResults: 1Negati ve Date of Service: 02/01/24Follow Up: 1 Year From Orig inal Mammogram Procedure(s): MM tomosynthesis screening BI Accession Number(s): [id number] cc: Andria Gomez MD EXAMINATION: MM SCREENING [...] in OV> 02/16/24 1657 DD/ 0935 TD/TT: Vice President Media Relations: Andria Gomez MD IMG BI PROCEDURES Edited Result - Final from Last 3 Months or Most Recently Relevant to Health Maintenance Insurance [facility] C3 DENTAL-[facility] MEDICAID STAND ADULT Care Teams Distillery Worker Relationship Specialty Start Date End Date Andria Gomez MD [address] [place] [phone] PCP - General Family Medicine 09/09/13
--- OUTSIDE RECORDS SUMMARY | 2025-01-12 17:48 | XMS_ITS | Encounter Summary ---
Author Organization [employer] Address [address] [facility] [address] 7t [place] [address] Care Team Providers Care Drop Hammer Pile Driver Operator Name Role Phone Andria Gomez MD Primary Care Provider [phone] Reason for Visit * Reason Onset Date Comments pain and root left in gum 06/04/2024 Encounter Details Date Type Department Care Team (Late st Contact Info) Description 06/04/2024 Telephone [facility] ADULT [facility] [address] [place], [place] [phone] Pravin Dykes DDS [address] [place], [place] [phone] pain and root left in gum Social [...] documented as of this encounter Care Teams Drop Hammer Pile Driver Operator Relationship Specialty Start Date End Date Andria Gomez MD [address] [place] [address] PCP - General Family Medicine 09/09/13 documented as of this encounter
[2025-01-12 17:56] LABS: TSH reflex Free T4 0.73 uIU/mL (0.32-4.0)
[2025-01-13 12:43] LABS: Hepatitis B Viral DNA Qn - cp 3.12 Log IU/mL (NOT DETECTED); Hepatitis B Viral DNA Qn-IU/mL 1330 IU/mL (NOT DETECTED)
[2025-01-14 21:29] LABS: Hepatitis BE Antibody REACTIVE (NON-REACTIVE); Hepatitis BE Antigen NON-REACTIVE (NON-REACTIVE)
[2025-01-15 03:58] LABS: Vitamin A 34 mcg/dL (38-98)
== END 2025-01-12 14:52 | disposition home or self-care (01) ==
LOC: HO.LAB 14:51
PROVIDERS: PCP Student in an Organized Health Care Education/Training Program; Visit Provider Internal Medicine Gastroenterology
DX: B18.1 Chronic viral hepatitis B without delta-agent (principal); K75.81 Nonalcoholic steatohepatitis (NASH)
CPT/HCPCS: 36415; 80053; 82306; 84443; 84590; 85025; 86707; 87350; 87517; 99212

== ENCOUNTER 2025-05-18 14:58 | Outpatient (AMB) | payer MEDICAID, SELFPAY ==
--- NOTE | 2025-05-18 15:21 | A.OFFVIS_ITS ---
Vital Signs 05/18/25 15:27 Height 5 ft 2 in Weight 125 lb 10.616 oz BMI 23.0 BP 122/54 L Blood Pressure Location Lt brachial Position Sitting Pulse 71 Intake Visit Reasons: 4 months f/u, can do sooner time Intake Note: Shahab presents in the office as a 4 month follow up CC: Police And Fire Dispatcher Required: Yes Police And Fire Dispatcher Name: Gorkem Allergies ibuprofen Allergy (Severe, Verified 05/18/25 15:27) Unknown almond Allergy (Severe, Uncoded 05/18/25 15:27) Swelling dust Allergy (Mild, Uncoded 05/18/25 15:27) Itchy Eyes pollen Allergy (Mild, Uncoded 05/18/25 15:27) Itchy Eyes HPI HPI 4 months f/u, can do sooner time: Details: 39 yr old f with hx of RA being seen for f/u for Hep B RECAP: she conts on plaquenil for RA Hep b labs positive, Hep d negative LFT normal she says she knew she had hep b from she does not drink alcohol LABS: 01/2022--LFt nml, HBV VL--7700, HBe Ag--neg, Hep C neg LFT nml, HBV VL--7000, Hbe neg US 10/28-- nml INTERIM: she had tender nodules on her shins, eventually went away she has reflux and bad taste in mouth she denies abdominal pain no nausea or vomiting denies rectal bleeding, no melena EXAM: GENERAL: The patient is well developed and nontoxic. VITAL SIGNS:see workflow HEENT: Nonicteric sclerae, PERRLA, EOMI. Oropharynx clear. Moist mucous membranes. Conjunctivae appear well perfused. No thyroid mass. CHEST: Chest wall is nontender. HEART: Regular rate and rhythm without murmurs. LUNGS: Clear to auscultation bilaterally. ABDOMEN: Soft, positive bowel sounds, nontender, no organomegaly.no flank tenderness SKIN: No rash, no excessive bruising, petechiae, or purpura. NEUROLOGIC: Cranial nerves II-XII intact without motor/sensory deficit. A/P: 1/ Chronic Hep B, e Ag neg, nml LFt -- immune tolerant phase. 2/ Chronic anemia, microcytosis, prob thalaseemia 3/ RA: On plaquenil 4/ may have had erythema nodusum PLAN: 1/recheck labs today, make sure not entering immune active phase--get CXR 2/ As noted before---If she has to escalate RA treatment to biologics then she would need treatment to prevent acute hep B flare 3/ liver for monitoring -- [facility] Medical History Knee pain Hypovitaminosis D Chronic hepatitis B Seropositive rheumatoid arthritis Surgical History No pertinent past surgical history Social History Household Members: Spouse and Children Housing: Apartment Are you a primary senior resident care director to a significant other at home: No Do you presently have visiting nurse or other home services: No Alcohol intake: never Patient Tobacco Use Status: Never used Tobacco e-Cigarette/Vaping Use: Never Used service: No Current occupational status: unemployed Physical Exam Vital Signs: Last Vital Signs Pulse 71 05/18/25 15:27 BP 122/54 L 05/18/25 15:27 BMI result Body Mass Index 23.0 Assessment & Plan Assessment & Plan (1) Erythema nodosum: Code(s): L52 - Erythema nodosum Category: Medical Plan: as above (2) Chronic hepatitis B: Comment: Code(s): B18.1 - Chronic viral hepatitis B without delta-agent Category: Medical Plan: as above Orders: Orders XR chest 2V Today L52 - Erythema nodosum Comprehensive Met. Panel Today B18.1 - Chronic viral hepatitis B without delta- agent, K75.81 - Nonalcoholic steatohepatitis (CHENG) Hepatitis B Viral DNA Qn Today B18.1 - Chronic viral hepatitis B without delta- agent Hepatitis BE Antibody Today B18.1 - Chronic viral hepatitis B without delta- agent Hepatitis B Profile Today B18.1 - Chronic viral hepatitis B without delta-agent Complete Blood Count Auto Diff Today B18.1 - Chronic viral hepatitis B without delta-agent Hepatitis BE Antigen Today B18.1 - Chronic viral hepatitis B without delta- agent Hepatitis B Core Antibody Today B18.1 - Chronic viral hepatitis B without delta-agent Medications: New esomeprazole magnesium 20 mg PO DAILY 30 caps 2RF Coding Level of Care Code Est Pt Level 3 (25693) Diagnoses Erythema nodosum L52 Chronic hepatitis B B18.1
[2025-05-18 15:27] VITALS: BP 122/54; PULSE 71; BMI 23.0
--- OUTSIDE RECORDS SUMMARY | 2025-05-18 16:14 | XMS_ITS | Encounter Summary ---
Author Organization [employer] Address [address] [place] [address] 7 [place] [address] Care Team Providers Care Elocution Teacher Name Role Phone Andria Gomez MD Primary Care Provider [phone] Reason for Visit * Reason Onset Date Comments Appointment Request 12/07/2023 Encounter Details Date Type Department Care Team ([facility] Contact Info) Description 12/07/2023 Telephone [facility] [address] [place] [address] [phone] Andria Gomez MD [address] [place] [phone] Appointment Request Social History Tobacco Use Types [...] documented in this encounter Plan of Treatment Upcoming Encounters Date Type Department Care Team ([facility] Contact Info) Description 05/19/2025 11:30 AM EDT Office Visit [facility] [address] [place] [phone] Deandra Pollock CNM [address] [place] [address] 05/19/2025 2:00 PM EDT Office Visit [facility] AD[facility] [address] [place] [address] Hodan Miller documented as of this encounter Visit Diagnoses Not on filedocumented in this encounter Care Teams Elocution Teacher Relationship Specialty Start Date End Date Andria Gomez MD [address] [place] [address] PCP - General Family Medicine 09/09/13 documented as of this encounter
== END 2025-05-18 15:52 | disposition home or self-care (01) ==
LOC: HO.HGI 14:58
PROVIDERS: PCP Student in an Organized Health Care Education/Training Program; Visit Provider Internal Medicine Gastroenterology
DX: L52 Erythema nodosum (principal); B18.1 Chronic viral hepatitis B without delta-agent
CPT/HCPCS: 99213

== ENCOUNTER → 2025-05-18 14:58 | Outpatient (BNVA) | payer MEDICAID, SELFPAY | PROVIDERS: PCP Student in an Organized Health Care Education/Training Program; Visit Provider Internal Medicine Gastroenterology | DX: L52 Erythema nodosum (principal); B18.1 Chronic viral hepatitis B without delta-agent | CPT/HCPCS: 99212 ==

== ENCOUNTER 2025-05-19 12:03 | Outpatient (REF) | payer MEDICAID, SELFPAY ==
--- OUTSIDE RECORDS SUMMARY | 2025-05-19 13:20 | XMS_ITS | Encounter Summary ---
Author Organization [employer] Address [address] [place] [address] 7 [place] [address] Care Team Providers Care Aircraft Sales Representative Name Role Phone Andria Gomez MD Primary Care Provider [phone] Reason for Visit * Reason Onset Date Comments Appointment Request 12/07/2023 Encounter Details Date Type Department Care Team (Late Contact Info) Description 12/07/2023 Telephone [facility] [address] [place], [place] [phone] Andria Gomez MD [address] [place] [address] Appointment Request Social History Tobacco Use Types [...] Upcoming Encounters Date Type Department Care Team (Late Contact Info) Description 05/19/2025 2:00 PM EDT Office Visit [facility] ADULT D[facility]AL [address] [place] [address] Hodan Miller documented as of this encounter Visit Diagnoses Not on filedocumented in this encounter Care Teams Aircraft Sales Representative Relationship Specialty Start Date End Date Andria Gomez MD [address] [place] [address] PCP - General Family Medicine 09/09/13 documented as of this encounter
[2025-05-19 13:41] LABS: MANUAL DIFF FLAG NO
[2025-05-19 14:00] LABS: Hematocrit 31.9 % (37.0-47.0); Hemoglobin 10.5 g/dl (12.0-16.0); Imm Gran Abs Auto 0.03 X10*3/uL (0.00-0.03); Imm Gran Pct Auto 0.5 % (0.0-0.4); Lymphocytes Absolute Auto 1.0 X10*3/uL (1.2-4.9); Mean Corpuscular HGB Conc 32.9 g/dl (31.0-35.0); Mean Corpuscular Hemoglobin 22.8 pg (27.0-33.0); Mean Corpuscular Volume 69.3 fL (80.0-98.0); NRBC Abs Auto 0.000 X10*3/uL (0.0-0.012); NRBC Pct Auto 0.0 /100WBC (0.0-0.2); Platelet Count 241 X10*3/uL (160-400); Red Blood Count 4.60 X10*6/uL (4.20-5.50); White Blood Count 6.3 X10*3/uL (4.8-10.8)
[2025-05-19 14:16] LABS: Alanine Aminotransferase 25 U/L (0-31); Albumin Level 4.7 g/dL (3.5-5.0); Alkaline Phosphatase 47 U/L (39-117); Anion Gap 9 (12-20); Aspartate Amino Transferase 27 U/L (5-31); Blood Urea Nitrogen 14 mg/dL (9-16); Calcium 8.6 mg/dL (8.4-10.2); Carbon Dioxide 25 mmol/L (22-29); Chloride 110 mmol/L (96-108); Estimated Glomerular Filt Rate > 60; Potassium 3.6 mmol/L (3.3-5.1); Sodium 140 mmol/L (135-145); Total Protein 7.9 g/dL (6.5-8.0)
[2025-05-19 14:53] LABS: HBS Num1 0.02 mIU/mL (0-7.99); HBc Num1 10.88 S/CO (0.00-0.79); HBsAGNum1 4955.08 S/CO (0.00-0.99); ~Hepatitis B Surface Antibody NONREACTIVE (Nonreactive)
[2025-05-20 03:43] LABS: Follicle Stimulating Hormone 6.3 mIU/mL
[2025-05-20 04:34] LABS: HBc Num2 10.11 S/CO; HBc Num3 10.95 S/CO
[2025-05-20 04:36] LABS: HBsAGNum2 Reactive; HBsAGNum3 Reactive; Hepatitis B Surface Antigen Retest CNFM (Negative)
[2025-05-20 15:09] LABS: Hepatitis B Viral DNA Qn - cp 3.17 Log IU/mL (NOT DETECTED); Hepatitis B Viral DNA Qn-IU/mL 1470 IU/mL (NOT DETECTED)
[2025-05-21 05:09] LABS: Hepatitis B Core Antibody IgM NON-REACTIVE (NON-REACTIVE)
[2025-05-26 02:13] LABS: Estradiol Ultra Sensitive 78 pg/mL
== END 2025-05-19 12:04 | disposition home or self-care (01) ==
LOC: HO.HHCL 12:03
PROVIDERS: PCP Student in an Organized Health Care Education/Training Program; Referring Provider Advanced Practice Midwife; Visit Provider Internal Medicine Gastroenterology
DX: B18.1 Chronic viral hepatitis B without delta-agent (principal); K75.81 Nonalcoholic steatohepatitis (NASH); N91.5 Oligomenorrhea, unspecified
CPT/HCPCS: 36415; 80053; 82670; 83001; 84146; 85025; 86704; 86705; 86706; 86707; 87340; 87350; 87517

== ENCOUNTER 2025-05-20 09:21 | Outpatient (REF) | payer MEDICAID, SELFPAY ==
--- NOTE | ~2025-05-20 | XR_ITS ---
EXAMINATION: XR CHEST 2 VIEWS HISTORY: L52 - Erythema nodosum COMPARISON: There are no prior studies available for comparison. FINDINGS: PA and lateral views of the chest are submitted. The lungs are expanded and clear. There is no pleural effusion, pneumothorax, or pulmonary vascular congestion. The heart is normal in size. The bones are intact. XR/XR chest 2V IMPRESSION: Normal examination of the chest. Electronically signed by: Arian Felton MD 05/20/2025 10:00 AM EDT
--- OUTSIDE RECORDS SUMMARY | 2025-05-20 09:43 | XMS_ITS | Encounter Summary ---
Author Organization [employer] Address [address] [place] [address] [address] [place] [address] Care Team Providers Care Safety Director Name Role Phone Andria Gomez MD Primary Care Provider [phone] Reason for Visit * Reason Onset Date Comments Appointment Request 12/07/2023 Encounter Details Date Type Department Care Team (Late st Contact Info) Description 12/07/2023 Telephone [facility] [address] [place], [place] [phone] Andria Gomez MD [address] [place], [place] [phone] Appointment Request Social History Tobacco Use Types [...] Encounters Date Type Department Care Team (Late st Contact Info) Description 06/11/2025 10:00 AM EDT Office Visit [facility] ADULT D[facility] [address] [place] [address] Suresh Meadows DMD [address] [place] [address] 11/20/2025 1:00 PM EST Office Visit [facility] ADULT DENT[facility] [address] [place] [address] Hodan Miller documented as of this encounter Visit Diagnoses Not on filedocumented in this encounter Care Teams Safety Director Relationship Specialty Start Date End Date Andria Gomez MD [address] [place] [phone] PCP - General Family Medicine 09/09/13 documented as of this encounter
== END 2025-05-20 09:22 | disposition home or self-care (01) ==
LOC: HO.XRAY 09:21
PROVIDERS: PCP Student in an Organized Health Care Education/Training Program; Visit Provider Internal Medicine Gastroenterology
DX: L52 Erythema nodosum (principal)
CPT/HCPCS: 71046

== ENCOUNTER → 2025-05-20 09:26 | Outpatient (BNV) | payer MEDICAID, SELFPAY | PROVIDERS: PCP Student in an Organized Health Care Education/Training Program; Visit Provider Radiology Diagnostic Radiology | DX: L52 Erythema nodosum (principal) | CPT/HCPCS: 71046 ==

== ENCOUNTER 2025-05-26 14:22 | Outpatient (REF) | payer MEDICAID, SELFPAY ==
--- NOTE | ~2025-05-26 | US_ITS ---
EXAMINATION: US PELVIS CLINICAL INFORMATION: Scanty menses COMPARISON: None available. TECHNIQUE: Ultrasound of the pelvis is performed using both transabdominal and transvaginal transducers along with Doppler. Transvaginal imaging is performed due to inadequate visualization transabdominally. FINDINGS: UTERUS: The uterus is anteverted, anteflexed, and measures 10.0 x 4.1 x 5.8 cm. Normal cervix. The double wall endometrial thickness is 7 mm. Trilaminar appearance. The uterus is smooth in contour and has minimally heterogeneous myometrial echogenicity. There are 2 tiny fibroids: A tiny intramural fibroid in the dorsal fundus measures 0.6 x 0.5 x 0.7 cm. A subserosal right mid uterine segment fibroid measures 2.0 x 1.5 x 1.9 cm. ADNEXA: Both ovaries are visualized. There is normal color flow to the adnexa. There is no ovarian torsion. There is no pelvic ascites or fluid collection. No adnexal masses. Right ovary measures 2.4 x 1.9 x 2.4 cm. Volume = 5.8 mL. Normal sonographic appearance. Corpus albicans present. Left ovary measures 2.9 x 1.8 x 1.9 cm. Volume = 5.2 mL. Normal sonographic appearance. Corpus luteal cyst present. US/US pelvic and transvaginal IMPRESSION: 1. Normal endometrium measuring 7 mm with trilaminar appearance. 2. There are 2 small myometrial fibroids, the smaller measures 0.6 x 0.5 x 0.7 cm in the dorsal fundus, and the larger is subserosal measuring 2.0 x 1.5 x 1.9 cm in the right mid uterine segment. 3. Normal ovaries bilaterally. No adnexal masses. Electronically signed by: Markus Broderick MD 05/26/2025 03:45 PM EDT
--- OUTSIDE RECORDS SUMMARY | 2025-05-26 15:38 | XMS_ITS | Encounter Summary ---
Author Organization [employer] Address [address] [place] [address] [address] [place] [address] Care Team Providers Care Guide Foreign Tour Name Role Phone Andria Gomez MD Primary Care Provider [phone] Reason for Visit * Reason Onset Date Comments Appointment Request 12/07/2023 Encounter Details Date Type Department Care Team (Late st Contact Info) Description 12/07/2023 Telephone [facility] [address] [place], [place] [phone] Andria Gomez MD [address] [place], [place] [phone] Appointment Request Social History Tobacco Use Types [...] Description 06/11/2025 10:00 AM EDT Office Visit [facility] [address] [place] [address] Suresh Meadows DMD [address] [place] [address] 11/20/2025 1:00 PM EST Office Visit [facility] AD[facility] [address] [place] [address] Hodan Miller documented as of this encounter Visit Diagnoses Not on filedocumented in this encounter Care Teams Guide Foreign Tour Relationship Specialty Start Date End Date Andria Gomez MD [address] [place] [id number] PCP - General Family Medicine 09/09/13 documented as of this encounter
== END 2025-05-26 14:23 | disposition home or self-care (01) ==
LOC: HO.US 14:22
PROVIDERS: PCP Student in an Organized Health Care Education/Training Program; Visit Provider Advanced Practice Midwife
DX: N91.5 Oligomenorrhea, unspecified (principal)
CPT/HCPCS: 76830; 76856

== ENCOUNTER → 2025-05-26 14:25 | Outpatient (BNV) | payer MEDICAID, SELFPAY | PROVIDERS: PCP Student in an Organized Health Care Education/Training Program; Visit Provider Radiology Diagnostic Radiology | DX: D25.1 Intramural leiomyoma of uterus (principal) | CPT/HCPCS: 76830; 76856 ==

== ENCOUNTER 2025-07-27 09:26 | Outpatient (REF) | payer MEDICAID, SELFPAY ==
--- NOTE | ~2025-07-27 | US_ITS ---
EXAMINATION: US ABDOMEN LIMITED WITH LIVER ELASTOGRAPHY HISTORY: B18.1 - Chronic viral hepatitis B without delta-agent TECHNIQUE: Real-time grayscale ultrasound imaging of the right upper quadrant was performed and images were reviewed. COMPARISON: Comparison is made with the prior examination dated 10/27/2024. FINDINGS: Liver: The right lobe of the liver measures 15.2 cm in size. The left lobe of the liver measures 10.8 cm in size. The liver demonstrates normal homogeneous echotexture. No focal mass or intrahepatic biliary ductal dilatation is identified. There is normal hepatopedal flow in the portal vein. Ultrasound elastography of the liver was performed with 10 separate measurements of the liver parenchyma with the patient in the supine position. Measurements were obtained approximately 2 cm below Faviola's capsule and perpendicular to the capsule. The median shear wave velocity is 1.50 m/s (previously 1.39 m/s). The interquartile range/median (IQR/median) is 0.03. Gallbladder and biliary tree: The gallbladder is unremarkable, without evidence of calculi, wall thickening, or pericholecystic fluid. There is no sonographic Ordonez sign. The common bile duct is normal in caliber measuring 2 mm. Right Kidney: The right kidney measures 11.5 cm in length. The right kidney is unremarkable, without evidence of masses, hydronephrosis, or calculi. Pancreas: The pancreatic head, neck, and body are unremarkable. The pancreatic tail is obscured by bowel gas. Abdominal aorta and inferior vena cava: The visualized portions of the abdominal aorta and inferior vena cava are normal in caliber. There is no free fluid in the right upper quadrant. US/US abdomen dockery w elastography IMPRESSION: Unremarkable right upper quadrant ultrasound. The median shear wave velocity in the liver is 1.50 m/s, corresponding to a median liver stiffness of 6.94 kPa. The IQR/median value is 0.03. This is indicative of a quality data set. Findings are indicative of a low elastography value which rules out advanced chronic liver disease in asymptomatic patients. REFERENCE: Society of Radiologists in Ultrasound Liver Stiffness Thresholds (2019): LIVER STIFFNESS THRESHOLDS: *Shear wave velocity less than 1.3 m/s (Liver Stiffness equal or less than 5 kPa): High probability of being normal. *Shear wave velocity less than 1.7 m/s (Liver Stiffness less than 9 kPa): In the absence of other known clinical signs, rules out compensated advanced chronic liver disease. *Shear wave velocity between 1.7-2.1 m/s (Liver Stiffness 9-13 kPa): Suggestive of compensated advanced chronic liver disease but need further test for confirmation. *Shear wave velocity between 2.1-2.4 m/s (Liver Stiffness 13-17 kPa): Rules in compensated advanced chronic liver disease. *Shear wave velocity greater than 2.4 m/s (Liver Stiffness over 17 kPa): Suggestive of clinically significant portal hypertension. QUALITY OF DATA SET: *IQR/Median value equal or less than 0.15 implies a quality data set. *IQR/Median value over 0.15 implies a poor quality data set. SIGNIFICANT CHANGE FROM PRIOR EXAM: Significant change if liver stiffness measurement is 10% or greater from prior exam. OTHER CONSIDERATIONS: The stage of liver fibrosis may be overestimated in the setting of acute hepatitis, liver inflammation, elevated liver function tests, hepatic vascular congestion, obstructive cholestasis, non-fasting state, and infiltrative diseases such as amyloidosis and lymphoma. In some patients with NAFLD, the liver stiffness thresholds for compensated advanced chronic liver disease may be lower. In causes other than viral hepatitis and NAFLD, liver stiffness thresholds are not well established. Electronically signed by: Arian Felton MD 07/27/2025 10:24 AM EDT
--- OUTSIDE RECORDS SUMMARY | 2025-07-27 11:08 | XMS_ITS | Clinical Summary ---
Author Organization [employer] Address [address] [place] [address] [address] [place] [address] Care Team Providers Care Horse Groomer Name Role Phone Janice Wood DAE Primary Care Provider [phone] Allergies Active Allergy Reactions Criticality Noted Date Comments Dust Mite Extract 02/05/2024 Gramineae Pollens 09/17/2023 Ibuprofen-Famotidine 03/20/2025 Medications hydroxychloro quine (Plaquenil) 200 MG tablet Take 1 tablet by mouth in the morning. 07/02/20 23 Active cyanocobalami n (Vitamin B-12) 1000 MCG tablet Take 1,000 mcg by mouth in the morning. 06/23/20 23 Active biotin 10 MG capsule Take 1 capsule (10 mg) by mouth 2 times daily. 30 capsule 11 01/16/20 24 Active folic acid (Folvite) 1 MG tablet TAKE 1 TABLET BY MOUTH EVERY DAY 90 tablet 6 03/10/20 24 Active diphenhydrAMI NE (BENADryl) 25 MG tablet Take 1 tablet (25 mg) by mouth every 8 (eight) hours if needed (mild allergic reaction). 30 tablet 3 06/10/20 24 Active Additional Information Patient not taking.Reported on 06/11/2025 Sodium Fluoride 1.1 % cream [place] teeth for 2 minutes, morning and night. Spit, do not rinse. Do not eat or drink anything for 30 minutes following use. 112 g 3 03/20/20 25 Active estradiol (Estrace) 0.1 MG/GM vaginal cream 1g vaginally x 14d, then twice weekly thereafter 45 g 2 05/19/20 25 Active Sodium Fluoride 1.1 % creamIndicati ons:Dental caries [place] teeth for 2 minutes, morning and night. Spit, do not rinse. Do not eat or drink anything for 30 minutes following use. 112 g 3 05/20/20 25 Active albuterol 108 (90 Base) MCG/ACT inhalerIndica tions:Acute cough INHALE 2 PUFFS BY MOUTH EVERY 4 HOURS NEEDED FOR WHEEZING 18 g 07/01/20 25 Active fexofenadine (Kari) 180 MG tablet TAKE 1 TABLET BY MOUTH EVERY DAY NEEDED FOR ALLERGIES 90 tablet 2 07/01/20 25 Active chlorhexidine (Peridex) 0.12 % solution Swish 15 mL morning and night for 1 minute. Spit, do not swallow. Do not eat or drink for 30 minutes following use. 473 mL 07/09/20 25 Active albuterol 108 (90 Base) MCG/ACT inhalerIndica tions:Acute cough Inhale 2 puffs every 4 (four) hours if needed for wheezing. 18 g 09/17/20 23 025 Discontinued(Re order (will not trigger notification to Pharmacy)) chlorhexidine (Peridex) 0.12 % solution Swish 15 mL morning and night for 1 minute. Spit, do not swallow. Do not eat or drink for 30 minutes following use. 473 mL 04/04/20 24 025 Discontinued(Re order (will not trigger notification to Pharmacy)) fexofenadine (Kari) 180 MG tablet Take 1 tablet (180 mg) by mouth if needed each day (Allergies). 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 09/17/2023 025 Encounters Date Type Department Care Team Description 07/27/2025 Orders Only [facility] External Provider, [facility] 07/09/2025 9:00 AM EDT Office Visit [facility] [address] [place] [address] Suresh Meadows DMD 07/01/[address] [address] Janice Wood CNP Acute cough 06/18/2025 1:00 PM EDT Office Visit [facility] [address] [place] [address] Suresh Meadows DMD Dental caries (Primary Dx) 06/11/2025 10:00 AM EDT Office Visit [facility] [address] [place] [address] Suresh Meadows DMD Secondary dental caries associated with failed or defective dental oriental orthodox (Primary Dx); Dental caries 05/26/2025 Results Follow-Up [address] [address] Sabas Manuel CNM FSH, Estradiol, Prolactin, US Pelvis Transvaginal 05/19/2025 2:00 PM EDT Office Visit [facility] [address] [place] [address] Hodan Miller Dental calculus (Primary Dx); Defective dental oriental orthodox; Dental caries 05/19/2025 11:30 AM EDT Office Visit [address] [address] Sabas Manuel CNM Scanty menstruation (Primary Dx); Encounter for screening mammogram for breast cancer 05/19/2025 Orders Only GENERIC EXTERNAL DATA DEPARTMENT Provider, Generic External Data 05/19/2025 Travel 05/18/[address] [address] Sabas Manuel CNM CHART PREP 05/14/2025 Telephone [facility] [address] [place] [address] Hodan Miller confirmed rescheduled date 05/14/2025 Telephone [facility] [address] [place] [address] Hodan Miller from Last 3 Months Immunizations Immunization Administration Dates Next Due Influenza, IIV3, injectable [...] housing situation today? I have ramiro sullivan 05/19/[address] you li ve. Do you have problems with any of the following? None of the above 05/19/2025 Food Insecurity Answer Date Recorded Within the past 12 months, y ou worried that your food would run out before you got money to buy more: Never True 05/19/2025 Within the past 12 months,th e food you bought just didn't last and you didn't have enough money to get more: Never True Transportation Answer Date Recorded In the past 12 months, has l ack of transportation kept you from medical appts, meetings, work or from getting things needed for daily living? No 05/19/2025 Utilities Answer Date Recorded In the past 12 months, has t he electric, gas, oil or water company threatened to shut off services in your home? No 05/19/2025 Depression Answer Date Recorded Patient Health Questionnaire-2 Score 0 01/16/2024 Internet Access Answer Date Recorded Internet Access Q1 Yes 05/19/2025 Internet Access Q2 Not on file 05/19/2025 Comments No Intention Date Recorded No desire to become (finding) 0 05/19/2025 Sex and Gender Information Value Date Recorded Sex Assigned at Female 09/04/2022 10:25 AM EDT Legal Sex Female 10:25 AM EDT Gender Identity Female 09/04/2022 10:25 AM EDT Sexual Orientation Straight 09/04/2022 10 :25 AM EDT Last Filed Vital Signs Vital Sign Reading Time Taken Comments Blood Pressure 80/58 06/18/2025 1:02 PM EDT Pulse 79 05/19/2025 11:37 AM EDT Temperature 37.1 C (98.7 F) 07/02/2024 10:36 AM EDT Respiratory Rate 16 05/19/2025 11:37 AM EDT Oxygen Saturation 100% 07/02/2024 10:36 AM EDT Inhaled Oxygen Concentration - - Weight 59 kg (130 lb) 05/19/2025 11:37 AM EDT Height 157.5 cm (5' 2 ) 05/19/2025 11:37 AM EDT Body Mass Index 23.78 05/19/2025 11:37 AM EDT Plan of Treatment Upcoming Encounters Date Type Department Care Team (Late st Contact Info) Description 07/28/2025 10:00 AM EDT Office Visit [facility] [address] [place] [address] Suresh Meadows DMD [address] [place] [address] 11/20/2025 1:00 PM EST Office Visit [facility] [address] [place] [address] Hodan Miller Health Maintenance Due Date Last Done Comments HIV Screening 1985 HPV Vaccines (1 - 3-dose series) 1998 Hepatitis A Vaccines (1 of 2 - Risk 2-dose series) 2002 Pneumococcal Vaccine: Pediatrics (0 to 5 Years) and At-Risk Patients (6 to 49) Years (1 of 2 - PCV) 2002 Depression Screening 01/15/2025 01/16/2024, 01/16/20 24 Mammogram 01/31/2025 02/01/2024 COVID-19 Vaccine ( season) 2025 03/03/2021, 02/03/2021 Influenza Vaccine (#1) 2025 9, 07/21/2019, 09/10/2012, Additional history exists Dental Oral Exam 11/20/2025 05/19/2025, , 06/06/2017, Additional history exists Dental Prophylaxis 11/20/2025 05/19/2025, 0 05/01/2024, 06/06/2017, Additional history exists Alcohol/Substance Use Screening 05/19/2026 05/19/2025 Disability Screening 05/19/2026 05/19/2025 Family Planning (PISQ) 05/19/2026 05/19/2025 SDOH Screening 05/19/2026 05/19/2025 Dental X-Ray: Bitewings 05/20/2026 05/19/20 25, 03/20/2025, 05/01/2024, Additional history exists Tobacco Screening 07/09/2026 07/09/2025 Dental X-Ray: Full Mouth 04/05/2027 024, 06/06/2017, 09/28/2015 Cervical Cancer Screening 02/04/2029 HPV/Cotest 02/04/2029 02/05/2024, 02/13/2017 Pap Smear 02/04/2029 02/05/2024 DTaP/Tdap/Td Vaccines (4 - Td or Tdap) 05/05/2029 05/05/2019, 01/14/2018, 02/12/2013 Zoster Vaccines (1 of 2) 2033 RSV Patients and Patients Aged 60 years or older (1 - 1-dose 75+ series) 2058 Hepatitis C Screening Completed 05/12/2024 , 01/16/2024, 01/13/2022, Additional history exists HIB Vaccines Aged Out No longer eligi ble based on patient's age to complete this topic Hepatitis B Vaccines Discontinued IPV Vaccines Aged Out No longer eligi ble based on patient's age to complete this topic Meningococcal B Vaccine Aged Out No l onger eligible based on patient's age to complete [...] Comments US ABDOMEN OROZCO W ELASTOGRAPHY Routine 07/27/2025 9:46 AM EDT NO CHARGE VISIT Routine 07/09/2025 9:00 AM EDT CASE PRESENTATION, DETAILED AND EXTENSIVE TREATMENT PLANNING Routine 06/18/2025 1:00 PM EDT Dental caries 14 MO RESIN-BASED COMPOSITE - 2 SURF, POSTERIOR Routine 06/18/2025 1:00 PM EDT Dental caries 13 DO RESIN-BASED COMPOSITE - 2 SURF, POSTERIOR Routine 06/18/2025 1:00 PM EDT Dental caries CASE PRESENTATION, DETAILED AND EXTENSIVE TREATMENT PLANNING Routine 06/11/2025 10:00 AM EDT Secondary dental caries associated with failed or defective dental oriental orthodox Dental caries 20 DO RESIN-BASED COMPOSITE - 2 SURF, POSTERIOR Routine 06/11/2025 10:00 AM EDT Secondary dental caries associated with failed or defective dental oriental orthodox 19 MO RESIN-BASED COMPOSITE - 2 SURF, POSTERIOR Routine 06/11/2025 10:00 AM EDT Dental caries 18 MO RESIN-BASED COMPOSITE - 2 SURF, POSTERIOR Routine 06/11/2025 10:00 AM EDT Secondary dental caries associated with failed or defective dental oriental orthodox US PELVIS TRANSVAGINAL Urgent 05/26/2025 2:45 PM EDT Scanty menstruation XR CHEST 2 VIEWS Routine 05/20/2025 9:30 AM EDT PERIODIC ORAL EVALUATION - ESTABLISHED PATIENT Routine 05/19/2025 2:00 PM EDT Defective dental oriental orthodox Dental caries INTRAORAL - PERIAPICAL EACH ADDITIONAL RADIOGRAPHIC IMAGE Routine 05/19/2025 2:00 PM EDT Defective dental oriental orthodox Dental caries INTRAORAL - PERIAPICAL FIRST RADIOGRAPHIC IMAGE Routine 05/19/2025 2:00 PM EDT Defective dental oriental orthodox Dental caries BITEWINGS - 4 RADIOGRAPHIC IMAGES Routine 05/19/2025 2:00 PM EDT Defective dental oriental orthodox Dental caries ORAL HYGIENE INSTRUCTIONS Routine 05/19/2025 2:00 PM EDT Defective dental oriental orthodox Dental caries CASE PRESENTATION, DETAILED AND EXTENSIVE TREATMENT PLANNING Routine 05/19/2025 2:00 PM EDT Defective dental oriental orthodox Dental caries PROPHYLAXIS - ADULT Routine 05/19/2025 2 :00 PM EDT Defective dental oriental orthodox Dental caries HEPATITIS BE ANTIGEN Routine 05/19/2025 12:08 PM EDT HEPATITIS BE ANTIBODY Routine 05/19/2025 12:08 PM EDT HEPATITIS B CORE ANTIBODY (IGM) Routine 05/19/2025 12:08 PM EDT HEPATITIS B VIRUS DNA, QN, REAL TIME PCR Routine 05/19/2025 12:08 PM EDT HEPATITIS B PROFILE Routine 05/19/2025 1 2:08 PM EDT COMPREHENSIVE METABOLIC PANEL Routine 05/19/2025 12:08 PM EDT CBC WITH AUTO DIFFERENTIAL Routine 05/19/2025 12:08 PM EDT PROLACTIN Routine 05/19/2025 12:08 PM EDT Scanty menstruation ESTRADIOL Routine 05/19/2025 12:08 PM EDT Scanty menstruation FSH Routine 05/19/2025 12:08 PM EDT Scanty menstruation 19 DO AMALGAM FILLING Routine 05/19/2025 12:00 AM EDT 5 O COMPOSITE FILLING Routine 05/19/2025 12:00 AM EDT 18 MO AMALGAM FILLING Routine 05/19/2025 12:00 AM EDT HEPATITIS PANEL, GENERAL Routine 05/12/2024 11:46 AM EDT PANORAMIC RADIOGRAPHIC IMAGE Routine 04/04/2024 2:30 PM EDT HPV MRNA E6/E7 REFLEX TO HPV 16, 18/45 Routine 02/05/2024 11:20 AM EDT PAP SMEAR Routine 02/05/2024 11:20 AM EDT Cervical cancer screening BI MAMMOGRAM SCREENING TOMOSYNTHESIS BILATERAL Routine 02/01/2024 9:35 AM EDT from Last 3 Months or Most Recently Relevant to Health Maintenance Results * US ABDOMEN OROZCO W ELASTOGRAPHY (07/27/2025 9:46 AM EDT) Anatomical Region Laterality Modality Abdomen Ultrasound 07/27/2025 9:46 AM EDT Narrative 07/27/2025 10:[address] [address] Ultrasound Report Signed Patient: Shahab Barragan MR#: [id number] : 1985 Acct:[id number] Age/Sex: 39 / F ADM Date: 07/27/25 Loc: .US Attending Dr: Cory Sanchez MD Ordering Physician: Cory Sanchez MD Date of Service: 07/27/25 Procedure(s): US abdomen orozco w elastography Accession Number(s): [id number] cc: Cory Sanchez MD; Andria Gomez MD Reason for Exam: B18.1 - Chronic viral hepatitis B without delta-agent EXAMINATION: US ABDOMEN LIMITED WITH LIVER ELASTOGRAPHY HISTORY: B18.1 - Chronic viral hepatitis B without delta-agent TECHNIQUE: Real-time grayscale ultrasound imaging of the right upper quadrant was performed and images were reviewed. COMPARISON: Comparison is made with the prior examination dated 10/27/2024. FINDINGS: Liver: The right lobe of the liver measures 15.2 cm in size. The left lobe of the liver measures 10.8 cm in size. The liver demonstrates normal homogeneous echotexture. No focal mass or intrahepatic biliary ductal dilatation is identified. There is normal hepatopedal flow in the portal vein. Ultrasound elastography of the liver was performed with 10 separate measurements of the liver parenchyma with the patient in the supine position. Measurements were obtained approximately 2 cm below Faviola's capsule and perpendicular to the capsule. The median shear wave velocity is 1.50 m/s (previously 1.39 m/s). The interquartile range/median (IQR/median) is 0.03. Gallbladder and biliary tree: The gallbladder is unremarkable, without evidence of calculi, wall thickening, or pericholecystic fluid. There is no sonographic Ordonez sign. The common bile duct is normal in caliber measuring 2 mm. Right Kidney: The right kidney measures 11.5 cm in length. The right kidney is unremarkable, without evidence of masses, hydronephrosis, or calculi. Pancreas: The pancreatic head, neck, and body are unremarkable. The pancreatic tail is obscured by bowel gas. Abdominal aorta and inferior vena cava: The visualized portions of the abdominal aorta and inferior vena cava are normal in caliber. There is no free fluid in the right upper quadrant. US/US abdomen orozco w elastography IMPRESSION: Unremarkable right upper quadrant ultrasound. The median shear wave velocity in the liver is 1.50 m/s, corresponding to a median liver stiffness of 6.94 kPa. The IQR/median value is 0.03. This is indicative of a quality data [...] established. Electronically signed by: Arian Felton MD 07/27/2025 10:24 AM EDT Dictated By: Arian Felton MD Signed By: <Electronically signed by Arian Felton MD in OV> 07/27/25 1024 DD/ 0946 TD/TT: 07/27/25 0958 Chainstitch Tunnel Elastic Operator: Procedure Note Donotuseinterpreter, Image - 07/27/[address] [address] Ultrasound Report Signed Patient: Liliane Barragan#: [id number] : 1985Acct:[id number] Age/Sex: 39 / FADM Date: 07/27/25 Loc: HO.US Attending Dr: Cory Sanchez MD Ordering Physician: Cory Sanchez MD Date of Service: 07/27/25 Procedure(s): US abdomen orozco w elastography Accession Number(s): [id number] cc: Cory Sanchez MD; Andria Gomez MD Reason for Exam: B18.1 - Chronic viral hepatitis B without delta-agent EXAMINATION: US ABDOMEN LIMITED WITH LIVER ELASTOGRAPHY HISTORY: B18.1 - Chronic viral hepatitis B without delta-agent TECHNIQUE: Real-time grayscale ultrasound imaging of the right upper quadrant was performed and images were reviewed. COMPARISON: Comparison is made with the prior examination dated 10/27/2024. FINDINGS: Liver: The right lobe of the liver measures 15.2 cm in size. The left lobe of the liver measures 10.8 cm in size. The liver demonstrates normal homogeneous echotexture. No focal mass or intrahepatic biliary ductal dilatation is identified. There is normal hepatopedal flow in the portal vein. Ultrasound elastography of the liver was performed with 10 separate measurements of the liver parenchyma with the patient in the supine position. Measurements were obtained approximately 2 cm below Faviola's capsule and perpendicular to the capsule. The median shear wave velocity is 1.50 m/s (previously 1.39 m/s). The interquartile range/median (IQR/median) is 0.03. Gallbladder and biliary tree: The gallbladder is unremarkable, without evidence of calculi, wall thickening, or pericholecystic fluid. There is no sonographic Ordonez sign. The common bile duct is normal in caliber measuring 2 mm. Right Kidney: The right kidney measures 11.5 cm in length. The right kidney is unremarkable, without evidence of masses, hydronephrosis, or calculi. Pancreas: The pancreatic head, neck, and body are unremarkable. The pancreatic tail is obscured by bowel gas. Abdominal aorta and inferior vena cava: The visualized portions of the abdominal aorta and inferior vena cava are normal in caliber. There is no free fluid in the right upper quadrant. US/US abdomen orozco w elastography IMPRESSION: Unremarkable right upper quadrant ultrasound. The median shear wave velocity in the liver is 1.50 m/s, corresponding to a median liver stiffness of 6.94 kPa. The IQR/median value is 0.03. This is indicative of a quality data [...] established. Electronically signed by: Arian Felton MD 07/27/2025 10:24 AM EDT Dictated By: Arian Felton MD Signed By: <Electronically signed by Arian Felton MD in OV> 07/27/25 1024 DD/ 0946 TD/TT: 07/27/25 0958 Chainstitch Tunnel Elastic Operator: us [facility] External Provider IMG US PROCEDURES Edited Result - Final * US Pelvis Transvaginal (05/26/2025 2:45 PM EDT) Anatomical Region Laterality Modality Pelvis Ultrasound 05/26/2025 2:45 PM EDT Narrative 05/26/2025 3:48 PM EDT [place] [address] Ultrasound Report Signed Patient: Shahab Barragan MR#: [id number] : 1985 Acct:[id number] Age/Sex: 39 / F ADM Date: 05/26/25 Loc: HO.US Attending Dr: Sabas Manuel CNM Ordering Physician: SABAS MANUEL CNM Date of Service: 05/26/25 Procedure(s): US pelvic and transvaginal Accession Number(s): [id number] cc: Andria Gomez MD; SABAS MANUEL CNM EXAMINATION: US PELVIS CLINICAL INFORMATION: Scanty menses COMPARISON: None available. TECHNIQUE: Ultrasound of the pelvis is performed using both transabdominal and transvaginal transducers along with Doppler. Transvaginal imaging is performed due to inadequate visualization transabdominally. FINDINGS: UTERUS: The uterus is anteverted, anteflexed, and measures 10.0 x 4.1 x 5.8 cm. Normal cervix. The double wall endometrial thickness is 7 mm. Trilaminar appearance. The uterus is smooth in contour and has minimally heterogeneous myometrial echogenicity. There are 2 tiny fibroids: A tiny intramural fibroid in the dorsal fundus measures 0.6 x 0.5 x 0.7 cm. A subserosal right mid uterine segment fibroid measures 2.0 x 1.5 x 1.9 cm. ADNEXA: Both ovaries are visualized. There is normal color flow to the adnexa. There is no ovarian torsion. There is no pelvic ascites or fluid collection. No adnexal masses. Right ovary measures 2.4 x 1.9 x 2.4 cm. Volume = 5.8 mL. Normal sonographic appearance. Corpus albicans present. Left ovary measures 2.9 x 1.8 x 1.9 cm. Volume = 5.2 mL. Normal sonographic appearance. Corpus luteal cyst present. US/US pelvic and transvaginal IMPRESSION: 1. Normal endometrium measuring 7 mm with trilaminar appearance. 2. There are 2 small myometrial fibroids, the smaller measures 0.6 x 0.5 x 0.7 cm in the dorsal fundus, and the larger is subserosal measuring 2.0 x 1.5 x 1.9 cm in the right mid uterine segment. 3. Normal ovaries bilaterally. No adnexal masses. Electronically signed by: Markus Broderick MD 05/26/2025 03:45 PM EDT RP Dictated By: Markus Broderick MD Signed By: <Electronically signed by Markus Broderick MD in OV> 05/26/25 1545 DD/ 1445 TD/TT: 05/26/25 1502 Chainstitch Tunnel Elastic Operator: Procedure Note Donotuseinterpreter, Image - 05/26/2025 [place] [address] Ultrasound Report Signed Patient: Liliane Barragan#: [id number] : 1985Acct:[id number] Age/Sex: 39 / FADM Date: 05/26/25 Loc: HO.US Attending Dr: Sabas Manuel CNM Ordering Physician: SABAS MANUEL CNM Date of Service: 05/26/25 Procedure(s): US pelvic and transvaginal Accession Number(s): [id number] cc: Andria Gomez MD; SABAS MANUEL CNM EXAMINATION: US PELVIS CLINICAL INFORMATION: Scanty menses COMPARISON: None available. TECHNIQUE: Ultrasound of the pelvis is performed using both transabdominal and transvaginal transducers along with Doppler. Transvaginal imaging is performed due to inadequate visualization transabdominally. FINDINGS: UTERUS: The uterus is anteverted, anteflexed, and measures 10.0 x 4.1 x 5.8 cm. Normal cervix. The double wall endometrial thickness is 7 mm. Trilaminar appearance. The uterus is smooth in contour and has minimally heterogeneous myometrial echogenicity. There are 2 tiny fibroids: A tiny intramural fibroid in the dorsal fundus measures 0.6 x 0.5 x 0.7 cm. A subserosal right mid uterine segment fibroid measures 2.0 x 1.5 x 1.9 cm. ADNEXA: Both ovaries are visualized. There is normal color flow to the adnexa. There is no ovarian torsion. There is no pelvic ascites or fluid collection. No adnexal masses. Right ovary measures 2.4 x 1.9 x 2.4 cm. Volume = 5.8 mL. Normal sonographic appearance. Corpus albicans present. Left ovary measures 2.9 x 1.8 x 1.9 cm. Volume = 5.2 mL. Normal sonographic appearance. Corpus luteal cyst present. US/US pelvic and transvaginal IMPRESSION: 1. Normal endometrium measuring 7 mm with trilaminar appearance. 2. There are 2 small myometrial fibroids, the smaller measures 0.6 x 0.5 x 0.7 cm in the dorsal fundus, and the larger is subserosal measuring 2.0 x 1.5 x 1.9 cm in the right mid uterine segment. 3. Normal ovaries bilaterally. No adnexal masses. Electronically signed by: Markus Broderick MD 05/26/2025 03:45 PM EDT Dictated By: Markus Broderick MD Signed By: <Electronically signed by Markus Broderick MD in OV> 05/26/25 1545 DD/ 1445 TD/TT: 05/26/25 1502 Chainstitch Tunnel Elastic Operator: us Sabas Manuel CNM IMG US PROCEDURES Final R esult * XR Chest 2 Views (05/20/2025 9:30 AM EDT) Anatomical Region Laterality Modality Chest Radiographic Evelyn ging 05/20/2025 9:30 AM EDT Narrative 05/20/2025 10:03 AM EDT [address] [address] XRay Report Signed Patient: Shahab Barragan MR#: [id number] : 1985 Acct:[id number] Age/Sex: 39 / F ADM Date: 05/20/25 Loc: SLIME Attending Dr: Cory Sanchez MD Ordering Physician: Cory Sanchez MD Date of Service: 05/20/25 Procedure(s): XR chest 2V Accession Number(s): [id number] cc: Cory Sanchez MD; Andria Gomez MD EXAMINATION: XR CHEST 2 VIEWS HISTORY: L52 - Erythema nodosum COMPARISON: There are no prior studies available for comparison. FINDINGS: PA and lateral views of the chest are submitted. The lungs are expanded and clear. There is no pleural effusion, pneumothorax, or pulmonary vascular congestion. The heart is normal in size. The bones are intact. XR/XR chest 2V IMPRESSION: Normal examination of the chest. Electronically signed by: Arian Felton MD 05/20/2025 10:00 AM EDT Dictated By: Arian Felton MD Signed By: <Electronically signed by Arian Felton MD in OV> 05/20/25 1000 DD/ 0930 TD/TT: 05/20/25 0935 Chainstitch Tunnel Elastic Operator: Procedure Note Donotuseinterpreter, Image - 05/20/[address] [address] XRay Report Signed Patient: Jaz BarraganR#: [id number] : 1985Acct:[id number] Age/Sex: 39 / FADM Date: 05/20/25 Loc: SLIME Attending Dr: Cory Sanchez MD Ordering Physician: Cory Sanchez MD Date of Service: 05/20/25 Procedure(s): XR chest 2V Accession Number(s): [id number] cc: Cory Sanchez MD; Andria Gomez MD EXAMINATION: XR CHEST 2 VIEWS HISTORY: L52 - Erythema nodosum COMPARISON: There are no prior studies available for comparison. FINDINGS: PA and lateral views of the chest are submitted. The lungs are expanded and clear. There is no pleural effusion, pneumothorax, or pulmonary vascular congestion. The heart is normal in size. The bones are intact. XR/XR chest 2V IMPRESSION: Normal examination of the chest. Electronically signed by: Arian Felton MD 05/20/2025 10:00 AM EDT RP Dictated By: Arian Felton MD Signed By: <Electronically signed by Arian Felton MD in OV> 05/20/25 1000 DD/ TD/TT: 05/20/25 0935 Chainstitch Tunnel Elastic Operator: [facility] External Provider IMG XR PROCEDURES Final Result * Hepatitis B Profile (05/19/2025 12:08 PM EDT) Pathologist [facility] ~Hepatitis B Surface Antibody NONREACTIVE Nonreactive [facility] Comment:Nonreactive: < 8.00 mIU/mL Hepatitis B Core Antibody Reactive Nonreactive [facility] Comment:Presumptive evidence of anti-HBc. 05/19/2025 12:0 8 PM EDT 05/19/2025 1:32 PM EDT Generic External Data Provider LAB BLOOD ORDERAB LES Final Result [facility] [address] [place] [phone] * (ABNORMAL) CBC auto differential (05/19/2025 12:08 PM EDT) White Blood Count 6.3 4.8 - 10.8 X10*3/uL [facility] Red Blood Count 4.60 4.20 - 5.50 X10*6/uL [facility] Hemoglobin 10.5(L) 12.0 - 16.0 g/dl [facility] Hematocrit 31.9(L) 37.0 - 47.0 % [facility] Mean Corpuscular Volume 69.3(L) 80.0 - 98.0 fL [facility] Mean Corpuscular Hemoglobin 22.8(L) 27.0 - 33.0 pg [facility] Mean Corpuscular HGB Conc 32.9 31.0 - 35.0 g/dl [facility] Red Cell Distribution Width 17.0(H) 11.0 - 16.0 % [facility] Platelet Count 241 160 - 400 X10*3/uL [facility] Mean Platelet Volume TNP 9.4 - 12.3 fL [facility] Neutrophils Percent Auto 74.0(H) 45 - 73 % [facility] Imm Gran Pct Auto 0.5(H) 0.0 - 0.4 % [facility] Lymphocytes Percent Auto 16.5(L) 20 - 40 % [facility] Monocytes Percent Auto 6.7 2 - 11 % [facility] Eosinophils Percent Auto 1.7 0 - 4 % [facility] Basophils Percent Auto 0.6 0 - 2 % [facility] NRBC Pct Auto 0.0 0.0 - 0.2 /100WBC [facility] Neutrophils Absolute Auto 4.7 2.0 - 8.3 x10*3/uL [facility] Imm Gran Abs Auto 0.03 0.00 - 0.03 X10*3/uL [facility] Lymphocytes Absolute Auto 1.0(L) 1.2 - 4.9 X10*3/uL [facility] Monocytes Absolute Auto 0.4 0.1 - 1.2 X10*3/uL [facility] Eosinophils Absolute Auto 0.1 0.0 - 0.4 X10*3/uL [facility] Basophils Absolute Auto 0.0 0.0 - 0.2 X10*3/uL [facility] NRBC Abs Auto 0.000 0.0 - 0.012 X10*3/uL [facility] 05/19/2025 12:0 8 PM EDT 05/19/2025 1:35 PM EDT Generic External Data Provider LAB BLOOD ORDERAB LES Final Result Performing Organization Address [facility] Phone Number [facility] [address] [place] [phone] * (ABNORMAL) Hepatitis Be Antibody (05/19/2025 12:08 PM EDT) Hepatitis Be Antibody REACTIVE(A ) NON-REACTI VE [facility] Comment:For additional infor mation, please refer tohttp://Fatsoma.TouchFrame/faq/TBV109(This link is being provided for informational/educational purposes only.)THIS TEST WAS PERFORMED AT:[email or web address] [place] [phone] NAGY MD 05/19/2025 12:0 8 PM EDT 05/19/2025 1:32 PM EDT Generic External Data Provider LAB BLOOD ORDERAB LES Final Result Performing Organization Address [facility] [address] [place] [phone] * Hepatitis B Core??Antibody (IgM) (05/19/2025 12:08 PM EDT) Hepatitis B Core Antibody IgM NON-REACTI VE NON-REACTI VE [facility] Comment:For additional infor mation, please refer tohttp://Fatsoma.TouchFrame/faq/CPI915(This link is being provided for informational/educational purposes only.)THIS TEST WAS PERFORMED AT:[email or web address] [place] [phone] NAGY MD 05/19/2025 12:0 8 PM EDT 05/19/2025 1:32 PM EDT Generic External Data Provider LAB BLOOD ORDERAB LES Final Result Performing Organization Address [facility]/State/ZIP Co de Phone Number [facility] [address] [place] [phone] * (ABNORMAL) Hepatitis B Virus DNA, Quantitative, Real-Time PCR (05/19/2025 12:08 PM EDT) Hepatitis B Viral DNA Qn - cp 3.17(A) NOT DETECTED Log IU/mL [facility] Comment:This test was perfor med using Real-Time Polymerase ChainReaction.Reportable Range: 10 IU/mL to 1,000,000,000 IU/mL.(1.00 Log IU/mL to 9.00 Log IU/mL).THIS TEST WAS PERFORMED AT:[facility] [address] [phone] NAGY MD Hepatitis B Viral DNA Qn-IU/mL 1470(A) NOT DETECTED IU/mL [facility] 05/19/2025 12:0 8 PM EDT 05/19/2025 1:32 PM EDT us Generic External Data Provider LAB BLOOD ORDERAB LES Final Result Performing Organization Address [facility] Co de Phone Number [facility] [address] [place] [phone] * Hepatitis Be Antigen (05/19/2025 12:08 PM EDT) Pathologist [facility] Hepatitis Be Antigen NON-REACTI VE NON-REACTI VE [facility] Comment:For additional infor violetta, please refer tohttp://education.TouchFrame/faq/EQX959(This link is being provided for informational/educational purposes only.)THIS TEST WAS PERFORMED AT:[facility] [address] [phone] NAGY MD 05/19/2025 12:0 8 PM EDT 05/19/2025 1:32 PM EDT us Generic External Data Provider LAB BLOOD ORDERAB LES Final Result Performing Organization Address [facility] Co de Phone Number [facility] [address] [place] [phone] * Prolactin (05/19/2025 12:08 PM EDT) Pathologist [facility] Prolactin 4.1 ng/mL [facility] Comment:Reference Range Fema les Non- 3.0-30.0 10.0-209.0 Postmenopausal 2.0-20.0THIS TEST WAS PERFORMED AT:[facility] [address] [phone] NAGY MD Blood Venous blood specimen / Unknown 05/19/2025 12:08 PM EDT 05/19/2025 1:32 PM EDT Sabas Manuel [facility] LAB BLOOD ORDERABLES Andreina l Result Performing Organization Address [facility] de Phone Number [facility] [address] [place] [phone] * Estradiol (05/19/2025 12:08 PM EDT) Pathologist [facility] Estradiol Ultra Sensitive 78 pg/mL [facility] Comment:Female Reference Ran ges for Estradiol, Ultrasensitive (pg/mL): Follicular Phase: 39-375 Luteal Phase: 48-440 Postmenopausal Phase: < or = 10This test was developed and its analytical performancecharacteristics have been determined by [email or web address].It has not been cleared or approved by the FDA. This assayhas been validated pursuant to the CLIA regulations and isused for clinical purposes.THIS TEST WAS PERFORMED AT:[facility] [address], [place] [phone] FOY MD,PHD,JOANNE Blood Venous blood specimen / Unknown 05/19/2025 12:08 PM EDT 05/19/2025 1:32 PM EDT Sabas Manuel [facility] LAB BLOOD ORDERABLES Andreina l Result Performing Organization Address [facility] de Phone Number [facility] [address] [place] [phone] * FSH (05/19/2025 12:08 PM EDT) Follicle Stimulating Hormone 6.3 mIU/mL [facility] Comment:Reference Range Foll icular Phase 2.5-10.2 Mid-cycle Peak 3.1-17.7 Luteal Phase 1.5- 9.1 Postmenopausal 23.0-116.3THIS TEST WAS PERFORMED AT:[address] [place] [phone] NAGY MD Blood Venous blood specimen / Unknown 05/19/2025 12:08 PM EDT 05/19/2025 1:32 PM EDT Sabas Manuel [facility] LAB BLOOD ORDERABLES Andreina l Result Performing Organization Address [facility] de Phone Number [facility] [address] [place] [phone] * (ABNORMAL) Comprehensive Metabolic Panel (05/19/2025 12:08 PM EDT) Sodium 140 135 - 145 mmol/L [facility] Potassium 3.6 3.3 - 5.1 mmol/L [facility] Chloride 110(H) 96 - 108 mmol/L [facility] Carbon Dioxide 25 22 - 29 mmol/L [facility] Anion Gap 9(L) 12 - 20 [facility] Urea Nitrogen (BUN) 14 9 - 16 mg/dL [facility] Creatinine, Serum 0.61 0.5 - 1.4 mg/dL [facility] Estimated Glomerular Filt Rate >60 [facility] Comment:Chronic Kidney Disea se: Estimated GFR < 60 mL/min/1.39u3Qlvxhf Kidney Disease: Estimated GFR < 15 mL/min/1.73m2 Glucose 100 60 - 115 mg/dL [facility] Calcium 8.6 8.4 - 10.2 mg/dL [facility] Bilirubin, Total 0.6 0.0 - 1.0 mg/dL [facility] Aspartate Amino Transferase 27 5 - 31 U/L [facility] Alanine Aminotransferase 25 0 - 31 U/L [facility] Total Protein 7.9 6.5 - 8.0 g/dL [facility] Albumin Level 4.7 3.5 - 5.0 g/dL [facility] Alkaline Phosphatase 47 39 - 117 U/L [facility] 05/19/2025 12:0 8 PM EDT 05/19/2025 1:35 PM EDT Generic External Data Provider LAB BLOOD ORDERAB LES Final Result Performing Organization Address [facility] de Phone Number [facility] [address] [place] [phone] * Hepatitis Panel, General (05/12/2024 11:46 AM EDT) Hepatitis A IgM Nonreactive Nonreactive [facility] Comment:IgM antibodies to DUGGAN V not detected; does not exclude earlyacute or recovered HAV infection. ~Hepatitis B Surface Antibody NONREACTIVE Nonreactive [facility] Comment:Nonreactive: < 8.00 mIU/mL Hepatitis B Core Antibody Reactive Nonreactive [facility] Comment:Presumptive evidence of anti-HBc. Hepatitis C Antibody Nonreactive Nonreactive [facility] Comment:Antibodies to HCV no t detected; does not exclude early acuteHCV infection. 05/12/2024 11:4 6 AM EDT 05/12/2024 11:46 AM EDT Generic External Data Provider LAB BLOOD ORDERAB LES Final Result Performing Organization Address [facility] Co de Phone Number [facility] [address] [place] [phone] * HPV mRNA E6/E7 w/Reflex to HPV Genotypes 16, 18/45 (02/05/2024 11:20 AM EDT) HPV nRNA E6/E7 Not Detected Not Detected [facility] Comment:Methodology: Transcr iption-Mediated AmplificationThis assay detects E6/E7 viral messenger RNA (mRNA) from 14high-risk HPV types (16,18,31,33,35,39,45,51,52,56,58,59,66,68).Cervical sources are required for HPV testing.If a vaginal source from a patient who has had atotal hysterectomy with removal of cervix wassubmitted, please contact the testing laboratoryfor alternative testing options.For additional information, please refer tohttp://education.TouchFrame/faq/TAK429o4(This link if provided for information/educational purposes only.)THIS TEST WAS PERFORMED AT:[address] [place] [phone] NAGY MD HPV mRNA E6/E7 [facility] HPV 16 RNA [facility] HPV 18/45 RNA [facility] 02/05/2024 11:2 0 AM EDT 02/07/2024 6:30 AM EDT us Sabas Manuel [facility] CYTOLOGY ORDERABLES F inal Result [facility] [address] [place] [phone] * Pap Smear (02/05/2024 11:20 AM EDT) Swab Cervix uteri structure / Unknown 02/05/2024 11:20 AM EDT 02/07/2024 6:30 AM EDT Narrative [facility] - 02/23/2024 4:23 PM EDT ----- ------- Name: Shahab Barragan Age/Sex: 38/F : 1985 Unit#: [id number] Attend Dr: SABAS MANUEL CNM Re02/05/24 Status: DEP REF Location: [facility] Disch: ----- ------- SPEC : [id number] RECD: 02/07/24 STATUS: VASU BRISEIDA NUM: [id number] CANDIE: 02/05/24-[address] [facility] DR: SABAS MANUEL ENTERED: 02/07/24 SP TYPE: Pap Smr OT DR: ORDERED: Pap Smear Interpretation Satisfactory for evaluation. No endocervical cells seen. Negative for intraepithelial lesion or malignancy. Moderate inflammation. HPV mRNA E6/E7: NOT DETECTED This assay detects E6/E7 viral messenger RNA (mRNA) from 14 high-risk HPV types (16, 18, 31, 33, 35, 39, 45, 51, 52, 56, 58, 59, 66, 68) HPV testing performed by [email or web address], [place], [place]. See reference laboratory portion of the EMR for entire report. Clinical Information LMP: Unknown date Previous PAP test: 2016, WNL Material Received ThinPrep-Cervical ----- ------- Signed (signature on file) Jerri Hanna 02/23/24 1623 ----- ------- END OF REPORT us Sabas Maris [facility] CYTOLOGY ORDERABLES F inal Result [facility] [address] [place] [address] [phone] * BI Mammogram Screening Tomosynthesis Bilateral (02/01/2024 9:35 AM EDT) Anatomical Region Laterality Modality Breast Bilateral Mammography 02/01/2024 9:35 AM EDT Narrative 02/16/2024 5:00 PM EDT [facility] [address] [place] [address] Mammography Report Signed Patient: Shahab Barragan MR#: [id number] : 1985 Acct:[id number] Age/Sex: 38 / F ADM Date: 02/01/24 Loc: HO.MAMMO Attending Dr: Andria Gomez MD Ordering Physician: Andria Gomez MD Results: 1Negati ve Date of Service: 02/01/24 Follow Up: 1 Year From Orig inal Mammogram Procedure(s): MM tomosynthesis screening BI Accession Number(s): [id number] cc: Andria Gomez MD EXAMINATION: MM SCREENING [...] in OV> 02/16/24 1657 DD/ 0935 TD/TT: Chainstitch Tunnel Elastic Operator: Procedure Note Donotuseinterpreter, Image - 02/16/2024 [facility] [address] [place] [address] Mammography Report Signed Patient: Liliane Barragan#: [id number] : 1985Acct:[id number] Age/Sex: 38 / FADM Date: 02/01/24 Loc: HOAnibalMAMMO Attending Dr: Andria Gomez MD Ordering Physician: Andria Gomez MDResults: 1Negati ve Date of Service: 02/01/24Follow Up: 1 Year From Orig inal Mammogram Procedure(s): MM tomosynthesis screening BI Accession Number(s): [id number] cc: Andria Gomez MD EXAMINATION: MM SCREENING [...] in OV> 02/16/24 1657 DD/ 0935 TD/TT: Chainstitch Tunnel Elastic Operator: Andria Gomez MD IMG BI PROCEDURES Edited Result - Final from Last 3 Months or Most Recently Relevant to Health Maintenance Insurance [facility] MEDICAID STAND ADULT Care Teams Horse Groomer Relationship Specialty Start Date End Date Janice Wood CNP PCP - General Family Medicine 06/12/25
--- OUTSIDE RECORDS SUMMARY | 2025-07-27 11:08 | XMS_ITS | Encounter Summary ---
Author Organization [employer] Address [address] [place] [address] 7 [place] [address] Care Team Providers Care Floor Director Name Role Phone Andria Gomez MD Primary Care Provider [phone] Janice Wood CNP Primary Care Provider [phone] Encounter Details Date Type Department Care Team (Late st Contact Info) Description 12/07/2023 Telephone [facility] MED[facility] [address] [place], [place] [phone] Andria Gomez MD [address] [place], [place] [phone] Social History Tobacco Use Types Packs/Day Years Used Date Smoking Tobacco: Never Smokeless Tobacco: Never Comments Unknown Sex and Gender Information Value Date Recorded Sex Assigned at Female 09/04/2022 10:25 AM EDT Legal Sex Female 10:25 AM EDT Gender Identity Female 09/04/2022 10:25 AM EDT Sexual Orientation Straight 09/04/2022 10 :25 AM EDT documented as of this encounter Plan of Treatment Upcoming Encounters Date Type Department Care Team (Late st Contact Info) Description 07/28/2025 10:00 AM EDT Office Visit [facility] ADULT [facility] [address] [place], [place] [phone] Suresh Meadows DMD [address] [place], [place] [phone] 11/20/2025 1:00 PM EST Office Visit [facility] [address] [place], [place] [phone] Hodan Miller documented as of this encounter Visit Diagnoses Not on filedocumented in this encounter Care Teams Floor Director Relationship Specialty Start Date End Date Andria Gomez MD [address] [place] [address] PCP - General Family Medicine 09/09/13 06/11/25 Janice Wood CNP [address] [place] [address] PCP - General Family Medicine 06/12/25 documented as of this encounter
--- OUTSIDE RECORDS SUMMARY | 2025-07-27 11:08 | XMS_ITS | Encounter Summary ---
Author Organization [employer] Address [address] [facility] 7t [place] [address] Care Team Providers Care Bag Hanger Name Role Phone Andria Gomez MD Primary Care Provider [phone] Janice Wood CNP Primary Care Provider [phone] Reason for Visit * Reason Onset Date Comments confirmed rescheduled date 05/14/2025 Encounter Details Date Type Department Care Team ([facility] st Contact Info) Description 05/14/2025 Telephone [facility] ADULT DENTAL [address] [place] [address] Hodan Miller confirmed rescheduled date Social History Tobacco Use Types Packs/Day Years [...] * Telephone Encounter - Ramila Porter - 05/14/2025 10:26 AM EDT Patient called in and confirmed the rescheduled date to 05/19 at 2pm is good for her DR documented in this encounter Plan of Treatment Upcoming Encounters Date Type Department Care Team (Late st Contact Info) Description 07/28/2025 10:00 AM EDT Office Visit [facility] ADULT [facility] [address] [place] [address] Suresh Meadows, DMD [address] [place] [address] 11/20/2025 1:00 PM EST Office Visit [facility] ADULT DENT[facility] [address] [place] [address] Hodan Miller documented as of this encounter Visit Diagnoses Not on filedocumented in this encounter Additional Health Concerns Assessment Noted Time PHQ-9 Depression Total Score: 0 01/16/20 24 9:16 AM EDT documented as of this encounter Care Teams Bag Hanger Relationship Specialty Start Date End Date Andria Gomez MD [address] [place] [address] PCP - General Family Medicine 09/09/13 06/11/25 Janice Wood CNP [address] [place] [address] PCP - General Family Medicine 06/12/25 documented as of this encounter
--- OUTSIDE RECORDS SUMMARY | 2025-07-27 11:08 | XMS_ITS | Encounter Summary ---
Author Organization [employer] Address [address] [place] [address] 7t [place] [address] Care Team Providers Care Aviation Technical Systems Specialist Name Role Phone Andria oGmez MD Primary Care Provider [phone] Janice Wood CNP Primary Care Provider [phone] Reason for Visit * Reason Onset Date Comments pain and root left in gum 06/04/2024 Encounter Details Date Type Department Care Team (Late st Contact Info) Description 06/04/2024 Telephone [facility] ADULT DENTAL [address] [place], [place] [phone] Pravin Dykes DDS [address] [place], [place] [phone] pain and root left in gum Social [...] Description 07/28/2025 10:00 AM EDT Office Visit [facility] [address] [place] [address] Suresh Meadows, GERARDO [address] [place] [address] 11/20/2025 1:00 PM EST Office Visit [facility] [address] [place] [address] Hodan Miller documented as of this encounter Visit Diagnoses Not on filedocumented in this encounter Additional Health Concerns Assessment Noted Time PHQ-9 Depression Total Score: 0 01/16/20 24 9:16 AM EDT documented as of this encounter Care Teams Aviation Technical Systems Specialist Relationship Specialty Start Date End Date Andria Gomez MD [address] [place] [address] PCP - General Family Medicine 09/09/13 06/11/25 Janice Wood CNP [address] [place] [address] PCP - General Family Medicine 06/12/25 documented as of this encounter
--- OUTSIDE RECORDS SUMMARY | 2025-07-27 11:08 | XMS_ITS | Encounter Summary ---
Author Organization [employer] Address [address] [facility] 7t [place] [address] Care Team Providers Care Anatomic Pathology Manager Name Role Phone IsraelAlexherrerarocky DAE Primary Care Provider [phone] Encounter Details Date Type Department Care Team ([facility] st Contact Info) Description 07/27/2025 Orders Only [facility] External Provider, [facility] Social History Tobacco Use Types Packs/Day Years [...] Q2 Not on file 05/19/2025 Comments No Sex and Gender Information Value [...] Description 07/28/2025 10:00 AM EDT Office Visit [facility] ADULT D[facility] [address] [place] [address] Suresh Meadows, GERARDO [address] [place] [address] 11/20/2025 1:00 PM EST Office Visit [facility] [address] [place] [address] Hodan Miller documented as of this encounter Procedures Procedure Name Priority Date/Time Associated Diagnosis Comments US ABDOMEN OROZCO W ELASTOGRAPHY Routine 07/27/2025 9:46 AM EDT documented in this encounter Results * US ABDOMEN OROZCO W ELASTOGRAPHY (07/27/2025 9:46 AM EDT) Anatomical Region Laterality Modality Abdomen Ultrasound 07/27/2025 9:46 AM EDT Narrative 07/27/2025 10:27 AM EDT [address] [address] Ultrasound Report Signed Patient: Shahab Barragan MR#: [id number] : 1985 Acct:[id number] Age/Sex: 39 / F ADM Date: 07/27/25 Loc: HO.US Attending Dr: Cory Sanchez MD Ordering Physician: Cory Sanchez MD Date of Service: 07/27/25 Procedure(s): US abdomen orozco w elastography Accession Number(s): [id number] cc: Cory Sanchez MD; Andria Gomez MD [...] 07/27/25 1024 DD/ 0946 TD/TT: 07/27/25 0958 Draw Frame Operator: Procedure Note Donotuseinterpreter, Image - 07/27/[address] [address] Ultrasound Report Signed Patient: Liliane Barragan#: [id number] : 1985Acct:[id number] Age/Sex: 39 / FADM Date: 07/27/25 Loc: HO.US Attending Dr: Cory Sanchez MD Ordering Physician: Cory Sanchez MD Date of Service: 07/27/25 Procedure(s): US abdomen orozco w elastography Accession Number(s): [id number] cc: Cory Sanchez MD; Andria Gomez MD [...] Measurements were obtained approximately 2 cm below Faviloa's capsule and perpendicular to the capsule. The [...] Felton MD in OV> 07/27/25 1024 DD/ TD/TT: 07/27/2558 Draw Frame Operator: [facility] External Provider IMG US PROCEDURES Edited Result - Final documented in this encounter Visit Diagnoses Not on filedocumented in this encounter Additional Health Concerns Assessment Noted Time PHQ-9 Depression Total Score: 0 01/16/20 24 9:16 AM EDT documented as of this encounter Care Teams Anatomic Pathology Manager Relationship Specialty Start Date End Date Janice Wood CNP PCP - General Family Medicine 06/12/25 documented as of this encounter
--- OUTSIDE RECORDS SUMMARY | 2025-07-27 11:08 | XMS_ITS | Encounter Summary ---
Author Organization [employer] Address [address] [place] [address] 7[address] [place] [address] Care Team Providers Care Deputy Bailiff Name Role Phone Andria Gomez MD Primary Care Provider [phone] Janice Wood CNP Primary Care Provider [phone] Reason for Visit * Reason Onset Date Comments Appointment Request 12/07/2023 Encounter Details Date Type Department Care Team (Late Contact Info) Description 12/07/2023 Telephone [facility] [address] [place] [address] Andria Gomez MD [address] [place] [address] Appointment Request Social History Tobacco Use Types [...] Department Care Team (Late Contact Info) Description 07/28/2025 10:00 AM EDT Office Visit [facility] [address] [place] [address] Suresh Meadows, DMD [address] [place] [address] 11/20/2025 1:00 PM EST Office Visit [facility] [address] [place] [address] Hodan Miller documented as of this encounter Visit Diagnoses Not on filedocumented in this encounter Care Teams Deputy Bailiff Relationship Specialty Start Date End Date Andria Gomez MD [address] [place] [address] PCP - General Family Medicine 09/09/13 06/11/25 Janice Wood CNP [address] [place] [address] PCP - General Family Medicine 06/12/25 documented as of this encounter
== END 2025-07-27 09:27 | disposition home or self-care (01) ==
LOC: HO.US 09:26
PROVIDERS: PCP Student in an Organized Health Care Education/Training Program; Visit Provider Internal Medicine Gastroenterology
DX: B18.1 Chronic viral hepatitis B without delta-agent (principal)
CPT/HCPCS: 76705; 76981

== ENCOUNTER → 2025-07-27 09:30 | Outpatient (BNV) | payer MEDICAID, SELFPAY | PROVIDERS: PCP Student in an Organized Health Care Education/Training Program; Visit Provider Radiology Diagnostic Radiology | DX: B18.1 Chronic viral hepatitis B without delta-agent (principal) | CPT/HCPCS: 76705 ==

== ENCOUNTER 2025-09-28 09:27 | Outpatient (RCR) | payer MEDICAID, SELFPAY | END 2025-11-02 15:00 | disposition home or self-care (01) | LOC: HO.PT 09:27 | PROVIDERS: PCP Student in an Organized Health Care Education/Training Program; Visit Provider Urology | DX: N39.46 Mixed incontinence (principal) | CPT/HCPCS: 97112; 97140; 97162 ==

== ENCOUNTER 2025-10-12 14:50 | Outpatient (AMB) | payer MEDICAID, SELFPAY ==
[2025-10-12 14:56] VITALS: BP 107/71; PULSE 69; BMI 23.4
--- NOTE | 2025-10-12 14:56 | MHC.OFFVIS ---
Vital Signs 10/12/25 14:56 Height 5 ft 2 in Weight 127 lb 13.89 oz BMI 23.4 BP 107/71 Blood Pressure Location Lt brachial Position Sitting Pulse 69 Intake Visit Reasons: 4 mo Intake Note: Gibran presents in the office as a 4 month follow up. CC: she states no concerns today Senior Clinical Data Manager Required: Yes Senior Clinical Data Manager Name: Gorkem Allergies ibuprofen Allergy (Severe, Verified 05/18/25 15:27) Unknown almond Allergy (Severe, Uncoded 05/18/25 15:27) Swelling dust Allergy (Mild, Uncoded 05/18/25 15:27) Itchy Eyes pollen Allergy (Mild, Uncoded 05/18/25 15:27) Itchy Eyes HPI HPI 4 mo: Details: 39 yr old f with hx of RA being seen for f/u for Hep B RECAP: she conts on plaquenil for RA Hep b labs positive, Hep d negative LFT normal she says she knew she had hep b from she does not drink alcohol LABS: 01/2022--LFt nml, HBV VL--7700, HBe Ag--neg, Hep C neg LFT nml, HBV VL--7000, Hbe neg US 10/28-- nml US: 07/30- nml - no masses INTERIM: I gave her nexium for GERD it never agreed with her -- caused her nausea she still has reflux she denies abdominal pain no nausea or vomiting now denies rectal bleeding, no melena EXAM: GENERAL: The patient is well developed and nontoxic. VITAL SIGNS:see workflow HEENT: Nonicteric sclerae, PERRLA, EOMI. Oropharynx clear. Moist mucous membranes. Conjunctivae appear well perfused. No thyroid mass. CHEST: Chest wall is nontender. HEART: Regular rate and rhythm without murmurs. LUNGS: Clear to auscultation bilaterally. ABDOMEN: Soft, positive bowel sounds, nontender, no organomegaly.no flank tenderness SKIN: No rash, no excessive bruising, petechiae, or purpura. NEUROLOGIC: Cranial nerves II-XII intact without motor/sensory deficit. A/P: 1/ Chronic Hep B, e Ag neg, nml LFt -- immune tolerant phase. 2/ Chronic anemia, microcytosis, prob thalaseemia 3/ RA: On plaquenil PLAN: 1/recheck labs today, make sure not entering immune active phase-- 2/ As noted before---If she has to escalate RA treatment to biologics then she would need treatment to prevent acute hep B flare 3/ liver for monitoring -- [facility] Medical History Knee pain Hypovitaminosis D Chronic hepatitis B Seropositive rheumatoid arthritis Surgical History No pertinent past surgical history Social History Household Members: Spouse and Children Housing: Apartment Are you a primary day care home mother to a significant other at home: No Do you presently have visiting nurse or other home services: No Alcohol intake: never Patient Tobacco Use Status: Never used Tobacco e-Cigarette/Vaping Use: Never Used service: No Current occupational status: unemployed Physical Exam Vital Signs: Last Vital Signs Pulse 69 10/12/25 14:56 BP 107/71 10/12/25 14:56 BMI result Body Mass Index 23.4 Assessment & Plan Assessment & Plan (1) Chronic hepatitis B: Comment: Code(s): B18.1 - Chronic viral hepatitis B without delta-agent Category: Medical Plan: as above Orders: Orders US abdomen dockery w elastography Today B18.1 - Chronic viral hepatitis B without delta-agent, K74.69 - Other cirrhosis of liver, K75.81 - Nonalcoholic steatohepatitis (CHENG) Hepatitis B Profile Today B18.1 - Chronic viral hepatitis B without delta-agent Complete Blood Count Auto Diff Today B18.1 - Chronic viral hepatitis B without delta-agent Comprehensive Met. Panel Today B18.1 - Chronic viral hepatitis B without delta-agent, K75.81 - Nonalcoholic steatohepatitis (CHENG) Medications: New famotidine 40 mg PO BEDTIME 90 tabs 3RF Coding Level of Care Code Est Pt Level 4 (68657) Diagnoses Chronic hepatitis B B18.1
--- OUTSIDE RECORDS SUMMARY | 2025-10-13 00:14 | XMS_ITS | Clinical Summary ---
Author Organization [employer] Address [address] [place] [address] [address] [place] [address] Care Team Providers Care Chemical Blender Name Role Phone Janice Wood DAE Primary Care Provider [phone] Allergies Active Allergy Reactions Criticality Noted Date Comments Dust Mite Extract 02/05/2024 Gramineae Pollens 09/17/2023 Ibuprofen-Famotidine 03/20/2025 Medications hydroxychloroqu ine (Plaquenil) 200 MG tablet Take 1 tablet by mouth in the morning. 3 Active cyanocobalamin (Vitamin B-12) 1000 MCG tablet Take 1,000 mcg by mouth in the morning. 3 Active biotin 10 MG capsule Take 1 capsule (10 mg) by mouth 2 times daily. 30 capsule 11 4 Active folic acid (Folvite) 1 MG tablet TAKE 1 TABLET BY MOUTH EVERY DAY 90 tablet 6 4 Active diphenhydrAMINE (BENADryl) 25 MG tablet Take 1 tablet (25 mg) by mouth every 8 (eight) hours if needed (mild allergic reaction). 30 tablet 3 4 Active Additional Information Patient not taking.Reported on 07/28/2025 Sodium Fluoride 1.1 % cream [place] teeth for 2 minutes, morning and night. Spit, do not rinse. Do not eat or drink anything for 30 minutes following use. 112 g 3 5 Active estradiol (Estrace) 0.1 MG/GM vaginal cream 1g vaginally x 14d, then twice weekly thereafter 45 g 2 5 Active Sodium Fluoride 1.1 % creamIndication s:Dental caries [place] teeth for 2 minutes, morning and night. Spit, do not rinse. Do not eat or drink anything for 30 minutes following use. 112 g 3 5 Active albuterol 108 (90 Base) MCG/ACT inhalerIndicati ons:Acute cough INHALE 2 PUFFS BY MOUTH EVERY 4 HOURS NEEDED FOR WHEEZING 18 g 5 Active fexofenadine (Kari) 180 MG tablet TAKE 1 TABLET BY MOUTH EVERY DAY NEEDED FOR ALLERGIES 90 tablet 2 5 Active chlorhexidine (Peridex) 0.12 % solution Swish 15 mL morning and night for 1 minute. Spit, do not swallow. Do not eat or drink for 30 minutes following use. 473 mL 5 Active Active Problems Problem Noted Date Diagnosed Date Retained dental root 06/05/2024 Gingivitis, acute, plaque induced 04/04/2024 Acute pericoronitis 04/04/2024 Anemia affecting in third trimester Chronic hepatitis B ([facility]) 02/05/2024 exam 02/05/2024 High blood hemoglobin F 09/17/2023 09/17/20 23 Resolved Problems Problem Noted Date Diagnosed Date Resolved Date Rheumatoid arteritis ([facility]) 09/17/2023 09/17/2023 05/19/2025 Encounters Date Type Department Care Team Description 10/12/2025 Orders Only GENERIC EXTERNAL DATA DEPARTMENT Provider, Generic External Data 09/17/2025 10:00 AM EST Office Visit [facility] [address] [place] [address] Suresh Meadows DMD Dental caries (Primary Dx) 08/28/2025 Patient Outreach [facility] [address] [place] [address] Janice Wood CNP Pre-visit Planning (Pre visit planning LVM ) 07/28/2025 10:00 AM EDT Office Visit [facility] [address] [place] [address] Suresh Meadows DMD Secondary dental caries 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 (Primary Dx) 07/27/2025 Orders Only [facility] External Provider, [facility] from Last 3 Months Immunizations Immunization Administration [...] Sign Reading Time Taken Comments Blood Pressure 100/78 07/28/2025 10:01 AM EDT Pulse 79 05/19/2025 11:37 AM EDT [...] Care Team (Late st Contact Info) Description 11/20/2025 12:45 PM EST Office Visit [facility] [address] [place] [address] Hodan Miller Health Maintenance Due Date Last Done Comments HIV Screening 1985 HPV Vaccines (1 - 3-dose series) 1998 Hepatitis A Vaccines (1 of 2 - Risk 2-dose series) 2002 Depression Screening 01/15/2025 01/16/2024, 01/16/20 24 [...] 03/20/2025, 05/01/2024, Additional history exists Tobacco Screening 09/17/2026 09/17/2025 Dental X-Ray: Full Mouth 06/19/2027 024, 04/04/2024, 10/20/2022, Additional history exists Cervical Cancer Screening 02/04/2029 HPV/Cotest 02/04/2029 02/05/2024, [...] on patient's age to complete this topic Pneumococcal Vaccine: Pediatrics (0 to 5 Years) and At-Risk Patients (6 to 49) Years Aged Out No longer eligible based on patient's age to complete this topic RSV under 20 months Aged Out No longe r eligible based on patient's age to complete this topic Rotavirus Vaccines Aged Out No longer eligible based on patient's age to complete this topic Procedures Procedure Name Priority Date/Time Associated Diagnosis Comments CBC WITH AUTO DIFFERENTIAL Routine 10/12/2025 3:56 PM EST COMPREHENSIVE METABOLIC PANEL Routine 10/12/2025 3:56 PM EST CASE PRESENTATION, DETAILED AND EXTENSIVE TREATMENT PLANNING Routine 09/17/2025 10:00 AM EST Dental caries 30 DO RESIN-BASED COMPOSITE - 2 SURF, POSTERIOR Routine 09/17/2025 10:00 AM EST Dental caries CASE PRESENTATION, DETAILED AND EXTENSIVE TREATMENT PLANNING Routine 07/28/2025 10:00 AM EDT Secondary dental caries 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 4 DO RESIN-BASED COMPOSITE - 2 SURF, POSTERIOR Routine 07/28/2025 10:00 AM EDT Secondary dental caries 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 3 MO RESIN-BASED COMPOSITE - 2 SURF, POSTERIOR Routine 07/28/2025 10:00 AM EDT Secondary dental caries 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 US ABDOMEN OROZCO W ELASTOGRAPHY Routine 07/27/2025 9:46 AM EDT PROPHYLAXIS - ADULT Routine 05/19/2025 2 :00 PM EDT Defective dental restorationism Dental caries BITEWINGS - 4 RADIOGRAPHIC IMAGES Routine 05/19/2025 2:00 PM EDT Defective dental restorationism Dental caries PERIODIC ORAL EVALUATION - ESTABLISHED PATIENT Routine 05/19/2025 2:00 PM EDT Defective dental restorationism Dental caries HEPATITIS PANEL, GENERAL Routine 05/12/2024 11:46 AM [...] Maintenance Results * (ABNORMAL) CBC auto differential (10/12/2025 3:56 PM EST) White Blood Count 8.8 4.8 - 10.8 X10*3/uL [facility] Red Blood Count 4.71 4.20 - 5.50 X10*6/uL [facility] Hemoglobin 10.8(L) 12.0 - 16.0 g/dl [facility] Hematocrit 33.7(L) 37.0 - 47.0 % [facility] Mean Corpuscular Volume 71.5(L) 80.0 - 98.0 fL [facility] Mean Corpuscular Hemoglobin 22.9(L) 27.0 - 33.0 pg [facility] Mean Corpuscular HGB Conc 32.0 31.0 - 35.0 g/dl [facility] Red Cell Distribution Width 17.2(H) 11.0 - 16.0 % [facility] Platelet Count 248 160 - 400 X10*3/uL [facility] Neutrophils Percent Auto 66.7 45 - 73 % [facility] Imm Gran Pct Auto 0.3 0.0 - 0.4 % [facility] Lymphocytes Percent Auto 22.1 20 - 40 % [facility] Monocytes Percent Auto 7.6 2 - 11 % [facility] Eosinophils Percent Auto 2.7 0 - 4 % [facility] Basophils Percent Auto 0.6 0 - 2 % [facility] NRBC Pct Auto 0.0 0.0 - 0.2 /100WBC [facility] Neutrophils Absolute Auto 5.9 2.0 - 8.3 x10*3/uL [facility] Imm Gran Abs Auto 0.03 0.00 - 0.03 X10*3/uL [facility] Lymphocytes Absolute Auto 2.0 1.2 - 4.9 X10*3/uL [facility] Monocytes Absolute Auto 0.7 0.1 - 1.2 X10*3/uL [facility] Eosinophils Absolute Auto 0.2 0.0 - 0.4 X10*3/uL [facility] Basophils Absolute Auto 0.1 0.0 - 0.2 X10*3/uL [facility] NRBC Abs Auto 0.000 0.0 - 0.012 X10*3/uL [facility] 10/12/2025 3:56 PM EST 10/12/2025 3:57 PM EST us Generic External Data Provider LAB BLOOD ORDERAB LES Final Result [facility] [address] [place] [phone] * (ABNORMAL) Comprehensive Metabolic Panel (10/12/2025 3:56 PM EST) Sodium 140 135 - 145 mmol/L [facility] Potassium 3.9 3.3 - 5.1 mmol/L [facility] Chloride 108 96 - 108 mmol/L [facility] Carbon Dioxide 23 22 - 29 mmol/L [facility] Anion Gap 13 12 - 20 [facility] Urea Nitrogen (BUN) 11 9 - 16 mg/dL [facility] Creatinine, Serum 0.54 0.5 - 1.4 mg/dL [facility] Estimated Glomerular Filt Rate >60 [facility] Comment:Chronic Kidney Disea se: Estimated GFR < 60 mL/min/1.31c0Etcgwc Kidney Disease: Estimated GFR < 15 mL/min/1.73m2 Glucose 76 60 - 115 mg/dL [facility] Calcium 9.7 8.4 - 10.2 mg/dL [facility] Bilirubin, Total 0.7 0.0 - 1.0 mg/dL [facility] Aspartate Amino Transferase 23 5 - 31 U/L [facility] Alanine Aminotransferase 24 0 - 31 U/L [facility] Total Protein 8.3(H) 6.5 - 8.0 g/dL [facility] Albumin Level 5.2(H) 3.5 - 5.0 g/dL [facility] Alkaline Phosphatase 48 39 - 117 U/L [facility] 10/12/2025 3:56 PM EST 10/12/2025 3:57 PM EST us Generic External Data Provider LAB BLOOD ORDERAB LES Final Result [facility] [address] [place] [address] [phone] * US ABDOMEN OROZCO W ELASTOGRAPHY (07/27/2025 9:46 AM EDT) Anatomical Region Laterality Modality Abdomen Ultrasound 07/27/2025 9:46 AM EDT Narrative 07/27/2025 10:27 AM EDT [address] [address] Ultrasound Report Signed Patient: Shahab Barragan MR#: [id number] : 1985 Acct:[id number] Age/Sex: 39 / F ADM Date: 07/27/25 Loc: HO.US Attending Dr: Cory Sanchez MD Ordering Physician: Cory Sanchez MD Date of Service: 07/27/25 Procedure(s): US abdomen orozco w elastography Accession Number(s): [id number] cc: Cory Sanchez MD; Andria Gomez MD [...] Radiologists in Ultrasound Liver Stiffness Thresholds (2019): LIVER STIFFNESS THRESHOLDS: *Shear wave velocity less [...] 07/27/25 1024 DD/ 0946 TD/TT: 07/27/25 0958 Galley Cook: Procedure Note Donotuseinterpreter, Image - 07/27/[address] [address] Ultrasound Report Signed Patient: Liliane Barragan#: [id number] : 1985Acct:[id number] Age/Sex: 39 / FADM Date: 07/27/25 Loc: HO.US Attending Dr: Cory Sanchez MD Ordering Physician: Cory Sanchez MD Date of Service: 07/27/25 Procedure(s): US abdomen orozco w elastography Accession Number(s): [id number] cc: Cory Sanchez MD; Andria Gomez MD [...] 07/27/25 1024 DD/ 0946 TD/TT: 07/27/25 0958 Galley Cook: [facility] External Provider IMG US PROCEDURES Edited Result - Final * Hepatitis Panel, General (05/12/2024 11:46 AM EDT) Hepatitis A IgM Nonreactive Nonreactive [facility] Comment:IgM antibodies to DUGGAN V not detected; does not exclude earlyacute or recovered HAV infection. ~Hepatitis B Surface Antibody NONREACTIVE Nonreactive [facility] Comment:Nonreactive: < 8.00 mIU/mL Hepatitis B Core Antibody Reactive Nonreactive [facility] Comment:Presumptive evidence of anti-HBc. Hepatitis C Antibody Nonreactive Nonreactive [facility] Comment:Antibodies to HCV no t detected; does not exclude early acuteHCV infection. 05/12/2024 11:4 6 AM EDT 05/12/2024 11:46 AM EDT Generic External Data Provider LAB BLOOD ORDERAB LES Final Result [facility] [address] [place] [phone] * HPV mRNA E6/E7 w/Reflex to HPV Genotypes 16, 18/45 (02/05/2024 11:20 AM EDT) HPV nRNA E6/E7 Not Detected Not Detected [facility] Comment:Methodology: Transcr iption-Mediated AmplificationThis assay detects E6/E7 viral messenger RNA (mRNA) from 14high-risk HPV types (16,18,31,33,35,39,45,51,52,56,58,59,66,68).Cervical sources are required for HPV testing.If a vaginal source from a patient who has had atotal hysterectomy with removal of cervix wassubmitted, please contact the testing laboratoryfor alternative testing options.For additional information, please refer [email or web address]/faq/JKN659t0(This link if provided for information/educational purposes only.)THIS TEST WAS PERFORMED AT:[facility] [place] [phone] NAGY MD HPV mRNA E6/E7 [facility]NP [facility] HPV 16 RNA TNP [facility] HPV 18/45 RNA TNP [facility] 02/05/2024 11:2 0 AM EDT 02/07/2024 6:30 AM EDT us Sabas Manuel CNM LAB CYTOLOGY ORDERABLES F inal Result [facility] [address] [place] [address] [phone] * Pap Smear (02/05/2024 11:20 AM EDT) Swab Cervix uteri structure / Unknown 02/05/2024 11:20 AM EDT 02/07/2024 6:30 AM EDT Narrative [facility] - 02/23/2024 4:23 PM EDT ----- ------- Name: Shahab Barragan Age/Sex: 38/F : 1985 Unit#: [id number] Attend Dr: SABAS MANUEL CNM Re02/05/24 Status: DEP REF Location: [facility] Disch: ----- ------- SPEC : [id number] RECD: 02/07/24 STATUS: VASU GOINS NUM: [id number] CANDIE: 02/05/24-1120 [facility] DR: SABAS MANUEL CNM ENTERED: 02/07/24 SP TYPE: Pap Smr OTHR DR: ORDERED: Pap Smear Interpretation Satisfactory for evaluation. No endocervical cells seen. Negative for intraepithelial lesion or malignancy. Moderate inflammation. HPV mRNA E6/E7: NOT DETECTED This assay detects E6/E7 viral messenger RNA (mRNA) from 14 high-risk HPV types (16, 18, 31, 33, 35, 39, 45, 51, 52, 56, 58, 59, 66, 68) HPV testing performed by [facility], [place], [place]. See reference laboratory portion of the EMR for entire report. Clinical Information LMP: Unknown date Previous PAP test: 2016, WNL Material Received ThinPrep-Cervical ----- ------- Signed (signature on file) Jerri Gonzalez Jacques 02/23/24 1623 ----- ------- END OF REPORT Sabas Manuel CNM LAB CYTOLOGY ORDERABLES F inal Result [facility] [address] [place] [phone] * BI Mammogram Screening Tomosynthesis Bilateral (02/01/2024 9:35 AM EDT) Anatomical Region Laterality Modality Breast Bilateral Mammography 02/01/2024 9:35 AM EDT Narrative 02/16/2024 5:00 PM EDT [facility] [address] [place] [address] Mammography Report Signed Patient: Shahab Barragan MR#: [id number] : 1985 Acct:[id number] Age/Sex: 38 / F ADM Date: 02/01/24 Loc: HO.MAMMO Attending Dr: Andria Gomez MD Ordering Physician: Andria Gomez MD Results: 1Negati ve Date of Service: 02/01/24 Follow Up: 1 Year From Orig inal Mammogram Procedure(s): MM tomosynthesis screening BI Accession Number(s): [id number] cc: Andria Gomez MD EXAMINATION: MM SCREENING [...] in OV> 02/16/24 1657 DD/ 0935 TD/TT: Galley Cook: Procedure Note Donotuseinterpreter, Image - 02/16/[facility] [address] [place], [place] [address] Mammography Report Signed Patient: Jaz BarraganR#: [id number] : 1985Acct:[id number] Age/Sex: 38 / FADM Date: 02/01/24 Loc: HO.MAMMO Attending Dr: Andria Gomez MD Ordering Physician: Andria Gomez MDResults: 1Negati ve Date of Service: 02/01/24Follow Up: 1 Year From Orig inal Mammogram Procedure(s): MM tomosynthesis screening BI Accession Number(s): [id number] cc: Andria Gomez MD EXAMINATION: MM SCREENING [...] in OV> 02/16/24 1657 DD/ 0935 TD/TT: Galley Cook: Andria Gomez MD IMG BI PROCEDURES Edited Result - Final from Last 3 Months or Most Recently Relevant to Health Maintenance Insurance [place] [facility] MEDICAID STAND ADULT Care Teams Chemical Blender Relationship Specialty Start Date End Date Janice Wood CNP PCP - General Family Medicine 06/12/25
--- OUTSIDE RECORDS SUMMARY | 2025-10-13 00:14 | XMS_ITS | Encounter Summary ---
Author Organization [employer] Address [address] [facility] [address] [place] [address] Care Team Providers Care [employer] Delivery Driver Name Role Phone Andria Gomez MD Primary Care Provider [phone] Janice Wood CNP Primary Care Provider [phone] Reason for Visit * Reason Onset Date Comments confirmed rescheduled date 05/14/2025 Encounter Details Date Type Department Care Team ([facility] st Contact Info) Description 05/14/2025 Telephone [facility] [address] [place] [address] Hodan Miller confirmed rescheduled date Social History [...] Description 11/20/2025 12:45 PM EST Office Visit [facility] [address] [place] [address] Hodan Miller documented as of this encounter Visit Diagnoses Not on filedocumented in this encounter Additional Health Concerns Assessment Noted Time PHQ-9 Depression Total Score: 0 01/16/20 24 9:16 AM EDT documented as of this encounter Care Teams [employer] Delivery Driver Relationship Specialty Start Date End Date Andria Gomez MD [address] [place] [address] PCP - General Family Medicine 09/09/13 06/11/25 Janice Wood CNP [address] [place] [address] PCP - General Family Medicine 06/12/25 documented as of this encounter
--- OUTSIDE RECORDS SUMMARY | 2025-10-13 00:14 | XMS_ITS | Encounter Summary ---
Author Organization [employer] Address [address] [place] [address] 7 [place] [address] Care Team Providers Care Tube Cutter Operator Name Role Phone Andria Gomez MD Primary Care Provider [phone] Janice Wood CNP Primary Care Provider [phone] Encounter Details Date Type Department Care Team (Late st Contact Info) Description 12/07/2023 Telephone [facility] MEDICINE [address] [place], [place] [phone] Andria Gomez MD [address] [place] [address] Social History Tobacco Use Types Packs/Day Years [...] Description 11/20/2025 12:45 PM EST Office Visit [facility] ADULT [facility]AL [address] [place], [place] [phone] Hodan Miller documented as of this encounter Visit Diagnoses Not on filedocumented in this encounter Care Teams Tube Cutter Operator Relationship Specialty Start Date End Date Andria Gomez MD [address] [place] [address] PCP - General Family Medicine 09/09/13 06/11/25 Janice Wood CNP [address] [place] [address] PCP - General Family Medicine 06/12/25 documented as of this encounter
--- OUTSIDE RECORDS SUMMARY | 2025-10-13 00:14 | XMS_ITS | Encounter Summary ---
Author Organization [employer] Address [address] [place] [address] 7 [place] [address] Care Team Providers Care It Security Project Manager Name Role Phone Andria Gomez MD Primary Care Provider [phone] Janice Wood CNP Primary Care Provider [phone] Reason for Visit * Reason Onset Date Comments Appointment Request 12/07/2023 Encounter Details Date Type Department Care Team (Late Contact Info) Description 12/07/2023 Telephone [facility]INE [address] [place] [address] Andria Gomez MD [address] [place], [place] [phone] Appointment Request Social History Tobacco Use Types [...] Description 11/20/2025 12:45 PM EST Office Visit [facility] ADULT D[facility]AL [address] [place] [address] Hodan Miller documented as of this encounter Visit Diagnoses Not on filedocumented in this encounter Care Teams It Security Project Manager Relationship Specialty Start Date End Date Andria Gomez MD [address] [place] [address] PCP - General Family Medicine 09/09/13 06/11/25 Janice Wood CNP [address] [place] [address] PCP - General Family Medicine 06/12/25 documented as of this encounter
--- OUTSIDE RECORDS SUMMARY | 2025-10-13 00:14 | XMS_ITS | Encounter Summary ---
Author Organization [employer] Address [address] [place] [address] 7 [place] [address] Care Team Providers Care Midwife Name Role Phone Andria Gomez MD Primary Care Provider [phone] Janice Wood CNP Primary Care Provider [phone] Reason for Visit * Reason Onset Date Comments pain and root left in gum 06/04/2024 Encounter Details Date Type Department Care Team (Late st Contact Info) Description 06/04/2024 Telephone [facility] ADULT DENTAL [address] [place], [place] [phone] Pravin Dykes DDS [address] [place], [place] [phone] pain and root left in gum Social [...] Description 11/20/2025 12:45 PM EST Office Visit [facility] ADULT DENT[facility] [address] [place] [address] Hodan Miller documented as of this encounter Visit Diagnoses Not on filedocumented in this encounter Additional Health Concerns Assessment Noted Time PHQ-9 Depression Total Score: 0 01/16/20 24 9:16 AM EDT documented as of this encounter Care Teams Midwife Relationship Specialty Start Date End Date Andria Gomez MD [address] [place] [phone] PCP - General Family Medicine 09/09/13 06/11/25 Janice Wood CNP [address] [place] [address] PCP - General Family Medicine 06/12/25 documented as of this encounter
--- OUTSIDE RECORDS SUMMARY | 2025-10-13 00:14 | XMS_ITS | Encounter Summary ---
Author Organization [email or web address] Address [address] [place] [address] [address] [place] [address] Care Team Providers Care Master Electrician Name Role Phone Janice Wood DAE Primary Care Provider [phone] Encounter Details Date Type Department Care Team ([facility] Contact Info) Description 10/12/2025 Orders Only GENERIC EXTERNAL DATA [...] Description 11/20/2025 12:45 PM EST Office Visit [facility] ADULT D[facility]AL [address] [place] [address] Hodan Miller documented as of this encounter Procedures Procedure Name Priority Date/Time Associated Diagnosis Comments CBC WITH AUTO DIFFERENTIAL Routine 10/12/2025 3:56 PM EST COMPREHENSIVE METABOLIC PANEL Routine 10/12/2025 3:56 PM EST documented in this encounter Results * (ABNORMAL) CBC auto differential (10/12/2025 3:56 PM EST) White Blood Count 8.8 4.8 - 10.8 X10*3/uL [facility] Red Blood Count 4.71 4.20 - 5.50 X10*6/uL [facility] Hemoglobin 10.8(L) 12.0 - 16.0 g/dl [facility] Hematocrit 33.7(L) 37.0 - 47.0 % [facility] Mean Corpuscular Volume 71.5(L) 80.0 - 98.0 fL [facility] Mean Corpuscular Hemoglobin 22.9(L) 27.0 - 33.0 pg [facility] Mean Corpuscular HGB Conc 32.0 31.0 - 35.0 g/dl [facility] Red Cell Distribution Width 17.2(H) 11.0 - 16.0 % [facility] Platelet Count 248 160 - 400 X10*3/uL [facility] Neutrophils Percent Auto 66.7 45 - 73 % [facility] Imm Gran Pct Auto 0.3 0.0 - 0.4 % [facility] Lymphocytes Percent Auto 22.1 20 - 40 % [facility] Monocytes Percent Auto 7.6 2 - 11 % [facility] Eosinophils Percent Auto 2.7 0 - 4 % [facility] Basophils Percent Auto 0.6 0 - 2 % [facility] NRBC Pct Auto 0.0 0.0 - 0.2 /100WBC [facility] Neutrophils Absolute Auto 5.9 2.0 - 8.3 x10*3/uL [facility] Imm Gran Abs Auto 0.03 0.00 - 0.03 X10*3/uL [facility] Lymphocytes Absolute Auto 2.0 1.2 - 4.9 X10*3/uL [facility] Monocytes Absolute Auto 0.7 0.1 - 1.2 X10*3/uL [facility] Eosinophils Absolute Auto 0.2 0.0 - 0.4 X10*3/uL [facility] Basophils Absolute Auto 0.1 0.0 - 0.2 X10*3/uL [facility] NRBC Abs Auto 0.000 0.0 - 0.012 X10*3/uL [facility] 10/12/2025 3:56 PM EST 10/12/2025 3:57 PM EST us Generic External Data Provider LAB BLOOD ORDERAB LES Final Result [facility] [address] [place] [address] [phone] * (ABNORMAL) Comprehensive Metabolic Panel (10/12/2025 3:56 PM EST) Sodium 140 135 - 145 mmol/L [facility] Potassium 3.9 3.3 - 5.1 mmol/L [facility] Chloride 108 96 - 108 mmol/L [facility] Carbon Dioxide 23 22 - 29 mmol/L [facility] Anion Gap 13 12 - 20 [facility] Urea Nitrogen (BUN) 11 9 - 16 mg/dL [facility] Creatinine, Serum 0.54 0.5 - 1.4 mg/dL [facility] Estimated Glomerular Filt Rate >60 [facility] Comment:Chronic Kidney Disea se: Estimated GFR < 60 mL/min/[id number] Kidney Disease: Estimated GFR < 15 mL/min/1.73m2 Glucose 76 60 - 115 mg/dL [facility] Calcium 9.7 8.4 - 10.2 mg/dL [facility] Bilirubin, Total 0.7 0.0 - 1.0 mg/dL [facility] Aspartate Amino Transferase 23 5 - 31 U/L [facility] Alanine Aminotransferase 24 0 - 31 U/L [facility] Total Protein 8.3(H) 6.5 - 8.0 g/dL [facility] Albumin Level 5.2(H) 3.5 - 5.0 g/dL [facility] Alkaline Phosphatase 48 39 - 117 U/L [facility] 10/12/2025 3:56 PM EST 10/12/2025 3:57 PM EST us Generic External Data Provider LAB BLOOD ORDERAB LES Final Result Performing Organization Address City/State/[facility] Co de Phone Number [facility] [address] [place] [address] [phone] documented in this encounter Visit Diagnoses Not on filedocumented in this encounter Additional Health Concerns Assessment Noted Time PHQ-9 Depression Total Score: 0 01/16/20 24 9:16 AM EDT documented as of this encounter Care Teams Master Electrician Relationship Specialty Start Date End Date Janice Wood CNP PCP - General Family Medicine 06/12/25 documented as of this encounter
== END 2025-10-12 15:38 | disposition home or self-care (01) ==
LOC: HO.HGI 14:51
PROVIDERS: PCP Student in an Organized Health Care Education/Training Program; Visit Provider Internal Medicine Gastroenterology
DX: B18.1 Chronic viral hepatitis B without delta-agent (principal)
CPT/HCPCS: 99214

== ENCOUNTER 2025-10-12 14:50 | Outpatient (REF) | payer MEDICAID, SELFPAY ==
[2025-10-12 15:59] LABS: MANUAL DIFF FLAG NO
[2025-10-12 17:42] LABS: Alanine Aminotransferase 24 U/L (0-31); Albumin Level 5.2 g/dL (3.5-5.0); Alkaline Phosphatase 48 U/L (39-117); Anion Gap 13 (12-20); Aspartate Amino Transferase 23 U/L (5-31); Blood Urea Nitrogen 11 mg/dL (9-16); Calcium 9.7 mg/dL (8.4-10.2); Carbon Dioxide 23 mmol/L (22-29); Chloride 108 mmol/L (96-108); Estimated Glomerular Filt Rate > 60; Potassium 3.9 mmol/L (3.3-5.1); Sodium 140 mmol/L (135-145); Total Protein 8.3 g/dL (6.5-8.0)
[2025-10-12 17:47] LABS: Hematocrit 33.7 % (37.0-47.0); Hemoglobin 10.8 g/dl (12.0-16.0); Imm Gran Abs Auto 0.03 X10*3/uL (0.00-0.03); Imm Gran Pct Auto 0.3 % (0.0-0.4); Lymphocytes Absolute Auto 2.0 X10*3/uL (1.2-4.9); Mean Corpuscular HGB Conc 32.0 g/dl (31.0-35.0); Mean Corpuscular Hemoglobin 22.9 pg (27.0-33.0); Mean Corpuscular Volume 71.5 fL (80.0-98.0); NRBC Abs Auto 0.000 X10*3/uL (0.0-0.012); NRBC Pct Auto 0.0 /100WBC (0.0-0.2); Platelet Count 248 X10*3/uL (160-400); Red Blood Count 4.71 X10*6/uL (4.20-5.50); White Blood Count 8.8 X10*3/uL (4.8-10.8)
[2025-10-13 04:31] LABS: HBS Num1 0.00 mIU/mL (0-7.99); HBc Num1 11.23 S/CO (0.00-0.79); ~Hepatitis B Surface Antibody NONREACTIVE (Nonreactive)
[2025-10-13 05:22] LABS: HBc Num2 11.31 S/CO; HBc Num3 11.69 S/CO; HBsAGNum2 Reactive; HBsAGNum3 Reactive; Hepatitis B Surface Antigen Retest CNFM (Negative)
[2025-10-14 03:08] LABS: Hepatitis B Core Antibody IgM NON-REACTIVE (NON-REACTIVE)
== END 2025-10-12 14:51 | disposition home or self-care (01) ==
LOC: HO.LAB 14:50
PROVIDERS: PCP Student in an Organized Health Care Education/Training Program; Visit Provider Internal Medicine Gastroenterology
DX: K75.81 Nonalcoholic steatohepatitis (NASH) (principal); B18.1 Chronic viral hepatitis B without delta-agent
CPT/HCPCS: 36415; 80053; 85025; 86704; 86705; 86706; 87340